=== PATIENT | female | born 1955 | race Caucasian/White ===

== ENCOUNTER 2016-10-29 09:29 | Inpatient (IN) | payer MEDICAID ==
[~2016-10-29] VITALS: Ht 170.2 cm; Wt 146.1 kg
[~2016-10-29 09:29] MED LIST: ALBU4TAB4 PO; ALBUPOW26 IN; ALPR0.5T PO; AMLO5TAB2 PO; FURO80TA PO; METO-169 PO; ONGLYZA PO; [UNRECOGNIZED DRUG - OTHER] IN
[2016-10-29] MEDS ORDERED: FUROSEMIDE 20 MG/2 ML VIAL IV ONE (09:45)
[2016-10-29 11:01] LABS: B-Type Natriuretic Peptide 30.08 pg/mL (0-100)
[2016-10-29 11:02] LABS: Albumin 3.4 g/dL (3.4-5.0); BUN/Creatinine Ratio 23.6; Bilirubin, Total 0.4 mg/dL (0.2-1.0); Calcium 10.1 mg/dL (8.5-10.1); Potassium 4.4 mmol/L (3.5-5.1); Total Protein 7.7 g/dL (6.4-8.2)
[2016-10-29 11:04] LABS: Temperature: 22.3 C (20.0-25.0)
[2016-10-29] MEDS ORDERED: IOHEXOL 350 MG/ML 100ML IJ ONE (11:06)
[2016-10-29 11:11] LABS: Basophils # (auto) 0.1 uL; Eosinophils # (auto) 0.2 uL; Eosinophils % (auto) 1.6 % (0.0-7.0); Hematocrit 37.9 % (36.0-46.0); Hemoglobin 11.8 g/dL (12.2-16.2); Lymphocytes # (auto) 1.7 uL; Lymphocytes % (auto) 17.6 % (10.0-50.0); Mean Corpuscular Hgb Conc. 31.1 g/dL (32.0-36.0); Mean Corpuscular Volume 90.1 fL (80.0-100.0); Mean Platelet Volume 9.5 fL (7.4-10.4); Monocytes # (auto) 0.7 uL; Monocytes % (auto) 7.6 % (0.0-12.0); Neutrophils # (auto) 6.8 uL; Neutrophils % (auto) 72.2 % (37.0-80.0); Platelet Count (auto) 168 10^3/uL (140-450); Red Cell Distribution Width 14.7 % (11.6-16.0); White Blood Cell 9.5 10^3/uL (4.4-10.8)
[2016-10-29] MEDS ORDERED: ALBUTEROL SULF 2.5 MG/0.5ML(0.5%) NEB SOLN NEB ONE ×2 (11:15→12:30)
[2016-10-29] MEDS ORDERED: IPRATROPIUM BROM 0.5 MG/2.5ML INH SOL NEB ONE ×2 (11:15→12:30)
[2016-10-29] MEDS ORDERED: DEXTROSE (50%) 50ML SYRG IV PRN (14:30)
[2016-10-29] MEDS ORDERED: DOCUSATE SOD 100 MG CAP PO PRN (15:00)
[2016-10-29] MEDS ORDERED: ONDANSETRON HCL 4 MG/2 ML VIAL IV PRN (15:00)
[2016-10-29] MEDS ORDERED: HYDROcodone-ACET 5/325MG TAB PO PRN (15:00)
[2016-10-29] MEDS ORDERED: POTASSIUM CHL 20 Meq TABLET PO ONE (15:00)
[2016-10-29] MEDS ORDERED: TEMAZEPAM 15 MG CAP PO PRN (15:00)
[2016-10-29] MEDS ORDERED: ALPRAZolam 0.25 MG TAB PO PRN (15:00)
[2016-10-29] MEDS ORDERED: NITROGLYCERIN 0.4 MG SL TAB SL PRN (15:00)
[2016-10-29] MEDS ORDERED: MORPHINE SULF INJ 2 MG/ML SYRINGE 1ML IV PRN ×2 (15:00)
[2016-10-29] MEDS ORDERED: ACETAMINOPHEN 325 MG TAB PO PRN (15:00)
[2016-10-29] MEDS: ENOXAPARIN SOD 40 MG/0.4 ML SYRINGE SC SCH (15:15)
[2016-10-29] MEDS: DOXYCYCLINE HYC 100MG/250ML 250 ML IV SCH ×2 (15:16→22:00)
[2016-10-29] MEDS: FUROSEMIDE 40 MG/4 ML VIAL IV SCH ×2 (17:02→18:00)
[2016-10-29] MEDS: ACCU-CHEK COMFORT CURVE STRIP VI SCH ×2 (17:08→22:00)
[2016-10-29] MEDS: InsuLIN REG 1unit/0.01ml Soln (100units/ml) SC SCH ×2 (17:08→22:00)
[2016-10-29] MEDS: ALBUTEROL SULF 2 MG/5ML ORAL SYRUP PO SCH ×2 (18:00→23:43)
[2016-10-29] MEDS: ALBUTEROL SULF 2.5 MG/0.5ML(0.5%) NEB SOLN NEB PRN (20:45)
[2016-10-29 22:00] VITALS: BP 139/65
[2016-10-29] MEDS: SODIUM CHLOR 0.9% PF (SALINE LOCK) 10ML VIAL IV SCH (22:38)
[2016-10-29 23:15] VITALS: BP 139/65
[2016-10-30] MEDS: ALBUTEROL SULF 2.5 MG/0.5ML(0.5%) NEB SOLN NEB PRN ×5 (02:35→21:20)
[2016-10-30 03:39] VITALS: BP 139/65
[2016-10-30 05:27] VITALS: BP 119/51
[2016-10-30] MEDS: FUROSEMIDE 40 MG/4 ML VIAL IV SCH ×2 (05:54→17:25)
[2016-10-30] MEDS: SODIUM CHLOR 0.9% PF (SALINE LOCK) 10ML VIAL IV SCH ×3 (05:54→22:37)
[2016-10-30] MEDS: ACCU-CHEK COMFORT CURVE STRIP VI SCH ×4 (05:55→22:00)
[2016-10-30] MEDS: ALBUTEROL SULF 2 MG/5ML ORAL SYRUP PO SCH ×4 (05:57→22:36)
[2016-10-30] MEDS: InsuLIN REG 1unit/0.01ml Soln (100units/ml) SC SCH ×4 (06:37→23:01)
[2016-10-30 07:02] LABS: Albumin 3.1 g/dL (3.4-5.0); Calcium 8.8 mg/dL (8.5-10.1)
[2016-10-30 07:05] LABS: Bilirubin, Total 0.4 mg/dL (0.2-1.0); Total Protein 7.2 g/dL (6.4-8.2)
[2016-10-30 07:07] LABS: Basophils # (auto) 0.1 uL; Basophils % (auto) 0.6 % (0.0-2.0); Eosinophils # (auto) 0.1 uL; Eosinophils % (auto) 1.2 % (0.0-7.0); Hemoglobin 12.1 g/dL (12.2-16.2); Lymphocytes # (auto) 1.7 uL; Lymphocytes % (auto) 18.6 % (10.0-50.0); Mean Corpuscular Hemoglobin 28.9 pg (28.0-32.0); Mean Corpuscular Hgb Conc. 32.6 g/dL (32.0-36.0); Mean Corpuscular Volume 88.5 fL (80.0-100.0); Mean Platelet Volume 9.7 fL (7.4-10.4); Monocytes # (auto) 0.8 uL; Monocytes % (auto) 8.4 % (0.0-12.0); Neutrophils # (auto) 6.7 uL; Neutrophils % (auto) 71.2 % (37.0-80.0); Platelet Count (auto) 149 10^3/uL (140-450); Red Cell Distribution Width 15.7 % (11.6-16.0); White Blood Cell 9.3 10^3/uL (4.4-10.8)
[2016-10-30 07:44] LABS: Urine Bilirubin Negative (Negative); Urine Blood 1+ /uL (Negative); Urine Color Colorless (Yellow); Urine Glucose Normal (Normal); Urine Ketone Negative (Negative); Urine Nitrite Negative (Negative); Urine RBC 20 /hpf (0 - 4); Urine Urobilinogen Normal (Negative); Urine pH 5.5 (5.0-8.0)
[2016-10-30 09:00] VITALS: BP 131/83
[2016-10-30] MEDS ORDERED: PARoxetine 20 MG TAB PO SCH (10:00)
[2016-10-30] MEDS: ENOXAPARIN SOD 40 MG/0.4 ML SYRINGE SC SCH (10:00)
[2016-10-30] MEDS: DOXYCYCLINE HYC 100MG/250ML 250 ML IV SCH ×2 (10:12→22:36)
[2016-10-30] MEDS: MULTIPLE VITAMIN TAB PO SCH (10:12)
[2016-10-30] MEDS: POTASSIUM CHL 20 Meq TABLET PO SCH (10:12)
[2016-10-30 13:00] VITALS: BP 149/90
[2016-10-30 17:00] VITALS: BP 131/73
[2016-10-30] MEDS: Boost Glucose Control 8 Ounces PO SCH (17:26)
[2016-10-30 21:23] VITALS: BP 139/54
[2016-10-31 05:12] VITALS: BP 146/59
[2016-10-31] MEDS: ALBUTEROL SULF 2 MG/5ML ORAL SYRUP PO SCH ×3 (06:00→12:00)
[2016-10-31] MEDS: ALBUTEROL SULF 2.5 MG/0.5ML(0.5%) NEB SOLN NEB PRN ×3 (06:33→20:02)
[2016-10-31] MEDS: FUROSEMIDE 40 MG/4 ML VIAL IV SCH ×2 (06:34→18:08)
[2016-10-31] MEDS: SODIUM CHLOR 0.9% PF (SALINE LOCK) 10ML VIAL IV SCH ×3 (06:35→21:48)
[2016-10-31 06:46] LABS: Basophils # (auto) 0.1 uL; Basophils % (auto) 0.7 % (0.0-2.0); Eosinophils # (auto) 0.2 uL; Eosinophils % (auto) 2.1 % (0.0-7.0); Hematocrit 38.5 % (36.0-46.0); Hemoglobin 12.3 g/dL (12.2-16.2); Lymphocytes # (auto) 1.8 uL; Lymphocytes % (auto) 21.3 % (10.0-50.0); Mean Corpuscular Hemoglobin 28.6 pg (28.0-32.0); Mean Corpuscular Hgb Conc. 31.9 g/dL (32.0-36.0); Mean Corpuscular Volume 89.7 fL (80.0-100.0); Mean Platelet Volume 9.5 fL (7.4-10.4); Monocytes # (auto) 0.6 uL; Monocytes % (auto) 7.3 % (0.0-12.0); Neutrophils # (auto) 5.7 uL; Neutrophils % (auto) 68.6 % (37.0-80.0); Platelet Count (auto) 182 10^3/uL (140-450); Red Cell Distribution Width 15.9 % (11.6-16.0); White Blood Cell 8.3 10^3/uL (4.4-10.8)
[2016-10-31] MEDS: InsuLIN REG 1unit/0.01ml Soln (100units/ml) SC SCH ×4 (06:48→21:47)
[2016-10-31] MEDS: ACCU-CHEK COMFORT CURVE STRIP VI SCH ×4 (06:49→21:47)
[2016-10-31 07:09] LABS: Albumin 3.2 g/dL (3.4-5.0); BUN/Creatinine Ratio 21.4; Potassium 3.9 mmol/L (3.5-5.1)
[2016-10-31 07:12] LABS: Bilirubin, Total 0.4 mg/dL (0.2-1.0); Total Protein 7.7 g/dL (6.4-8.2)
[2016-10-31 09:00] VITALS: BP 132/64
[2016-10-31] MEDS: POTASSIUM CHL 20 Meq TABLET PO SCH (09:28)
[2016-10-31] MEDS: ENOXAPARIN SOD 40 MG/0.4 ML SYRINGE SC SCH ×2 (09:28→09:31)
[2016-10-31] MEDS: MULTIPLE VITAMIN TAB PO SCH (09:28)
[2016-10-31] MEDS: Boost Glucose Control 8 Ounces PO SCH ×3 (09:28→18:09)
[2016-10-31] MEDS: DOXYCYCLINE HYC 100MG/250ML 250 ML IV SCH (09:28)
[2016-10-31 13:00] VITALS: BP 145/50
[2016-10-31] MEDS: AZTREONAM 1GM INJ 1 GM in D5W 5% 50 ML IV SCH ×2 (14:08→21:48)
[2016-10-31] MEDS: IPRATROPIUM BROM 0.5 MG/2.5ML INH SOL NEB SCH ×2 (15:52→20:02)
[2016-10-31 17:00] VITALS: BP 117/63
[2016-10-31] MEDS: methylPREDNISolone SOD SUCC 40 MG/ML VL IV SCH (21:48)
[2016-10-31 22:36] VITALS: BP 112/56
[2016-11-01] MEDS: ALBUTEROL SULF 2.5 MG/0.5ML(0.5%) NEB SOLN NEB PRN ×4 (02:07→14:14)
[2016-11-01] MEDS: IPRATROPIUM BROM 0.5 MG/2.5ML INH SOL NEB SCH ×4 (02:07→14:14)
[2016-11-01 05:09] VITALS: BP 115/42
[2016-11-01] MEDS: AZTREONAM 1GM INJ 1 GM in D5W 5% 50 ML IV SCH (06:00)
[2016-11-01] MEDS: FUROSEMIDE 40 MG/4 ML VIAL IV SCH (06:04)
[2016-11-01] MEDS: SODIUM CHLOR 0.9% PF (SALINE LOCK) 10ML VIAL IV SCH (06:05)
[2016-11-01] MEDS: ACCU-CHEK COMFORT CURVE STRIP VI SCH ×2 (06:21→11:28)
[2016-11-01] MEDS: InsuLIN REG 1unit/0.01ml Soln (100units/ml) SC SCH ×2 (06:21→11:29)
[2016-11-01] MEDS: Boost Glucose Control 8 Ounces PO SCH ×2 (08:00→11:47)
[2016-11-01 08:18] LABS: Basophils # (auto) 0.1 uL; Basophils % (auto) 1.1 % (0.0-2.0); Eosinophils # (auto) 0.2 uL; Eosinophils % (auto) 2.2 % (0.0-7.0); Hematocrit 39.3 % (36.0-46.0); Hemoglobin 12.5 g/dL (12.2-16.2); Lymphocytes # (auto) 2.3 uL; Lymphocytes % (auto) 21.2 % (10.0-50.0); Mean Corpuscular Hemoglobin 28.6 pg (28.0-32.0); Mean Corpuscular Hgb Conc. 31.9 g/dL (32.0-36.0); Mean Corpuscular Volume 89.7 fL (80.0-100.0); Mean Platelet Volume 8.9 fL (7.4-10.4); Monocytes # (auto) 0.7 uL; Monocytes % (auto) 6.2 % (0.0-12.0); Neutrophils # (auto) 7.5 uL; Neutrophils % (auto) 69.3 % (37.0-80.0); Platelet Count (auto) 209 10^3/uL (140-450); Red Cell Distribution Width 15.9 % (11.6-16.0); White Blood Cell 10.9 10^3/uL (4.4-10.8)
[2016-11-01 08:20] LABS: BUN/Creatinine Ratio 24.3; Calcium 9.1 mg/dL (8.5-10.1); Magnesium 1.7 mg/dL (1.6-2.6); Potassium 3.7 mmol/L (3.5-5.1)
[2016-11-01 08:21] LABS: INR 1.04 (0.9-1.15); Prothrombin Time 10.7 sec (9.37-12.3)
[2016-11-01 08:40] VITALS: BP 153/58
[2016-11-01] MEDS: ENOXAPARIN SOD 40 MG/0.4 ML SYRINGE SC SCH (10:00)
[2016-11-01] MEDS: methylPREDNISolone SOD SUCC 40 MG/ML VL IV SCH (10:00)
[2016-11-01] MEDS ORDERED: AZITHROMYCIN 500MG/D5W 250ML 250 ML IV SCH (10:00)
[2016-11-01] MEDS: POTASSIUM CHL 20 Meq TABLET PO SCH (10:12)
[2016-11-01] MEDS: MULTIPLE VITAMIN TAB PO SCH (10:12)
[2016-11-01 12:43] VITALS: BP 112/61
[2016-11-01 14:39] VITALS: BP 112/61
== END 2016-11-01 15:26 | disposition home or self-care (01) | DRG 140 ==
LOC: ER 09:29 → EDUNIT# 09:29 → EDBD 09:29 → TELE 09:30 → TELE-EAST 22:55
PROVIDERS: ADMIT Internal Medicine; ATTEND Internal Medicine
DX: J44.0 Chronic obstructive pulmonary disease with (acute) lower respiratory infection (principal); I50.43 Acute on chronic combined systolic (congestive) and diastolic (congestive) heart failure; E44.0 Moderate protein-calorie malnutrition; E11.21 Type 2 diabetes mellitus with diabetic nephropathy; Z99.81 Dependence on supplemental oxygen; J44.1 Chronic obstructive pulmonary disease with (acute) exacerbation; E66.01 Morbid (severe) obesity due to excess calories; I13.0 Hypertensive heart and chronic kidney disease with heart failure and stage 1 through stage 4 chronic kidney disease, or unspecified chronic kidney disease; E11.22 Type 2 diabetes mellitus with diabetic chronic kidney disease; E78.5 Hyperlipidemia, unspecified; J20.9 Acute bronchitis, unspecified; J45.909 Unspecified asthma, uncomplicated; Z83.3 Family history of diabetes mellitus; Z68.43 Body mass index [BMI] 50.0-59.9, adult; Z79.4 Long term (current) use of insulin; Z90.710 Acquired absence of both cervix and uterus; Z90.89 Acquired absence of other organs; Z98.51 Tubal ligation status; Z80.9 Family history of malignant neoplasm, unspecified; Z82.49 Family history of ischemic heart disease and other diseases of the circulatory system; N18.2 Chronic kidney disease, stage 2 (mild); Z88.1 Allergy status to other antibiotic agents; Z88.8 Allergy status to other drugs, medicaments and biological substances; I69.959 Hemiplegia and hemiparesis following unspecified cerebrovascular disease affecting unspecified side
CPT/HCPCS: 36415; 71010; 80048; 80053; 81001; 82962; 83036; 83735; 83880; 84484; 85025; 85379; 85610; 87040; 87086; 87088; 87186; 93005; 93306; 93970; 94640; 96374; 96375; J1815; J2405; J3490; J7060

== ENCOUNTER 2017-08-06 02:45 | Inpatient (IN) | payer MEDICAID ==
[~2017-08-06] VITALS: Ht 157.5 cm; Wt 142.5 kg
[~2017-08-06 02:45] MED LIST changes: -FURO80TA PO
[2017-08-06] MEDS ORDERED: SODIUM CHLORIDE 0.9% 1,000 ML IV ONE (02:58)
[2017-08-06] MEDS ORDERED: IPRATROPIUM BROM 0.5 MG/2.5ML INH SOL HHN ONE (03:00)
[2017-08-06] MEDS ORDERED: ALBUTEROL SULF 2.5 MG/0.5ML(0.5%) NEB SOLN HHN ONE (03:00)
[2017-08-06] MEDS ORDERED: FUROSEMIDE 40 MG/4 ML VIAL IV ONE (03:00)
[2017-08-06 03:07] LABS: Basophils # (auto) 0.1 uL; Basophils % (auto) 0.9 % (0.0-2.0); Eosinophils # (auto) 0.1 uL; Eosinophils % (auto) 1.5 % (0.0-7.0); Hematocrit 38.4 % (36.0-46.0); Hemoglobin 12.4 g/dL (12.2-16.2); Lymphocytes # (auto) 2.4 uL; Lymphocytes % (auto) 26.2 % (10.0-50.0); Mean Corpuscular Hgb Conc. 32.4 g/dL (32.0-36.0); Mean Corpuscular Volume 92.6 fL (80.0-100.0); Monocytes # (auto) 0.7 uL; Monocytes % (auto) 7.3 % (0.0-12.0); Neutrophils # (auto) 5.9 uL; Neutrophils % (auto) 64.1 % (37.0-80.0); Nucleated Red Blood Cells % 0.1 %; Platelet Count (auto) 160 10^3/uL (140-450); Red Cell Distribution Width 15.4 % (11.8-14.3); White Blood Cell 9.2 10^3/uL (4.4-10.8)
[2017-08-06 03:42] LABS: Albumin 3.4 g/dL (3.4-5.0); Anion Gap 6 (5-15); Blood Urea Nitrogen 20 mg/dL (7-18); Calcium 9.3 mg/dL (8.5-10.1); Carbon Dioxide 35 mmol/L (21-32); Chloride 103 mmol/L (98-107); Glucose 128 mg/dL (74-106); Magnesium 1.9 mg/dL (1.6-2.6); Potassium 4.5 mmol/L (3.5-5.1); Sodium 144 mmol/L (136-145)
[2017-08-06 03:44] LABS: Allen Test Yes; Base Excess 9.1 mmol/L (-2.0-2.0); Blood 02Sat 95.1 % (96-100); Blood COHb 2.1 % (0.5-1.5); Blood MetHb 0.2 % (0.0-1.5); HCO3 36.2 mmol/L (22-26.0); HHb 4.8 % (0.0-5.0); MODE NASAL CANNULA; O2Hb 92.9 % (94.0-97.0); PCO2 62.1 mmHg (35.0-45.0); PCO2(T) 62.1 mmHg (35.0-45.0); PO2 81.4 mmHg (80.0-100.0); PO2(T) 81.4 mmHg (80.0-100.0); Sample Type Arterial; pH 7.384 (7.350-7.450)
[2017-08-06 03:57] LABS: Alkaline Phosphatase 112 U/L (45-117); Aspartate Aminotransferase 25 U/L (15-37); BUN/Creatinine Ratio 21.3; Bilirubin, Total 0.4 mg/dL (0.2-1.0); GFR African American 77 mL/min; GFR Non-African American 64 mL/min; Total Protein 7.8 g/dL (6.4-8.2)
[2017-08-06 04:05] LABS: B-Type Natriuretic Peptide 59.63 pg/mL (0-100)
[2017-08-06 04:15] LABS: Temperature: 21.9 C (20.0-25.0)
[2017-08-06 05:28] LABS: Lactic Acid w/Reflex 2.1 mmol/L (0.4-2.0)
[2017-08-06 05:52] LABS: REFLEX LACTIC ACID YES OR NO YES
[2017-08-06] MEDS ORDERED: ACETAMINOPHEN 325 MG TAB PO PRN (06:15)
[2017-08-06] MEDS ORDERED: HYDROcodone-ACET 5/325MG TAB PO PRN (06:15)
[2017-08-06] MEDS ORDERED: IPRATROPIUM BROM 0.5 MG/2.5ML INH SOL NEB PRN (06:15)
[2017-08-06] MEDS ORDERED: DEXTROSE (50%) 50ML SYRG IV PRN (06:15)
[2017-08-06] MEDS ORDERED: NITROGLYCERIN 0.4 MG SL TAB SL PRN (06:15)
[2017-08-06] MEDS ORDERED: ALBUTEROL SULF 2.5 MG/0.5ML(0.5%) NEB SOLN NEB PRN (06:15)
[2017-08-06] MEDS ORDERED: MORPHINE SULF INJ 2 MG/ML SYRINGE 1ML IV PRN (06:15)
[2017-08-06] MEDS ORDERED: TEMAZEPAM 15 MG CAP PO PRN (06:15)
[2017-08-06] MEDS ORDERED: ONDANSETRON HCL 4 MG/2 ML VIAL IV PRN (06:15)
[2017-08-06] MEDS: cefTRIAXone 1GM/50ML D5W 50 ML IV SCH (09:10)
[2017-08-06] MEDS: METOPROLOL TARTRATE 50 MG TAB PO SCH ×2 (09:28→21:12)
[2017-08-06] MEDS: AZITHROMYCIN 500MG/D5W 250ML 250 ML IV SCH (09:29)
[2017-08-06] MEDS: FAMOTIDINE 20 MG TAB PO SCH ×2 (09:29→21:13)
[2017-08-06] MEDS: amLODIPine BESYLATE 5 MG TAB PO SCH ×2 (09:29→22:00)
[2017-08-06] MEDS: ENOXAPARIN SOD 40 MG/0.4 ML SYRINGE SC SCH (09:29)
[2017-08-06 10:11] LABS: Urine RBC None Seen /hpf (0 - 4)
[2017-08-06 10:22] LABS: Urine Bilirubin Negative (Negative); Urine Blood Negative /uL (Negative); Urine Glucose Normal (Normal); Urine Ketone Negative (Negative); Urine Nitrite Negative (Negative); Urine Urobilinogen Normal (Negative)
[2017-08-06 10:23] LABS: Urine Color Straw (Yellow)
[2017-08-06] MEDS: InsuLIN REG 1unit/0.01ml Soln (100units/ml) SC SCH ×3 (12:00→21:13)
[2017-08-06] MEDS: ACCU-CHEK COMFORT CURVE STRIP VI SCH ×3 (12:00→21:13)
[2017-08-06] MEDS: IPRATROPIUM BROM 0.5 MG/2.5ML INH SOL NEB SCH ×3 (14:00→22:14)
[2017-08-06] MEDS: ALBUTEROL SULF 2.5 MG/0.5ML(0.5%) NEB SOLN NEB PRN ×3 (14:41→22:13)
[2017-08-06 16:14] VITALS: BP 143/72
[2017-08-06] MEDS: FUROSEMIDE 40 MG/4 ML VIAL IV SCH (18:26)
[2017-08-06 22:00] VITALS: BP 140/101
[2017-08-06] MEDS ORDERED: ALPR0.254 PO (23:25)
[2017-08-07 05:27] VITALS: BP 126/56
[2017-08-07] MEDS: FUROSEMIDE 40 MG/4 ML VIAL IV SCH ×2 (05:35→18:00)
[2017-08-07] MEDS: InsuLIN REG 1unit/0.01ml Soln (100units/ml) SC SCH ×5 (05:35→23:48)
[2017-08-07] MEDS: ACCU-CHEK COMFORT CURVE STRIP VI SCH ×4 (05:36→23:48)
[2017-08-07] MEDS: IPRATROPIUM BROM 0.5 MG/2.5ML INH SOL NEB SCH ×5 (05:57→22:14)
[2017-08-07] MEDS: ALBUTEROL SULF 2.5 MG/0.5ML(0.5%) NEB SOLN NEB PRN ×4 (05:57→22:14)
[2017-08-07 06:54] LABS: Basophils # (auto) 0.1 uL; Eosinophils # (auto) 0.1 uL; Eosinophils % (auto) 1.4 % (0.0-7.0); Hematocrit 36.9 % (36.0-46.0); Hemoglobin 12.2 g/dL (12.2-16.2); Lymphocytes % (auto) 21.3 % (10.0-50.0); Mean Corpuscular Hemoglobin 30.6 pg (28.0-32.0); Mean Corpuscular Hgb Conc. 33.1 g/dL (32.0-36.0); Mean Corpuscular Volume 92.2 fL (80.0-100.0); Mean Platelet Volume 8.8 fL (6.9-10.8); Monocytes # (auto) 0.8 uL; Neutrophils # (auto) 6.3 uL; Neutrophils % (auto) 67.3 % (37.0-80.0); Nucleated Red Blood Cells % 0.1 %; Platelet Count (auto) 176 10^3/uL (140-450); Red Cell Distribution Width 14.7 % (11.8-14.3); White Blood Cell 9.3 10^3/uL (4.4-10.8)
[2017-08-07 07:05] LABS: Potassium 3.9 mmol/L (3.5-5.1)
[2017-08-07 07:15] LABS: Albumin 3.3 g/dL (3.4-5.0); BUN/Creatinine Ratio 27.5; Bilirubin, Total 0.5 mg/dL (0.2-1.0); Calcium 9.3 mg/dL (8.5-10.1); Total Protein 7.4 g/dL (6.4-8.2)
[2017-08-07 09:00] VITALS: BP 136/70
[2017-08-07] MEDS: cefTRIAXone 1GM/50ML D5W 50 ML IV SCH ×2 (09:00→09:36)
[2017-08-07] MEDS: ENOXAPARIN SOD 40 MG/0.4 ML SYRINGE SC SCH (09:53)
[2017-08-07] MEDS: FAMOTIDINE 20 MG TAB PO SCH ×3 (09:53→21:46)
[2017-08-07] MEDS: AZITHROMYCIN 500MG/D5W 250ML 250 ML IV SCH (09:54)
[2017-08-07] MEDS: METOPROLOL TARTRATE 50 MG TAB PO SCH ×3 (09:57→21:45)
[2017-08-07] MEDS: amLODIPine BESYLATE 5 MG TAB PO SCH ×3 (09:57→21:46)
[2017-08-07] MEDS ORDERED: ALPR0.25 PO (10:36)
[2017-08-07 13:00] VITALS: BP 129/44
[2017-08-07] MEDS: ALPRAZolam 0.25 MG TAB PO SCH ×2 (16:36→21:44)
[2017-08-07 16:55] VITALS: BP 90/77
[2017-08-07 22:30] VITALS: BP 162/95
[2017-08-08] MEDS: ALBUTEROL SULF 2.5 MG/0.5ML(0.5%) NEB SOLN NEB PRN (02:33)
[2017-08-08 05:42] VITALS: BP 128/89
[2017-08-08] MEDS: ACCU-CHEK COMFORT CURVE STRIP VI SCH ×3 (05:42→17:20)
[2017-08-08] MEDS: InsuLIN REG 1unit/0.01ml Soln (100units/ml) SC SCH ×3 (05:42→17:20)
[2017-08-08] MEDS: FUROSEMIDE 40 MG/4 ML VIAL IV SCH ×2 (05:51→18:09)
[2017-08-08] MEDS: IPRATROPIUM BROM 0.5 MG/2.5ML INH SOL NEB SCH ×5 (07:26→23:56)
[2017-08-08] MEDS: ALBUTEROL SULF 2.5 MG/0.5ML(0.5%) NEB SOLN NEB SCH ×5 (07:26→23:56)
[2017-08-08] MEDS: ARMODAFINIL 150 MG TAB PO SCH (08:00)
[2017-08-08] MEDS: cefTRIAXone 1GM/50ML D5W 50 ML IV SCH (08:08)
[2017-08-08 09:00] VITALS: BP 171/67
[2017-08-08] MEDS: AZITHROMYCIN 500MG/D5W 250ML 250 ML IV SCH (09:43)
[2017-08-08] MEDS: METOPROLOL TARTRATE 50 MG TAB PO SCH ×2 (09:43→21:58)
[2017-08-08] MEDS: ALPRAZolam 0.25 MG TAB PO SCH ×2 (09:44→21:58)
[2017-08-08] MEDS: FAMOTIDINE 20 MG TAB PO SCH ×2 (09:44→21:58)
[2017-08-08] MEDS: amLODIPine BESYLATE 5 MG TAB PO SCH ×2 (09:44→21:58)
[2017-08-08] MEDS: ENOXAPARIN SOD 40 MG/0.4 ML SYRINGE SC SCH (09:44)
[2017-08-08 13:00] VITALS: BP 131/58
[2017-08-08] MEDS: AZITHROMYCIN 250 MG TAB PO SCH (14:36)
[2017-08-08 17:00] VITALS: BP 146/72
[2017-08-08 20:49] VITALS: BP 142/73
[2017-08-09] MEDS: ACCU-CHEK COMFORT CURVE STRIP VI SCH ×5 (00:08→23:46)
[2017-08-09] MEDS: InsuLIN REG 1unit/0.01ml Soln (100units/ml) SC SCH ×6 (00:09→23:47)
[2017-08-09] MEDS: IPRATROPIUM BROM 0.5 MG/2.5ML INH SOL NEB SCH ×5 (02:45→21:48)
[2017-08-09] MEDS: ALBUTEROL SULF 2.5 MG/0.5ML(0.5%) NEB SOLN NEB SCH ×5 (02:45→21:48)
[2017-08-09 05:00] VITALS: BP 125/53
[2017-08-09] MEDS: FUROSEMIDE 40 MG/4 ML VIAL IV SCH ×2 (06:10→17:30)
[2017-08-09] MEDS: ARMODAFINIL 150 MG TAB PO SCH (07:43)
[2017-08-09] MEDS: cefTRIAXone 1GM/50ML D5W 50 ML IV SCH (08:34)
[2017-08-09 09:00] VITALS: BP 158/85
[2017-08-09] MEDS: AZITHROMYCIN 250 MG TAB PO SCH (09:45)
[2017-08-09] MEDS: ALPRAZolam 0.25 MG TAB PO SCH ×2 (09:45→19:16)
[2017-08-09] MEDS: FAMOTIDINE 20 MG TAB PO SCH ×2 (09:46→21:31)
[2017-08-09] MEDS: ENOXAPARIN SOD 40 MG/0.4 ML SYRINGE SC SCH (09:46)
[2017-08-09] MEDS: METOPROLOL TARTRATE 50 MG TAB PO SCH ×2 (09:59→21:28)
[2017-08-09] MEDS: amLODIPine BESYLATE 5 MG TAB PO SCH ×2 (10:00→21:29)
[2017-08-09 13:00] VITALS: BP 126/61
[2017-08-09 17:00] VITALS: BP 157/77
[2017-08-09 18:52] LABS: BUN/Creatinine Ratio 33.8; Calcium 9.2 mg/dL (8.5-10.1); Potassium 3.8 mmol/L (3.5-5.1)
[2017-08-09 21:41] VITALS: BP 159/72
[2017-08-09 23:49] VITALS: BP 159/72
[2017-08-10] MEDS: IPRATROPIUM BROM 0.5 MG/2.5ML INH SOL NEB SCH ×4 (02:22→14:44)
[2017-08-10] MEDS: ALBUTEROL SULF 2.5 MG/0.5ML(0.5%) NEB SOLN NEB SCH ×4 (02:22→14:44)
[2017-08-10 05:00] VITALS: BP 142/67
[2017-08-10] MEDS: ACCU-CHEK COMFORT CURVE STRIP VI SCH ×2 (06:26→11:35)
[2017-08-10] MEDS: FUROSEMIDE 40 MG/4 ML VIAL IV SCH (06:27)
[2017-08-10] MEDS: InsuLIN REG 1unit/0.01ml Soln (100units/ml) SC SCH ×2 (06:27→12:14)
[2017-08-10 09:00] VITALS: BP 144/82
[2017-08-10] MEDS: cefTRIAXone 1GM/50ML D5W 50 ML IV SCH (09:00)
[2017-08-10] MEDS: ARMODAFINIL 150 MG TAB PO SCH (09:13)
[2017-08-10] MEDS: METOPROLOL TARTRATE 50 MG TAB PO SCH (09:14)
[2017-08-10] MEDS: AZITHROMYCIN 250 MG TAB PO SCH (09:16)
[2017-08-10] MEDS: ALPRAZolam 0.25 MG TAB PO SCH (09:20)
[2017-08-10] MEDS: FAMOTIDINE 20 MG TAB PO SCH (09:21)
[2017-08-10] MEDS: amLODIPine BESYLATE 5 MG TAB PO SCH (09:21)
[2017-08-10] MEDS: ENOXAPARIN SOD 40 MG/0.4 ML SYRINGE SC SCH (09:21)
[2017-08-10 13:00] VITALS: BP 120/57
[2017-08-10 13:49] VITALS: BP 120/57
[2017-08-10] MEDS ORDERED: ALBUTEROL SULF 2 MG/5ML ORAL SYRUP PO SCH (14:00)
[2017-08-11] MEDS ORDERED: DILTIAZEM HCL 180MG ER CAP PO SCH (10:00)
== END 2017-08-10 14:40 | disposition home or self-care (01) | DRG 140 ==
LOC: ER 02:52 → TELE 02:53 → TELE-WESTW 21:23 → WEST WING 21:25 → TELE-WESTW 08-07 00:24
PROVIDERS: ADMIT Internal Medicine; ATTEND Internal Medicine Pulmonary Disease
DX: J44.1 Chronic obstructive pulmonary disease with (acute) exacerbation (principal); J96.20 Acute and chronic respiratory failure, unspecified whether with hypoxia or hypercapnia; I50.33 Acute on chronic diastolic (congestive) heart failure; E87.4 Mixed disorder of acid-base balance; E11.9 Type 2 diabetes mellitus without complications; E78.5 Hyperlipidemia, unspecified; F41.9 Anxiety disorder, unspecified; E44.1 Mild protein-calorie malnutrition; E66.2 Morbid (severe) obesity with alveolar hypoventilation; I11.0 Hypertensive heart disease with heart failure; Z68.42 Body mass index [BMI] 45.0-49.9, adult; Z83.3 Family history of diabetes mellitus; Z80.9 Family history of malignant neoplasm, unspecified; Z90.710 Acquired absence of both cervix and uterus; Z82.49 Family history of ischemic heart disease and other diseases of the circulatory system; Z86.73 Personal history of transient ischemic attack (TIA), and cerebral infarction without residual deficits; Z99.81 Dependence on supplemental oxygen; Z68.43 Body mass index [BMI] 50.0-59.9, adult; Z90.49 Acquired absence of other specified parts of digestive tract; Z98.51 Tubal ligation status; Z80.8 Family history of malignant neoplasm of other organs or systems; Z88.6 Allergy status to analgesic agent; Z88.1 Allergy status to other antibiotic agents; Z71.3 Dietary counseling and surveillance
CPT/HCPCS: 36415; 36600; 51702; 71010; 80048; 80053; 81001; 82805; 82962; 83605; 83735; 83880; 84484; 85025; 87040; 94640; 94644; 94761; 96361; 96365; 96372; 96375; J0696; J1815; J2405

== ENCOUNTER 2017-10-25 01:44 | Inpatient (IN) | payer MEDICAID ==
[~2017-10-25] VITALS: Ht 167.6 cm; Wt 148.4 kg
[~2017-10-25 01:44] MED LIST changes: +ALPR0.254 PO; -ALPR0.5T PO
[2017-10-25] MEDS ORDERED: FUROSEMIDE 40 MG/4 ML VIAL IV ONE (02:45)
[2017-10-25 03:20] LABS: Basophils # (auto) 0.1 uL; Eosinophils # (auto) 0.2 uL; Eosinophils % (auto) 1.9 % (0.0-7.0); Hematocrit 35.1 % (36.0-46.0); Hemoglobin 11.3 g/dL (12.2-16.2); Lymphocytes % (auto) 20.6 % (10.0-50.0); Mean Corpuscular Hemoglobin 29.8 pg (28.0-32.0); Mean Corpuscular Hgb Conc. 32.2 g/dL (32.0-36.0); Mean Corpuscular Volume 92.6 fL (80.0-100.0); Monocytes # (auto) 0.7 uL; Monocytes % (auto) 7.1 % (0.0-12.0); Neutrophils # (auto) 6.9 uL; Neutrophils % (auto) 69.4 % (37.0-80.0); Nucleated Red Blood Cells % 0.1 %; Platelet Count (auto) 167 10^3/uL (140-450); Red Blood Cells 3.79 10^6/uL (4.0-5.20); Red Cell Distribution Width 15.3 % (11.8-14.3); White Blood Cell 9.9 10^3/uL (4.4-10.8)
[2017-10-25 03:37] LABS: Blood Urea Nitrogen 22 mg/dL (7-18); Calcium 9.2 mg/dL (8.5-10.1); Chloride 102 mmol/L (98-107); Potassium 4.1 mmol/L (3.5-5.1); Sodium 140 mmol/L (136-145)
[2017-10-25 03:41] LABS: Alanine Aminotransferase 28 U/L (13-56); Albumin 3.3 g/dL (3.4-5.0); Anion Gap 5 (5-15); Aspartate Aminotransferase 24 U/L (15-37); BUN/Creatinine Ratio 33.8; Carbon Dioxide 33 mmol/L (21-32); GFR African American 118 mL/min; GFR Non-African American 98 mL/min; Glucose 137 mg/dL (74-106); Magnesium 2.1 mg/dL (1.6-2.6)
[2017-10-25 03:45] LABS: Alkaline Phosphatase 99 U/L (45-117); Bilirubin, Total 0.3 mg/dL (0.2-1.0); Total Protein 7.7 g/dL (6.4-8.2)
[2017-10-25 06:28] LABS: Urine Bacteria MANY /hpf (None Seen); Urine Blood Negative /uL (Negative); Urine Mucus FEW (None Seen); Urine WBC 8 /hpf (0 - 5)
[2017-10-25] MEDS ORDERED: IPRATROPIUM BROM 0.5 MG/2.5ML INH SOL NEB ONE (07:45)
[2017-10-25] MEDS ORDERED: ALBUTEROL SULF 2.5 MG/0.5ML(0.5%) NEB SOLN NEB ONE (07:45)
[2017-10-25] MEDS ORDERED: TEMAZEPAM 15 MG CAP PO PRN (09:15)
[2017-10-25] MEDS ORDERED: NITROGLYCERIN 0.4 MG SL TAB SL PRN (09:15)
[2017-10-25] MEDS ORDERED: MORPHINE SULFATE 4 MG/ML SYR/VIAL IV PRN (09:15)
[2017-10-25] MEDS ORDERED: DOXYCYCLINE HYC 100MG/250ML 250 ML IV SCH (09:15)
[2017-10-25] MEDS ORDERED: PROMETHAZINE HCL 25 MG/ML 1ML IV PRN (09:15)
[2017-10-25] MEDS ORDERED: MORPHINE SULF INJ 2 MG/ML SYRINGE 1ML IV PRN (09:15)
[2017-10-25] MEDS ORDERED: DEXTROSE (50%) 50ML SYRG IV PRN (09:15)
[2017-10-25] MEDS ORDERED: ACETAMINOPHEN 500 MG TAB PO PRN (09:15)
[2017-10-25] MEDS ORDERED: LACTULOSE 20Gm/30ML SOLN PO PRN (09:15)
[2017-10-25] MEDS ORDERED: HYDROcodone-ACET 5/325MG TAB PO PRN (09:15)
[2017-10-25] MEDS ORDERED: OSELTAMIVIR 75 MG CAP PO ONE (09:15)
[2017-10-25] MEDS: METOPROLOL SUCCINATE XL 50 MG TAB PO SCH ×2 (10:38→21:54)
[2017-10-25] MEDS: amLODIPine BESYLATE 5 MG TAB PO SCH ×2 (10:38→21:58)
[2017-10-25] MEDS: PANTOPRAZOLE 40 MG TAB PO SCH (10:38)
[2017-10-25] MEDS: ENOXAPARIN SOD 40 MG/0.4 ML SYRINGE SC SCH (10:39)
[2017-10-25] MEDS: ALPRAZolam 0.25 MG TAB PO SCH ×2 (10:39→21:52)
[2017-10-25] MEDS ORDERED: AZITHROMYCIN 500MG/ 250ML 250 ML IV ONE (10:47)
[2017-10-25] MEDS: AZITHROMYCIN 500MG/ 250ML 250 ML IV SCH (10:50)
[2017-10-25 11:47] LABS: Albumin 3.3 g/dL (3.4-5.0); BUN/Creatinine Ratio 28.8; Bilirubin, Total 0.3 mg/dL (0.2-1.0); Calcium 9.4 mg/dL (8.5-10.1); Potassium 4.3 mmol/L (3.5-5.1); Total Protein 7.5 g/dL (6.4-8.2)
[2017-10-25] MEDS: ACCU-CHEK COMFORT CURVE STRIP VI SCH ×3 (11:52→22:09)
[2017-10-25] MEDS: InsuLIN REG 1unit/0.01ml Soln (100units/ml) SC SCH ×3 (11:56→22:10)
[2017-10-25] MEDS: ALBUTEROL SULF 2.5 MG/0.5ML(0.5%) NEB SOLN NEB SCH ×2 (12:15→17:00)
[2017-10-25] MEDS: IPRATROPIUM BROM 0.5 MG/2.5ML INH SOL NEB SCH ×2 (12:15→19:01)
[2017-10-25 16:15] VITALS: BP_SYST 141; BP_SYST 163; BP_DIAS 72; BP_DIAS 86
[2017-10-25 17:29] VITALS: BP 163/86
[2017-10-25] MEDS: ALBUTEROL SULF 2.5 MG/0.5ML(0.5%) NEB SOLN NEB PRN ×2 (19:01→22:14)
[2017-10-25 19:04] VITALS: BP 113/86
[2017-10-25] MEDS: OSELTAMIVIR 75 MG CAP PO SCH (19:42)
[2017-10-25 22:00] VITALS: BP 152/64
[2017-10-25] MEDS ORDERED: FUROSEMIDE 20 MG TAB PO ONE (22:15)
[2017-10-26] MEDS: IPRATROPIUM BROM 0.5 MG/2.5ML INH SOL NEB SCH ×5 (00:38→23:24)
[2017-10-26] MEDS: ALBUTEROL SULF 2.5 MG/0.5ML(0.5%) NEB SOLN NEB SCH ×5 (00:39→23:24)
[2017-10-26] MEDS: ALBUTEROL SULF 2.5 MG/0.5ML(0.5%) NEB SOLN NEB PRN (04:12)
[2017-10-26 05:00] VITALS: BP 148/71
[2017-10-26 05:37] LABS: Basophils # (auto) 0.1 uL; Eosinophils # (auto) 0.2 uL; Eosinophils % (auto) 1.9 % (0.0-7.0); Hematocrit 36.4 % (36.0-46.0); Hemoglobin 11.7 g/dL (12.2-16.2); Lymphocytes # (auto) 1.8 uL; Lymphocytes % (auto) 22.9 % (10.0-50.0); Mean Corpuscular Hemoglobin 29.7 pg (28.0-32.0); Mean Corpuscular Hgb Conc. 32.1 g/dL (32.0-36.0); Mean Corpuscular Volume 92.5 fL (80.0-100.0); Monocytes # (auto) 0.6 uL; Monocytes % (auto) 7.8 % (0.0-12.0); Neutrophils # (auto) 5.3 uL; Neutrophils % (auto) 66.4 % (37.0-80.0); Platelet Count (auto) 153 10^3/uL (140-450); Red Blood Cells 3.93 10^6/uL (4.0-5.20); Red Cell Distribution Width 15.2 % (11.8-14.3)
[2017-10-26 06:04] LABS: Cholesterol 190 mg/dL (< 200); HDL Cholesterol 49 mg/dL (40-59); LDL Cholesterol 128 mg/dL (< 100); Triglycerides 187 mg/dL (< 150)
[2017-10-26] MEDS: ACCU-CHEK COMFORT CURVE STRIP VI SCH ×4 (06:31→21:38)
[2017-10-26] MEDS: InsuLIN REG 1unit/0.01ml Soln (100units/ml) SC SCH ×4 (06:31→21:39)
[2017-10-26 08:33] VITALS: BP 130/62
[2017-10-26] MEDS: amLODIPine BESYLATE 5 MG TAB PO SCH ×2 (10:00→21:40)
[2017-10-26] MEDS: OSELTAMIVIR 75 MG CAP PO SCH ×2 (10:00→21:41)
[2017-10-26] MEDS: ENOXAPARIN SOD 40 MG/0.4 ML SYRINGE SC SCH ×2 (10:13→10:17)
[2017-10-26] MEDS: ALPRAZolam 0.25 MG TAB PO SCH ×2 (10:13→21:23)
[2017-10-26] MEDS: PANTOPRAZOLE 40 MG TAB PO SCH (10:14)
[2017-10-26] MEDS: METOPROLOL SUCCINATE XL 50 MG TAB PO SCH ×2 (10:15→21:24)
[2017-10-26] MEDS: AZITHROMYCIN 500MG/ 250ML 250 ML IV SCH (10:16)
[2017-10-26 12:35] VITALS: BP 146/68
[2017-10-26 17:06] VITALS: BP 147/59
[2017-10-26] MEDS: FUROSEMIDE 40 MG/4 ML VIAL IV SCH (17:37)
[2017-10-26 22:00] VITALS: BP 161/70
[2017-10-27 05:00] VITALS: BP 121/51
[2017-10-27] MEDS: FUROSEMIDE 40 MG/4 ML VIAL IV SCH (06:11)
[2017-10-27] MEDS: ACCU-CHEK COMFORT CURVE STRIP VI SCH ×2 (06:12→11:30)
[2017-10-27] MEDS: InsuLIN REG 1unit/0.01ml Soln (100units/ml) SC SCH ×2 (06:12→11:30)
[2017-10-27 07:30] VITALS: BP 121/51
[2017-10-27] MEDS: IPRATROPIUM BROM 0.5 MG/2.5ML INH SOL NEB SCH ×2 (07:55→13:28)
[2017-10-27] MEDS: ALBUTEROL SULF 2.5 MG/0.5ML(0.5%) NEB SOLN NEB SCH ×2 (07:55→13:29)
[2017-10-27 08:28] VITALS: BP 135/72
[2017-10-27 09:21] LABS: Basophils # (auto) 0.1 uL; Basophils % (auto) 1.1 % (0.0-2.0); Eosinophils # (auto) 0.2 uL; Eosinophils % (auto) 1.9 % (0.0-7.0); Hematocrit 38.4 % (36.0-46.0); Hemoglobin 12.3 g/dL (12.2-16.2); Lymphocytes # (auto) 1.5 uL; Lymphocytes % (auto) 17.2 % (10.0-50.0); Mean Corpuscular Hemoglobin 29.5 pg (28.0-32.0); Mean Corpuscular Hgb Conc. 31.9 g/dL (32.0-36.0); Mean Corpuscular Volume 92.4 fL (80.0-100.0); Monocytes # (auto) 0.7 uL; Monocytes % (auto) 7.3 % (0.0-12.0); Neutrophils # (auto) 6.5 uL; Neutrophils % (auto) 72.5 % (37.0-80.0); Platelet Count (auto) 183 10^3/uL (140-450); Red Blood Cells 4.15 10^6/uL (4.0-5.20); Red Cell Distribution Width 14.8 % (11.8-14.3); White Blood Cell 8.9 10^3/uL (4.4-10.8)
[2017-10-27] MEDS: amLODIPine BESYLATE 5 MG TAB PO SCH (09:37)
[2017-10-27] MEDS: PANTOPRAZOLE 40 MG TAB PO SCH (09:37)
[2017-10-27] MEDS: ALPRAZolam 0.25 MG TAB PO SCH (09:40)
[2017-10-27] MEDS: METOPROLOL SUCCINATE XL 50 MG TAB PO SCH (09:40)
[2017-10-27 09:51] LABS: Albumin 3.3 g/dL (3.4-5.0); BUN/Creatinine Ratio 22.8; Bilirubin, Total 0.4 mg/dL (0.2-1.0); Magnesium 1.8 mg/dL (1.6-2.6); Phosphorus 2.8 mg/dL (2.5-4.90); Potassium 4.1 mmol/L (3.5-5.1); Total Protein 7.6 g/dL (6.4-8.2)
[2017-10-27] MEDS ORDERED: AZITHROMYCIN 250 MG TAB PO SCH (10:00)
[2017-10-27 12:53] VITALS: BP 149/81
[2017-10-27] MEDS: cefTRIAXone 1GM/10ml IVPUSH 10 ML IV ONE (14:30)
[2017-10-27] MEDS ORDERED: FURO40TA4 PO (16:14)
[2017-10-27] MEDS ORDERED: SACC1CAP3 PO (16:14)
[2017-10-27] MEDS ORDERED: NITR-52 PO (16:14)
[2017-10-27] MEDS ORDERED: PRED1PAK10 PO (16:14)
[2017-10-27 16:56] VITALS: BP 123/65
[2017-10-27 17:44] VITALS: BP 135/72
[2017-10-28] MEDS ORDERED: cefTRIAXone 1GM/10ml IVPUSH 10 ML IV SCH (09:00)
== END 2017-10-27 19:00 | disposition home or self-care (01) | DRG 133 ==
LOC: ER 01:44 → EDBD 01:44 → TELE 01:45 → TELE-CENTR 16:21
PROVIDERS: ADMIT Internal Medicine; ATTEND Internal Medicine
DX: J96.20 Acute and chronic respiratory failure, unspecified whether with hypoxia or hypercapnia (principal); I50.43 Acute on chronic combined systolic (congestive) and diastolic (congestive) heart failure; D68.59 Other primary thrombophilia; Z99.81 Dependence on supplemental oxygen; J44.0 Chronic obstructive pulmonary disease with (acute) lower respiratory infection; Z68.43 Body mass index [BMI] 50.0-59.9, adult; I11.0 Hypertensive heart disease with heart failure; J96.10 Chronic respiratory failure, unspecified whether with hypoxia or hypercapnia; J20.9 Acute bronchitis, unspecified; N39.0 Urinary tract infection, site not specified; J44.1 Chronic obstructive pulmonary disease with (acute) exacerbation; E11.9 Type 2 diabetes mellitus without complications; B96.20 Unspecified Escherichia coli [E. coli] as the cause of diseases classified elsewhere; E66.01 Morbid (severe) obesity due to excess calories; J98.11 Atelectasis; G47.30 Sleep apnea, unspecified; E78.5 Hyperlipidemia, unspecified; D63.8 Anemia in other chronic diseases classified elsewhere; Z88.1 Allergy status to other antibiotic agents; Z88.8 Allergy status to other drugs, medicaments and biological substances; Z82.49 Family history of ischemic heart disease and other diseases of the circulatory system; Z83.3 Family history of diabetes mellitus; Z86.73 Personal history of transient ischemic attack (TIA), and cerebral infarction without residual deficits; Z90.710 Acquired absence of both cervix and uterus; Z98.51 Tubal ligation status
CPT/HCPCS: 36415; 71010; 80053; 80061; 81001; 82962; 83036; 83735; 83880; 84100; 84443; 84484; 85025; 87040; 87086; 87088; 87186; 87400; 93005; 93306; 94640; 96365; 96368; 96375; J1815; J3490

== ENCOUNTER 2017-11-23 20:50 | Inpatient (IN) | payer MEDICAID ==
[~2017-11-23] VITALS: Ht 165.1 cm; Wt 141.3 kg
[2017-11-23] MEDS: IPRATROPIUM BROM 0.5 MG/2.5ML INH SOL NEB ONE (00:50)
[2017-11-23] MEDS: ALBUTEROL SULF 2.5 MG/0.5ML(0.5%) NEB SOLN NEB ONE (00:50)
[~2017-11-23 20:50] MED LIST changes: +FURO40TA4 PO; +NITR-52 PO; +PRED1PAK10 PO; +SACC1CAP3 PO
[2017-11-23 22:36] LABS: Basophils # (auto) 0.1 uL; Basophils % (auto) 1.3 % (0.0-2.0); Eosinophils # (auto) 0.2 uL; Eosinophils % (auto) 2.6 % (0.0-7.0); Hematocrit 37.4 % (36.0-46.0); Hemoglobin 12.1 g/dL (12.2-16.2); Lymphocytes # (auto) 1.3 uL; Lymphocytes % (auto) 17.2 % (10.0-50.0); Mean Corpuscular Hemoglobin 29.7 pg (28.0-32.0); Mean Corpuscular Hgb Conc. 32.4 g/dL (32.0-36.0); Mean Corpuscular Volume 91.9 fL (80.0-100.0); Monocytes # (auto) 0.7 uL; Monocytes % (auto) 9.7 % (0.0-12.0); Neutrophils # (auto) 5.2 uL; Neutrophils % (auto) 69.2 % (37.0-80.0); Platelet Count (auto) 173 10^3/uL (140-450); Red Blood Cells 4.07 10^6/uL (4.0-5.20); Red Cell Distribution Width 15.2 % (11.8-14.3); White Blood Cell 7.6 10^3/uL (4.4-10.8)
[2017-11-23 22:52] LABS: INR 0.89 (0.9-1.15); Partial Thromboplastin Time 27.3 sec (22.64-33.71); Prothrombin Time 9.7 sec (9.37-12.3)
[2017-11-23 22:55] LABS: Urine Bacteria MOD /hpf (None Seen); Urine Blood Negative /uL (Negative); Urine Mucus FEW (None Seen); Urine Specific Gravity 1.015 (1.001-1.035); Urine WBC <1 /hpf (0 - 5)
[2017-11-23 23:01] LABS: Albumin 3.4 g/dL (3.4-5.0); BUN/Creatinine Ratio 29.6; Bilirubin, Total 0.3 mg/dL (0.2-1.0); Calcium 9.3 mg/dL (8.5-10.1); Magnesium 2.4 mg/dL (1.6-2.6); Potassium 4.2 mmol/L (3.5-5.1); Total Protein 8.1 g/dL (6.4-8.2)
[2017-11-23] MEDS ORDERED: FUROSEMIDE 20 MG/2 ML VIAL IV ONE (23:30)
[2017-11-24] MEDS: IPRATROPIUM BROM 0.5 MG/2.5ML INH SOL NEB ONE (00:50)
[2017-11-24] MEDS: ALBUTEROL SULF 2.5 MG/0.5ML(0.5%) NEB SOLN NEB ONE (00:50)
[2017-11-24] MEDS ORDERED: FUROSEMIDE 20 MG/2 ML VIAL IV ONE (01:30)
[2017-11-24] MEDS ORDERED: HYDROcodone-ACET 5/325MG TAB PO PRN (06:15)
[2017-11-24] MEDS ORDERED: DEXTROSE (50%) 50ML SYRG IV PRN (06:15)
[2017-11-24] MEDS ORDERED: ONDANSETRON HCL 4 MG/2 ML VIAL IV PRN (06:15)
[2017-11-24] MEDS ORDERED: MORPHINE SULF INJ 2 MG/ML SYRINGE 1ML IV PRN (06:15)
[2017-11-24] MEDS ORDERED: ALBUTEROL SULF 2.5 MG/0.5ML(0.5%) NEB SOLN NEB ONE (06:15)
[2017-11-24] MEDS ORDERED: NITROGLYCERIN 0.4 MG SL TAB SL PRN (06:15)
[2017-11-24] MEDS ORDERED: IPRATROPIUM BROM 0.5 MG/2.5ML INH SOL NEB ONE (06:15)
[2017-11-24] MEDS ORDERED: TEMAZEPAM 15 MG CAP PO PRN (06:15)
[2017-11-24 08:21] VITALS: BP 139/89
[2017-11-24] MEDS: FAMOTIDINE 20 MG TAB PO SCH ×2 (10:00→22:00)
[2017-11-24] MEDS ORDERED: AZITHROMYCIN 500MG/ 250ML 250 ML IV SCH (10:00)
[2017-11-24] MEDS: ENOXAPARIN SOD 40 MG/0.4 ML SYRINGE SC SCH (10:00)
[2017-11-24] MEDS ORDERED: predniSONE 5 MG TAB PO SCH ×2 (10:00)
[2017-11-24] MEDS: amLODIPine BESYLATE 5 MG TAB PO SCH ×2 (10:00→22:00)
[2017-11-24] MEDS ORDERED: methylPREDNISolone SOD SUCC 125 MG/2 ML VL IV SCH (10:00)
[2017-11-24] MEDS: ALBUTEROL SULF 2.5 MG/0.5ML(0.5%) NEB SOLN NEB SCH ×4 (10:47→22:04)
[2017-11-24] MEDS: IPRATROPIUM BROM 0.5 MG/2.5ML INH SOL NEB PRN ×4 (10:47→22:04)
[2017-11-24] MEDS ORDERED: FUROSEMIDE 20 MG/2 ML VIAL ONE (11:23)
[2017-11-24] MEDS: METOPROLOL TARTRATE 50 MG TAB PO SCH ×3 (11:41→22:00)
[2017-11-24 13:46] VITALS: BP 149/84
[2017-11-24 17:04] VITALS: BP 138/92
[2017-11-24] MEDS ORDERED: FUROSEMIDE 40 MG TAB PO SCH (18:00)
[2017-11-24 18:44] VITALS: BP 149/84
[2017-11-24] MEDS: InsuLIN REG 1unit/0.01ml Soln (100units/ml) SC SCH ×2 (19:00→19:01)
[2017-11-24] MEDS: ACCU-CHEK COMFORT CURVE STRIP VI SCH ×2 (19:00→19:01)
[2017-11-24] MEDS: FUROSEMIDE 20 MG TAB PO SCH (19:01)
[2017-11-24] MEDS: POTASSIUM CHL 20 Meq TABLET PO SCH (22:16)
[2017-11-24 22:51] VITALS: BP 139/80
[2017-11-25] MEDS: ACCU-CHEK COMFORT CURVE STRIP VI SCH ×4 (00:10→18:47)
[2017-11-25] MEDS: InsuLIN REG 1unit/0.01ml Soln (100units/ml) SC SCH ×4 (00:10→18:46)
[2017-11-25] MEDS: ALBUTEROL SULF 2.5 MG/0.5ML(0.5%) NEB SOLN NEB SCH ×5 (02:10→19:11)
[2017-11-25] MEDS: IPRATROPIUM BROM 0.5 MG/2.5ML INH SOL NEB PRN ×5 (02:10→19:11)
[2017-11-25] MEDS: FUROSEMIDE 20 MG TAB PO SCH ×2 (05:37→18:47)
[2017-11-25 06:00] VITALS: BP 132/68
[2017-11-25 06:40] LABS: Basophils # (auto) 0 uL; Basophils % (auto) 0.9 % (0.0-2.0); Eosinophils # (auto) 0.1 uL; Eosinophils % (auto) 2.4 % (0.0-7.0); Hematocrit 35.9 % (36.0-46.0); Hemoglobin 11.7 g/dL (12.2-16.2); Lymphocytes % (auto) 18.1 % (10.0-50.0); Mean Corpuscular Hemoglobin 29.7 pg (28.0-32.0); Mean Corpuscular Hgb Conc. 32.7 g/dL (32.0-36.0); Mean Corpuscular Volume 90.9 fL (80.0-100.0); Monocytes # (auto) 0.6 uL; Monocytes % (auto) 11.2 % (0.0-12.0); Neutrophils # (auto) 3.8 uL; Neutrophils % (auto) 67.4 % (37.0-80.0); Nucleated Red Blood Cells % 0.2 %; Platelet Count (auto) 161 10^3/uL (140-450); Red Blood Cells 3.95 10^6/uL (4.0-5.20); Red Cell Distribution Width 15.3 % (11.8-14.3); White Blood Cell 5.6 10^3/uL (4.4-10.8)
[2017-11-25 07:05] LABS: Albumin 3.3 g/dL (3.4-5.0); BUN/Creatinine Ratio 26.1; Bilirubin, Total 0.5 mg/dL (0.2-1.0); Calcium 8.8 mg/dL (8.5-10.1); Potassium 3.8 mmol/L (3.5-5.1); Total Protein 7.9 g/dL (6.4-8.2)
[2017-11-25 09:00] VITALS: BP 119/76
[2017-11-25] MEDS: ENOXAPARIN SOD 40 MG/0.4 ML SYRINGE SC SCH (10:00)
[2017-11-25] MEDS: amLODIPine BESYLATE 5 MG TAB PO SCH ×2 (10:00→21:56)
[2017-11-25] MEDS: METOPROLOL TARTRATE 50 MG TAB PO SCH ×2 (10:00→21:28)
[2017-11-25] MEDS: FAMOTIDINE 20 MG TAB PO SCH ×2 (10:00→21:56)
[2017-11-25] MEDS: BUDESONIDE (INHALATION) 0.5 MG/2 ML NEB NEB SCH ×2 (10:45→19:11)
[2017-11-25] MEDS ORDERED: methylPREDNISolone SOD SUCC 125 MG/2 ML VL IV SCH (12:00)
[2017-11-25] MEDS: POTASSIUM CHL 20 Meq TABLET PO SCH ×2 (12:22→21:29)
[2017-11-25] MEDS: AZITHROMYCIN 250 MG TAB PO SCH (12:24)
[2017-11-25 13:00] VITALS: BP 149/82
[2017-11-25 17:00] VITALS: BP 151/73
[2017-11-25 22:00] VITALS: BP 154/74
[2017-11-25] MEDS ORDERED: DILTIAZEM HCL 25 MG/5 ML VIAL IV ONE (22:15)
[2017-11-26] MEDS: InsuLIN REG 1unit/0.01ml Soln (100units/ml) SC SCH ×4 (00:26→18:00)
[2017-11-26] MEDS: ACCU-CHEK COMFORT CURVE STRIP VI SCH ×4 (00:26→18:09)
[2017-11-26 05:00] VITALS: BP 112/72
[2017-11-26] MEDS ORDERED: FUROSEMIDE 40 MG/4 ML VIAL IV ONE (06:00)
[2017-11-26] MEDS: FUROSEMIDE 20 MG TAB PO SCH ×2 (06:19→18:19)
[2017-11-26] MEDS: IPRATROPIUM BROM 0.5 MG/2.5ML INH SOL NEB PRN ×5 (06:43→22:33)
[2017-11-26] MEDS: ALBUTEROL SULF 2.5 MG/0.5ML(0.5%) NEB SOLN NEB SCH ×3 (06:43→19:08)
[2017-11-26 06:54] LABS: INR 0.93 (0.9-1.15); Partial Thromboplastin Time 28.2 sec (22.64-33.71); Prothrombin Time 10.1 sec (9.37-12.3)
[2017-11-26 07:04] LABS: Albumin 3.1 g/dL (3.4-5.0); Bilirubin, Total 0.8 mg/dL (0.2-1.0); Potassium 4.1 mmol/L (3.5-5.1); Total Protein 7.7 g/dL (6.4-8.2)
[2017-11-26 08:00] VITALS: BP 127/82
[2017-11-26 09:00] VITALS: BP 127/82
[2017-11-26] MEDS ORDERED: DILTIAZEM HCL 25 MG/5 ML VIAL IV ONE ×4 (09:15→10:00)
[2017-11-26] MEDS: amLODIPine BESYLATE 5 MG TAB PO SCH ×2 (10:00→21:31)
[2017-11-26] MEDS: FAMOTIDINE 20 MG TAB PO SCH ×2 (10:00→21:31)
[2017-11-26] MEDS: ENOXAPARIN SOD 40 MG/0.4 ML SYRINGE SC SCH (10:00)
[2017-11-26] MEDS: METOPROLOL TARTRATE 50 MG TAB PO SCH (10:00)
[2017-11-26] MEDS: BUDESONIDE (INHALATION) 0.5 MG/2 ML NEB NEB SCH ×2 (10:00→19:08)
[2017-11-26] MEDS ORDERED: DILTIAZEM 125mg/125ml BAG KIT 125 ML IV SCH ×2 (11:00→13:00)
[2017-11-26] MEDS: AZITHROMYCIN 250 MG TAB PO SCH (11:48)
[2017-11-26] MEDS: POTASSIUM CHL 20 Meq TABLET PO SCH ×2 (11:48→21:19)
[2017-11-26 15:50] VITALS: BP 114/82
[2017-11-26] MEDS: ACETAMINOPHEN 325 MG TAB PO PRN (15:54)
[2017-11-26] MEDS ORDERED: WARFARIN SODIUM 2.5 MG TAB PO ONE (17:00)
[2017-11-26] MEDS ORDERED: SOTALOL HCL 80 MG TAB PO ONE (17:15)
[2017-11-26] MEDS ORDERED: FUROSEMIDE 20 MG TAB PO ONE (18:30)
[2017-11-26] MEDS: ALPRAZolam 0.25 MG TAB PO PRN (19:33)
[2017-11-26 19:50] VITALS: BP 118/89
[2017-11-26] MEDS: AMIODARONE HCL 200 MG TAB PO SCH (21:20)
[2017-11-26] MEDS ORDERED: SOTALOL HCL 80 MG TAB PO SCH (22:00)
[2017-11-27] VITALS: BP 101/61
[2017-11-27] MEDS: ACCU-CHEK COMFORT CURVE STRIP VI SCH ×5 (00:01→23:43)
[2017-11-27] MEDS: InsuLIN REG 1unit/0.01ml Soln (100units/ml) SC SCH ×5 (00:10→23:43)
[2017-11-27] MEDS: ACETAMINOPHEN 325 MG TAB PO PRN (01:20)
[2017-11-27 05:49] LABS: INR 0.93 (0.9-1.15); Partial Thromboplastin Time 25.7 sec (22.64-33.71); Prothrombin Time 10.1 sec (9.37-12.3)
[2017-11-27 05:53] LABS: BUN/Creatinine Ratio 32.4; Bilirubin, Total 0.4 mg/dL (0.2-1.0); Potassium 4.2 mmol/L (3.5-5.1); Total Protein 7.2 g/dL (6.4-8.2)
[2017-11-27] MEDS: ALBUTEROL SULF 2.5 MG/0.5ML(0.5%) NEB SOLN NEB SCH ×3 (06:00→19:16)
[2017-11-27] MEDS: BUDESONIDE (INHALATION) 0.5 MG/2 ML NEB NEB SCH ×2 (06:03→19:16)
[2017-11-27] MEDS: IPRATROPIUM BROM 0.5 MG/2.5ML INH SOL NEB PRN ×3 (06:03→22:26)
[2017-11-27] MEDS: AMIODARONE HCL 200 MG TAB PO SCH ×3 (06:20→22:09)
[2017-11-27] MEDS: FUROSEMIDE 20 MG TAB PO SCH ×2 (06:21→18:30)
[2017-11-27 08:00] VITALS: BP 148/114
[2017-11-27 09:06] VITALS: BP 118/89
[2017-11-27] MEDS: FAMOTIDINE 20 MG TAB PO SCH ×2 (10:00→22:00)
[2017-11-27] MEDS: amLODIPine BESYLATE 5 MG TAB PO SCH ×2 (10:00→22:00)
[2017-11-27] MEDS: ENOXAPARIN SOD 40 MG/0.4 ML SYRINGE SC SCH (10:00)
[2017-11-27] MEDS: AZITHROMYCIN 250 MG TAB PO SCH (10:19)
[2017-11-27] MEDS: POTASSIUM CHL 20 Meq TABLET PO SCH ×2 (10:19→22:09)
[2017-11-27] MEDS: ALPRAZolam 0.25 MG TAB PO PRN ×2 (10:24→22:09)
[2017-11-27 12:00] VITALS: BP 133/77
[2017-11-27] MEDS ORDERED: SODIUM CHLORIDE 0.9% 500 ML IV ONE (15:30)
[2017-11-27 16:00] VITALS: BP 132/85
[2017-11-27] MEDS ORDERED: WARFARIN SODIUM 2.5 MG TAB PO ONE (17:00)
[2017-11-27 20:00] VITALS: BP 128/91
[2017-11-28] VITALS: BP 115/75
[2017-11-28] MEDS: ACETAMINOPHEN 325 MG TAB PO PRN (01:05)
[2017-11-28 03:49] VITALS: BP 140/96
[2017-11-28 05:49] LABS: INR 0.98 (0.9-1.15); Partial Thromboplastin Time 26.6 sec (22.64-33.71); Prothrombin Time 10.7 sec (9.37-12.3)
[2017-11-28] MEDS: AMIODARONE HCL 200 MG TAB PO SCH ×2 (06:11→14:59)
[2017-11-28] MEDS: InsuLIN REG 1unit/0.01ml Soln (100units/ml) SC SCH ×4 (06:12→23:58)
[2017-11-28] MEDS: ACCU-CHEK COMFORT CURVE STRIP VI SCH ×4 (06:12→23:57)
[2017-11-28] MEDS: FUROSEMIDE 20 MG TAB PO SCH (06:17)
[2017-11-28] MEDS: BUDESONIDE (INHALATION) 0.5 MG/2 ML NEB NEB SCH ×2 (06:47→19:01)
[2017-11-28] MEDS: ALBUTEROL SULF 2.5 MG/0.5ML(0.5%) NEB SOLN NEB SCH (06:47)
[2017-11-28 08:00] VITALS: BP 127/9
[2017-11-28] MEDS: amLODIPine BESYLATE 5 MG TAB PO SCH ×2 (10:00→20:45)
[2017-11-28] MEDS: ENOXAPARIN SOD 40 MG/0.4 ML SYRINGE SC SCH (10:00)
[2017-11-28] MEDS: FAMOTIDINE 20 MG TAB PO SCH ×2 (10:00→20:44)
[2017-11-28] MEDS: AZITHROMYCIN 250 MG TAB PO SCH (10:43)
[2017-11-28] MEDS: POTASSIUM CHL 20 Meq TABLET PO SCH ×2 (10:43→21:53)
[2017-11-28] MEDS: ALPRAZolam 0.25 MG TAB PO PRN ×2 (10:44→22:08)
[2017-11-28] MEDS: IPRATROPIUM BROM 0.5 MG/2.5ML INH SOL NEB PRN ×4 (10:52→22:27)
[2017-11-28 12:00] VITALS: BP 136/94
[2017-11-28] MEDS ORDERED: METOPROLOL TARTRATE 50 MG TAB PO SCH (12:45)
[2017-11-28 16:00] VITALS: BP 126/78
[2017-11-28] MEDS: RIVAROXABAN 20 MG TAB PO SCH (18:11)
[2017-11-28] MEDS: FUROSEMIDE 40 MG/4 ML VIAL IV SCH (18:13)
[2017-11-28 20:00] VITALS: BP 110/67
[2017-11-28] MEDS: SOTALOL HCL 80 MG TAB PO SCH (21:53)
[2017-11-28] MEDS: LEVALBUTEROL HCL 1.25 MG/3 ML NEB IN SCH ×2 (22:28→22:30)
[2017-11-29] VITALS: BP 122/77
[2017-11-29] MEDS: IPRATROPIUM BROM 0.5 MG/2.5ML INH SOL NEB PRN ×4 (03:45→22:30)
[2017-11-29 04:01] VITALS: BP 114/81
[2017-11-29] MEDS: InsuLIN REG 1unit/0.01ml Soln (100units/ml) SC SCH ×3 (05:32→18:26)
[2017-11-29] MEDS: ACCU-CHEK COMFORT CURVE STRIP VI SCH ×3 (05:32→18:26)
[2017-11-29] MEDS: FUROSEMIDE 40 MG/4 ML VIAL IV SCH ×2 (05:32→18:26)
[2017-11-29] MEDS: LEVALBUTEROL HCL 1.25 MG/3 ML NEB IN SCH ×3 (07:22→22:31)
[2017-11-29] MEDS: BUDESONIDE (INHALATION) 0.5 MG/2 ML NEB NEB SCH ×2 (07:22→18:38)
[2017-11-29 07:26] LABS: BUN/Creatinine Ratio 27.5; Calcium 9.7 mg/dL (8.5-10.1)
[2017-11-29 08:00] VITALS: BP 105/79
[2017-11-29] MEDS: amLODIPine BESYLATE 5 MG TAB PO SCH ×2 (09:36→22:00)
[2017-11-29] MEDS: FAMOTIDINE 20 MG TAB PO SCH ×2 (09:37→22:00)
[2017-11-29] MEDS: SOTALOL HCL 80 MG TAB PO SCH ×2 (09:43→20:15)
[2017-11-29] MEDS: POTASSIUM CHL 20 Meq TABLET PO SCH ×2 (09:43→22:26)
[2017-11-29 12:18] VITALS: BP 116/66
[2017-11-29] MEDS: ALPRAZolam 0.5 MG TAB PO PRN (14:33)
[2017-11-29 16:00] VITALS: BP 108/70
[2017-11-29] MEDS: RIVAROXABAN 20 MG TAB PO SCH (18:24)
[2017-11-29 20:07] VITALS: BP 108/78
[2017-11-29] MEDS ORDERED: VERAPAMIL HCL 40 MG TAB PO SCH (22:00)
[2017-11-29] MEDS: VERAPAMIL HCL 40 MG TAB PO SCH (23:22)
[2017-11-30] VITALS (9 sets, daily range): BP systolic 108–154; BP diastolic 69–84
[2017-11-30] MEDS: ALPRAZolam 0.5 MG TAB PO PRN (00:09)
[2017-11-30] MEDS: IPRATROPIUM BROM 0.5 MG/2.5ML INH SOL NEB PRN ×3 (02:03→19:13)
[2017-11-30 05:29] LABS: Basophils # (auto) 0.1 uL; Basophils % (auto) 0.9 % (0.0-2.0); Eosinophils # (auto) 0.2 uL; Eosinophils % (auto) 2.5 % (0.0-7.0); Hematocrit 39.5 % (36.0-46.0); Hemoglobin 12.7 g/dL (12.2-16.2); Lymphocytes # (auto) 1.9 uL; Lymphocytes % (auto) 23.3 % (10.0-50.0); Mean Corpuscular Hemoglobin 29.3 pg (28.0-32.0); Mean Corpuscular Hgb Conc. 32.3 g/dL (32.0-36.0); Mean Corpuscular Volume 90.8 fL (80.0-100.0); Monocytes # (auto) 0.7 uL; Neutrophils # (auto) 5.2 uL; Neutrophils % (auto) 64.3 % (37.0-80.0); Nucleated Red Blood Cells % 0.1 %; Platelet Count (auto) 178 10^3/uL (140-450); Red Blood Cells 4.35 10^6/uL (4.0-5.20); Red Cell Distribution Width 15.1 % (11.8-14.3); White Blood Cell 8.2 10^3/uL (4.4-10.8)
[2017-11-30 05:47] LABS: BUN/Creatinine Ratio 32.9; Calcium 9.2 mg/dL (8.5-10.1); Potassium 4.1 mmol/L (3.5-5.1)
[2017-11-30] MEDS: ACCU-CHEK COMFORT CURVE STRIP VI SCH ×4 (06:00→17:59)
[2017-11-30] MEDS: FUROSEMIDE 40 MG/4 ML VIAL IV SCH ×2 (06:00→17:59)
[2017-11-30] MEDS: InsuLIN REG 1unit/0.01ml Soln (100units/ml) SC SCH ×4 (06:00→18:00)
[2017-11-30] MEDS: BUDESONIDE (INHALATION) 0.5 MG/2 ML NEB NEB SCH ×2 (06:13→19:13)
[2017-11-30] MEDS: LEVALBUTEROL HCL 1.25 MG/3 ML NEB IN SCH ×3 (06:13→22:53)
[2017-11-30] MEDS ORDERED: VERAPAMIL HCL 40 MG TAB ONE (09:33)
[2017-11-30] MEDS: POTASSIUM CHL 20 Meq TABLET PO SCH ×2 (10:00→22:29)
[2017-11-30] MEDS: amLODIPine BESYLATE 5 MG TAB PO SCH ×2 (10:00→22:29)
[2017-11-30] MEDS: FAMOTIDINE 20 MG TAB PO SCH ×3 (10:00→22:29)
[2017-11-30] MEDS: VERAPAMIL HCL 40 MG TAB PO SCH ×3 (10:00→22:29)
[2017-11-30] MEDS ORDERED: DIGOXIN 0.25 MG TAB ONE (10:11)
[2017-11-30] MEDS ORDERED: MIDAZOLAM HCL 1MG/1ML-2 ML VIAL ONE (10:14)
[2017-11-30] MEDS ORDERED: DIGOXIN 0.25 MG TAB PO PRN (10:15)
[2017-11-30] MEDS ORDERED: MIDAZOLAM HCL 5 MG/ML-1ML VIAL IV ONE (10:15)
[2017-11-30] MEDS: RIVAROXABAN 20 MG TAB PO SCH (17:59)
[2017-12-01 05:00] VITALS: BP 143/74
[2017-12-01] MEDS: InsuLIN REG 1unit/0.01ml Soln (100units/ml) SC SCH ×3 (06:00→14:50)
[2017-12-01] MEDS: ACCU-CHEK COMFORT CURVE STRIP VI SCH ×3 (06:00→14:52)
[2017-12-01] MEDS: IPRATROPIUM BROM 0.5 MG/2.5ML INH SOL NEB PRN ×2 (06:20→10:05)
[2017-12-01] MEDS: LEVALBUTEROL HCL 1.25 MG/3 ML NEB IN SCH (06:20)
[2017-12-01] MEDS: FUROSEMIDE 40 MG/4 ML VIAL IV SCH (06:28)
[2017-12-01 06:59] LABS: Basophils # (auto) 0.1 uL; Basophils % (auto) 0.8 % (0.0-2.0); Eosinophils # (auto) 0.2 uL; Eosinophils % (auto) 2.6 % (0.0-7.0); Hematocrit 37.3 % (36.0-46.0); Hemoglobin 12.1 g/dL (12.2-16.2); Lymphocytes # (auto) 1.9 uL; Lymphocytes % (auto) 22.9 % (10.0-50.0); Mean Corpuscular Hemoglobin 29.6 pg (28.0-32.0); Mean Corpuscular Hgb Conc. 32.5 g/dL (32.0-36.0); Mean Corpuscular Volume 91.1 fL (80.0-100.0); Monocytes # (auto) 0.6 uL; Monocytes % (auto) 7.6 % (0.0-12.0); Neutrophils # (auto) 5.5 uL; Neutrophils % (auto) 66.1 % (37.0-80.0); Nucleated Red Blood Cells % 0.1 %; Platelet Count (auto) 195 10^3/uL (140-450); Red Cell Distribution Width 15.2 % (11.8-14.3); White Blood Cell 8.3 10^3/uL (4.4-10.8)
[2017-12-01 07:19] LABS: Albumin 3.3 g/dL (3.4-5.0); BUN/Creatinine Ratio 37.1; Bilirubin, Total 0.3 mg/dL (0.2-1.0); Calcium 9.2 mg/dL (8.5-10.1); Potassium 4.3 mmol/L (3.5-5.1); Total Protein 7.7 g/dL (6.4-8.2)
[2017-12-01 09:00] VITALS: BP 106/61
[2017-12-01] MEDS ORDERED: MORPHINE SULF INJ 2 MG/ML SYRINGE 1ML IV PRN (09:00)
[2017-12-01] MEDS ORDERED: TEMAZEPAM 15 MG CAP PO PRN (09:00)
[2017-12-01] MEDS ORDERED: HYDROcodone-ACET 5/325MG TAB PO PRN (09:00)
[2017-12-01] MEDS: FAMOTIDINE 20 MG TAB PO SCH (10:00)
[2017-12-01] MEDS: BUDESONIDE (INHALATION) 0.5 MG/2 ML NEB NEB SCH (10:05)
[2017-12-01] MEDS ORDERED: RIV20T PO (10:13)
[2017-12-01] MEDS ORDERED: METOPROLOL TARTRATE 50 MG TAB PO ONE (10:15)
[2017-12-01] MEDS: POTASSIUM CHL 20 Meq TABLET PO SCH (14:47)
[2017-12-01] MEDS ORDERED: METOPROLOL TARTRATE 50 MG TAB PO SCH (22:00)
== END 2017-12-01 15:56 | disposition home or self-care (01) | DRG 133 ==
LOC: ER 20:50 → EDBD 20:50 → TELE 20:51 → TELE-CENTR 11-24 08:30 → DOU IN ICU 11-26 12:20 → TELE-WESTW 11-30 17:17
PROVIDERS: ADMIT Nurse Practitioner; ATTEND Internal Medicine
PROC: 5A2204Z Restoration of Cardiac Rhythm, Single (ICD-10-PCS; principal; 2017-11-30)
DX: J96.20 Acute and chronic respiratory failure, unspecified whether with hypoxia or hypercapnia (principal); E87.3 Alkalosis; D68.9 Coagulation defect, unspecified; J44.0 Chronic obstructive pulmonary disease with (acute) lower respiratory infection; I11.0 Hypertensive heart disease with heart failure; I50.32 Chronic diastolic (congestive) heart failure; E44.1 Mild protein-calorie malnutrition; J20.9 Acute bronchitis, unspecified; E66.01 Morbid (severe) obesity due to excess calories; N39.0 Urinary tract infection, site not specified; F41.9 Anxiety disorder, unspecified; E78.5 Hyperlipidemia, unspecified; J44.1 Chronic obstructive pulmonary disease with (acute) exacerbation; I48.91 Unspecified atrial fibrillation; E11.9 Type 2 diabetes mellitus without complications; J45.901 Unspecified asthma with (acute) exacerbation; I48.92 Unspecified atrial flutter; R56.9 Unspecified convulsions; Z82.49 Family history of ischemic heart disease and other diseases of the circulatory system; Z83.3 Family history of diabetes mellitus; Z86.73 Personal history of transient ischemic attack (TIA), and cerebral infarction without residual deficits; Z90.710 Acquired absence of both cervix and uterus; Z99.81 Dependence on supplemental oxygen; Z88.1 Allergy status to other antibiotic agents; Z88.8 Allergy status to other drugs, medicaments and biological substances; Z98.51 Tubal ligation status; Z68.43 Body mass index [BMI] 50.0-59.9, adult
CPT/HCPCS: 36415; 36600; 71045; 80048; 80053; 81001; 82805; 82962; 83735; 83880; 84484; 85025; 85379; 85610; 85730; 87081; 93005; 93970; 94640; 96374; 96376; J1815; J2250; J7060

== ENCOUNTER 2019-02-12 17:14 | Inpatient (IN) | payer MEDICARE, MEDICAID | END 2019-02-19 16:10 | disposition home or self-care (01) | LOC: TELE-WESTW 22:30 → ER 17:14 → TELE 20:27 | DX: I11.0 Hypertensive heart disease with heart failure (principal); J96.90 Respiratory failure, unspecified, unspecified whether with hypoxia or hypercapnia; I44.2 Atrioventricular block, complete; I50.21 Acute systolic (congestive) heart failure; E11.40 Type 2 diabetes mellitus with diabetic neuropathy, unspecified; N18.3 Chronic kidney disease, stage 3 (moderate); J44.9 Chronic obstructive pulmonary disease, unspecified; I77.810 Thoracic aortic ectasia; E66.01 Morbid (severe) obesity due to excess calories ==

== ENCOUNTER 2019-10-03 02:48 | Inpatient (IN) | payer MEDICARE, MEDICAID ==
[~2019-10-03] VITALS: Ht 167.6 cm; Wt 143.5 kg
[~2019-10-03 02:48] MED LIST changes: -ALBU4TAB4 PO; -ALBUPOW26 IN; -ALPR0.254 PO; -AMLO5TAB2 PO; -METO-169 PO; -NITR-52 PO; +POTA-220 PO; -PRED1PAK10 PO; +RIV20T PO; -SACC1CAP3 PO
[2019-10-03] MEDS ORDERED: SODIUM CHLORIDE 0.9% 1,000 ML IV ONE (07:47)
[2019-10-03] MEDS ORDERED: FUROSEMIDE 40 MG/4 ML VIAL IV ONE (08:00)
[2019-10-03] MEDS ORDERED: IPRATROPIUM BROM 0.5 MG/2.5ML INH SOL NEB ONE (08:00)
[2019-10-03 09:53] VITALS: BP 172/72
[2019-10-03 10:10] LABS: Basophils # (auto) 0.1 uL; Basophils % (auto) 0.7 % (0.0-2.0); Eosinophils # (auto) 0.1 uL; Eosinophils % (auto) 1.2 % (0.0-7.0); Hematocrit 33.6 % (36.0-46.0); Hemoglobin 10.6 g/dL (12.2-16.2); Lymphocytes # (auto) 1.2 uL; Lymphocytes % (auto) 15.4 % (10.0-50.0); Mean Corpuscular Hemoglobin 28.2 pg (28.0-32.0); Mean Corpuscular Hgb Conc. 31.6 g/dL (32.0-36.0); Mean Corpuscular Volume 89.1 fL (80.0-100.0); Monocytes # (auto) 0.6 uL; Monocytes % (auto) 7.2 % (0.0-12.0); Neutrophils % (auto) 75.5 % (37.0-80.0); Nucleated Red Blood Cells % 0.1 %; Platelet Count (auto) 179 10^3/uL (140-450); Red Blood Cells 3.77 10^6/uL (4.0-5.20); Red Cell Distribution Width 16.9 % (11.8-14.3); White Blood Cell 7.9 10^3/uL (4.4-10.8)
[2019-10-03 10:13] LABS: Urine Bacteria FEW /hpf (None Seen); Urine Blood Negative /uL (Negative); Urine Specific Gravity 1.013 (1.001-1.035); Urine WBC 1 /hpf (0 - 5)
[2019-10-03 10:26] LABS: INR 1.13 (0.9-1.15); Partial Thromboplastin Time 34.1 sec (23.64-32.05)
[2019-10-03 10:27] LABS: Alanine Aminotransferase 14 U/L (13-56); Albumin 3.1 g/dL (3.4-5.0); Anion Gap 3 (5-15); Aspartate Aminotransferase 13 U/L (15-37); BUN/Creatinine Ratio 27.3; Blood Urea Nitrogen 21 mg/dL (7-18); Calcium 8.9 mg/dL (8.5-10.1); Carbon Dioxide 40 mmol/L (21-32); Chloride 99 mmol/L (98-107); GFR African American 97 mL/min; GFR Non-African American 80 mL/min; Glucose 128 mg/dL (74-106); Potassium 4.1 mmol/L (3.5-5.1); Sodium 142 mmol/L (136-145)
[2019-10-03 10:38] LABS: Alkaline Phosphatase 100 U/L (45-117); Bilirubin, Total 0.4 mg/dL (0.2-1.0); Total Protein 8.1 g/dL (6.4-8.2)
[2019-10-03] MEDS ORDERED: LEVALBUTEROL HCL 1.25 MG/3 ML NEB NEB SCH (12:00)
[2019-10-03] MEDS ORDERED: ACETAMINOPHEN 500 MG TAB PO PRN (16:00)
[2019-10-03] MEDS ORDERED: MORPHINE SULF INJ 2 MG/ML SYRINGE 1ML IV PRN (16:00)
[2019-10-03] MEDS ORDERED: traMADol HCL 50 MG TAB PO PRN (16:00)
[2019-10-03] MEDS ORDERED: OSELTAMIVIR 75 MG CAP PO ONE (16:00)
[2019-10-03] MEDS ORDERED: TEMAZEPAM 15 MG CAP PO PRN (16:00)
[2019-10-03] MEDS ORDERED: PROMETHAZINE HCL 25 MG/ML 1ML IV PRN (16:00)
[2019-10-03] MEDS ORDERED: DEXTROSE (50%) 50ML SYRG IV PRN (16:00)
[2019-10-03] MEDS ORDERED: NITROGLYCERIN 0.4 MG SL TAB SL PRN (16:00)
[2019-10-03] MEDS: DOXYCYCLINE 100MG/250ML 250 ML IV SCH (16:29)
[2019-10-03 16:34] VITALS: BP 179/67
[2019-10-03 17:00] VITALS: BP 168/82
[2019-10-03] MEDS: ACCU-CHEK COMFORT CURVE STRIP VI SCH ×2 (17:00→21:36)
[2019-10-03 17:02] LABS: Alcohol, Urine < 3.0 mg/dL (0-5); Amphetamine Screen, Urine NEGATIVE (NEGATIVE); Barbiturate Scree,Urine NEGATIVE (NEGATIVE); Benzodiazephine Screen, Urine POSITIVE (NEGATIVE); Cannabinoid Screen, Urine NEGATIVE (NEGATIVE); Cocaine Screen, Urine NEGATIVE (NEGATIVE); Opiate Scree,Urine NEGATIVE (NEGATIVE); Phencyclidine Screen, Urine NEGATIVE (NEGATIVE)
--- NOTE | 2019-10-03 17:02 | NUR ---
MS admit from ER REE BRYAN admitted to tele/MS after SBAR received. Patient oriented to HERMILA ESTRADA, RN primary RN, Tele unit, room 287, bed a, and unit policies regarding patient care and visiting hours. Patient weighed by bedscale and encouraged to call if they need something. All questions and concerns addressed, patient verbalized understanding.
[2019-10-03] MEDS ORDERED: DRON400T PO (17:50)
[2019-10-03] MEDS ORDERED: CRAN1CAP9 PO (17:50)
[2019-10-03] MEDS ORDERED: ALPR0.5T PO (17:50)
[2019-10-03] MEDS ORDERED: CHOL20007 PO (17:50)
[2019-10-03] MEDS ORDERED: MULT-927 PO (17:50)
[2019-10-03] MEDS ORDERED: MAGN400C2 PO (17:50)
[2019-10-03] MEDS ORDERED: FERR-20 PO (17:50)
[2019-10-03] MEDS ORDERED: METO25TA5 PO (17:50)
--- NOTE | 2019-10-03 17:50 | NUR ---
PATIENT BP: 168/82 HR 83. ORDERS RECEIVED FROM DR. PIPER FOR RESUMING HOME MEDS INCLUDING METOPROLOL, AND TO GIVE SAME DOSE, ONE TIME NOW.
[2019-10-03] MEDS: InsuLIN REG 1unit/0.01ml Soln (100units/ml) SC SCH ×2 (17:52→21:36)
[2019-10-03] MEDS: RIVAROXABAN 20 MG TAB PO SCH (17:53)
[2019-10-03] MEDS: FUROSEMIDE 40 MG TAB PO SCH (17:53)
--- NOTE | 2019-10-03 17:53 | NUR ---
MED REC COMPLETE: PATIENT CURRENT MEDICATION LIST FROM [facility], OBTAINED AND PLACED IN THE HARD CHART.
[2019-10-03] MEDS ORDERED: METOPROLOL TARTRATE 25 MG TAB PO ONE (18:00)
[2019-10-03] MEDS: ALBUTEROL SULF 2.5 MG/0.5ML(0.5%) NEB SOLN NEB SCH (18:03)
[2019-10-03] MEDS: IPRATROPIUM BROM 0.5 MG/2.5ML INH SOL NEB SCH (18:03)
--- NOTE | 2019-10-03 18:21 | NUR ---
RT PAGED X3 FOR PATIENT C/O SOB.
--- NOTE | 2019-10-03 19:21 | NUR ---
CARE ENDORSED TO PABLO JOHNSON.
[2019-10-03] MEDS: SODIUM CHLOR 0.9% PF (SALINE LOCK) 10ML VIAL/SYR IV SCH (21:36)
[2019-10-03] MEDS: POTASSIUM CHL 20 Meq TABLET PO SCH (21:36)
[2019-10-03] MEDS ORDERED: OSELTAMIVIR 75 MG CAP PO SCH (22:00)
[2019-10-03 22:31] VITALS: BP 128/69
[2019-10-03] MEDS: ALBUTEROL SULF 2.5 MG/0.5ML(0.5%) NEB SOLN NEB PRN (22:31)
[2019-10-04] MEDS: ALBUTEROL SULF 2.5 MG/0.5ML(0.5%) NEB SOLN NEB SCH ×5 (00:05→18:22)
[2019-10-04] MEDS: IPRATROPIUM BROM 0.5 MG/2.5ML INH SOL NEB SCH ×4 (00:05→18:21)
--- NOTE | 2019-10-04 03:11 | NUR ---
RT paged for a breathing treatment due to SOB
[2019-10-04] MEDS: ALBUTEROL SULF 2.5 MG/0.5ML(0.5%) NEB SOLN NEB PRN ×2 (03:15→15:51)
--- NOTE | 2019-10-04 03:15 | NUR ---
RT at bedside. Patient receiving breathing tx.
[2019-10-04] MEDS: DOXYCYCLINE 100MG/250ML 250 ML IV SCH ×2 (04:32→18:44)
[2019-10-04 05:26] LABS: Basophils # (auto) 0 uL; Basophils % (auto) 0.7 % (0.0-2.0); Eosinophils # (auto) 0.1 uL; Eosinophils % (auto) 1.3 % (0.0-7.0); Hematocrit 30.6 % (36.0-46.0); Hemoglobin 9.8 g/dL (12.2-16.2); Lymphocytes # (auto) 1.3 uL; Lymphocytes % (auto) 21.1 % (10.0-50.0); Mean Corpuscular Hemoglobin 28.8 pg (28.0-32.0); Mean Corpuscular Hgb Conc. 32.1 g/dL (32.0-36.0); Mean Corpuscular Volume 89.7 fL (80.0-100.0); Monocytes # (auto) 0.5 uL; Monocytes % (auto) 7.5 % (0.0-12.0); Neutrophils # (auto) 4.3 uL; Neutrophils % (auto) 69.4 % (37.0-80.0); Nucleated Red Blood Cells % 0.1 %; Platelet Count (auto) 163 10^3/uL (140-450); Red Blood Cells 3.41 10^6/uL (4.0-5.20); Red Cell Distribution Width 16.3 % (11.8-14.3); White Blood Cell 6.2 10^3/uL (4.4-10.8)
[2019-10-04 05:30] VITALS: BP 137/79
[2019-10-04 05:52] LABS: Chloride 99 mmol/L (98-107); Potassium 4.1 mmol/L (3.5-5.1); Sodium 145 mmol/L (136-145)
[2019-10-04 06:01] LABS: Alanine Aminotransferase 15 U/L (13-56); Albumin 2.8 g/dL (3.4-5.0); Alkaline Phosphatase 82 U/L (45-117); Anion Gap 5 (5-15); Aspartate Aminotransferase 13 U/L (15-37); BUN/Creatinine Ratio 26.7; Bilirubin, Total 0.4 mg/dL (0.2-1.0); Blood Urea Nitrogen 20 mg/dL (7-18); Calcium 8.5 mg/dL (8.5-10.1); GFR African American 100 mL/min; GFR Non-African American 82 mL/min; Glucose 125 mg/dL (74-106); Total Protein 6.6 g/dL (6.4-8.2)
[2019-10-04 06:12] LABS: Carbon Dioxide 41 mmol/L (21-32)
--- NOTE | 2019-10-04 06:15 | NUR ---
Lab called for Critical CO2 of 41 Will page hospitalist
--- NOTE | 2019-10-04 06:16 | NUR ---
returned call Dr. Quevedo returned call, updated on patient status and reason for call, no orders received. Continue care.
[2019-10-04] MEDS: FUROSEMIDE 40 MG TAB PO SCH (06:50)
[2019-10-04] MEDS: SODIUM CHLOR 0.9% PF (SALINE LOCK) 10ML VIAL/SYR IV SCH ×3 (06:50→21:42)
[2019-10-04] MEDS: InsuLIN REG 1unit/0.01ml Soln (100units/ml) SC SCH ×4 (06:50→21:55)
[2019-10-04] MEDS: ACCU-CHEK COMFORT CURVE STRIP VI SCH ×4 (06:51→21:43)
--- NOTE | 2019-10-04 07:36 | NUR ---
Endorsed care to day shift RN.
--- NOTE | 2019-10-04 07:40 | NUR ---
RECEIVED PT LYING IN BED AAOX4, PLEASANT AND COOPERATIVE AND VOICED NO C/O PAIN OR SOB. SHIFT ASSESSMENT DONE AND CHARTED. PLAN OF CARE, MEDS, TREATMENTS AND SAFETY DISCUSSED WITH PT AND PT VERBALIZED UNDERSTANDING. HER BED WAS IN LOWEST POSITION WITH BRAKES ON, SIDERAILS UP X2 AND CALL LIGHT WITHIN PT'S REACH. WILL CONTINUE TO MONITOR PT.
[2019-10-04 09:00] VITALS: BP 139/76
[2019-10-04] MEDS: POTASSIUM CHL 20 Meq TABLET PO SCH ×2 (09:58→21:42)
[2019-10-04] MEDS: SAXAGLIPTIN 5 MG PO SCH (09:58)
[2019-10-04] MEDS: ENALAPRIL MALEATE 2.5 MG TAB PO SCH (09:59)
[2019-10-04 13:00] VITALS: BP 116/66
--- NOTE | 2019-10-04 16:01 | NUR ---
DR. BENDER WAS IN TO SEE PT AND MD LEFT NEW ORDERS.
[2019-10-04 17:00] VITALS: BP 123/63
[2019-10-04] MEDS ORDERED: FUROSEMIDE 20 MG/2 ML VIAL IV SCH (18:15)
[2019-10-04] MEDS: RIVAROXABAN 20 MG TAB PO SCH (18:43)
--- NOTE | 2019-10-04 19:16 | NUR ---
Opening Shift Note Assumed care of patient, awake and alert. No S/S of distress. Instructed on POC and to call for assist PRN, will continue to monitor for changes Q1hr and PRN. Side rails up x2. Bed locked in lowest position. Call light within reach.
[2019-10-04] MEDS: AZITHROMYCIN 250 MG TAB PO SCH (19:27)
[2019-10-04] MEDS: DRONEDARONE HCL 400 MG TAB PO SCH (21:42)
[2019-10-04] MEDS: METOPROLOL TARTRATE 25 MG TAB PO SCH (21:42)
[2019-10-04] MEDS: ALPRAZolam 0.25 MG TAB PO SCH (21:42)
[2019-10-04 22:00] VITALS: BP 145/69
[2019-10-05] MEDS: IPRATROPIUM BROM 0.5 MG/2.5ML INH SOL NEB SCH ×4 (00:25→18:50)
[2019-10-05] MEDS: ALBUTEROL SULF 2.5 MG/0.5ML(0.5%) NEB SOLN NEB SCH ×3 (00:25→11:38)
--- NOTE | 2019-10-05 00:37 | NUR ---
ATTEMPTED TO PLACE PT ON BIPAP FOR NOC USE, PT REFUSED. PT STATES SHE IS VERY CLAUSTROPHOBIC AN IS UNABLE TO HAVE THE MASK ON HER FACE. SPOKE W/ PT ABOUT CHANGING THE MASK TO ONE OF THE OTHER MASKS, PT DECLINED. NO DISTRESS NOTED. SHE IS ON CONT BEDSIDE POX MONITORING. SHE IS AWARE TO CALL IF SHE CHANGES HER MIND.
[2019-10-05 05:00] VITALS: BP 128/61
[2019-10-05] MEDS: DOXYCYCLINE 100MG/250ML 250 ML IV SCH ×2 (05:00→15:34)
[2019-10-05] MEDS: SODIUM CHLOR 0.9% PF (SALINE LOCK) 10ML VIAL/SYR IV SCH ×3 (06:00→21:31)
[2019-10-05] MEDS: InsuLIN REG 1unit/0.01ml Soln (100units/ml) SC SCH ×4 (06:28→21:42)
[2019-10-05] MEDS: ACCU-CHEK COMFORT CURVE STRIP VI SCH ×4 (06:29→21:32)
[2019-10-05 07:05] LABS: Anion Gap 4 (5-15); BUN/Creatinine Ratio 22.4; Blood Urea Nitrogen 17 mg/dL (7-18); Calcium 8.8 mg/dL (8.5-10.1); Carbon Dioxide 37 mmol/L (21-32); Chloride 99 mmol/L (98-107); GFR African American 98 mL/min; GFR Non-African American 81 mL/min; Glucose 139 mg/dL (74-106); Potassium 4.3 mmol/L (3.5-5.1); Sodium 140 mmol/L (136-145)
[2019-10-05 07:39] LABS: Basophils # (auto) 0.1 uL; Basophils % (auto) 1.3 % (0.0-2.0); Eosinophils # (auto) 0.1 uL; Eosinophils % (auto) 1.9 % (0.0-7.0); Hematocrit 33.3 % (36.0-46.0); Hemoglobin 10.6 g/dL (12.2-16.2); Lymphocytes # (auto) 1.5 uL; Lymphocytes % (auto) 20.6 % (10.0-50.0); Mean Corpuscular Hemoglobin 28.3 pg (28.0-32.0); Mean Corpuscular Hgb Conc. 31.9 g/dL (32.0-36.0); Mean Corpuscular Volume 88.8 fL (80.0-100.0); Monocytes # (auto) 0.6 uL; Monocytes % (auto) 8.4 % (0.0-12.0); Neutrophils # (auto) 4.9 uL; Neutrophils % (auto) 67.8 % (37.0-80.0); Nucleated Red Blood Cells % 0.2 %; Platelet Count (auto) 151 10^3/uL (140-450); Red Blood Cells 3.75 10^6/uL (4.0-5.20); Red Cell Distribution Width 16.8 % (11.8-14.3); White Blood Cell 7.2 10^3/uL (4.4-10.8)
--- NOTE | 2019-10-05 07:39 | NUR ---
OPENING SHIFT NOTE Assumed care of patient alert and oriented, currently resting in bed. Patient denies pain at this time. Respirations noticeably shallow, patient currently on 4L O2 via NC as per doctors orders, and O2 sat 94%. Patient instructed on POC for the day and to call for assistance PRN, patient verbalized understanding. Bed in low position, locked, 2 side rails up, and call light within reach. Will continue to monitor Q1hr and PRN. Signed: 10/05/19 at 1534 by CAITLIN VELASQUEZ <Co-Signature Required> Co-Signed: 10/05/19 at 1534 by Aicha Paige RN
--- NOTE | 2019-10-05 07:42 | NUR ---
Endorsed care to day shift RN.
[2019-10-05 08:17] VITALS: BP 120/70
[2019-10-05] MEDS: SAXAGLIPTIN 5 MG PO SCH (10:00)
[2019-10-05] MEDS: METOPROLOL TARTRATE 25 MG TAB PO SCH ×2 (10:00→21:32)
[2019-10-05] MEDS ORDERED: FUROSEMIDE 40 MG/4 ML VIAL IV SCH (10:00)
[2019-10-05] MEDS: ENALAPRIL MALEATE 2.5 MG TAB PO SCH (10:00)
[2019-10-05] MEDS: DRONEDARONE HCL 400 MG TAB PO SCH ×2 (10:03→21:32)
[2019-10-05] MEDS: AZITHROMYCIN 250 MG TAB PO SCH (10:03)
[2019-10-05] MEDS: POTASSIUM CHL 20 Meq TABLET PO SCH ×2 (10:03→21:31)
[2019-10-05] MEDS: ALPRAZolam 0.25 MG TAB PO SCH ×2 (10:04→21:32)
[2019-10-05 12:51] VITALS: BP 153/79
--- NOTE | 2019-10-05 15:50 | NUR ---
Patient had a large bowel movement. Cleansed buttocks with a washcloth , warm water and patted patted dry. Patient tolerated well.
[2019-10-05 16:27] VITALS: BP 174/87
[2019-10-05] MEDS ORDERED: FUROSEMIDE 40 MG/4 ML VIAL IV ONE (16:30)
--- NOTE | 2019-10-05 16:53 | NUR ---
PLACED PT AT APPROXIMATELY 1435 ON BIPAP DUE TO DISTRESS FOR 20 MINS. PT WAS CHANGED AND BECAME SOB. PT SAID SHE WANTS TO GO BACK ON NC BECAUSE SHE IS FEELING BETTER. SPO2 93%, HR 88, RR 25 BS ARE DIMINISHED. WILL CONTINUE TO MONITOR PT.
[2019-10-05] MEDS: RIVAROXABAN 20 MG TAB PO SCH (17:41)
--- NOTE | 2019-10-05 18:44 | NUR ---
CLOSING SHIFT NOTE Patient currently in bed alert and oriented. Patient on 4L of O2 via NC, respirations are even and unlabored. No s/s of distress, SOB, or pain noted/reported. Patient instructed to call for assistance as needed, patient verbalized understanding. Bed in low position, locked, and call light within reach. Will endorse care to NOC nurse. Signed: 10/05/19 at 1856 by CAITLIN VELASQUEZ <Co-Signature Required> Co-Signed: 10/05/19 at 1856 by Aicha Paige RN
[2019-10-05] MEDS: LEVALBUTEROL HCL 1.25 MG/3 ML NEB NEB SCH (18:50)
--- NOTE | 2019-10-05 19:14 | NUR ---
Opening Shift Note Assumed care of patient, awake and alert. No S/S of distress/SOB or pain. Instructed on POC and to call for assist PRN, will continue to monitor for changes Q1hr and PRN. Side rails up x2. Bed locked in lowest position. Call light within reach. Family at bedside.
[2019-10-05 22:03] VITALS: BP 150/77
[2019-10-06] VITALS (7 sets, daily range): BP systolic 113–147; BP diastolic 64–73
[2019-10-06] MEDS: LEVALBUTEROL HCL 1.25 MG/3 ML NEB NEB SCH ×4 (00:51→18:58)
[2019-10-06] MEDS: IPRATROPIUM BROM 0.5 MG/2.5ML INH SOL NEB SCH ×4 (00:51→18:58)
--- NOTE | 2019-10-06 02:45 | NUR ---
Respiratory note: PT ASKED TO BE TAKEN OFF BIPAP. PLACED PT BACK ON 5 L/M NC: HR 67, RR 18, SPO2 95%. PT SHOWS NO S/S OF DISTRESS OR SOB AND TOLERATING CHANGE WELL. WILL CONTINUE TO MONITOR.
--- NOTE | 2019-10-06 04:00 | NUR ---
IV insertion IV access obtained, via clean sterile technique by inserting 24 gauge catheter on right hand after 1 attempt. IV secured properly. No trauma to site. Patient tolerated procedure well.
[2019-10-06] MEDS: DOXYCYCLINE 100MG/250ML 250 ML IV SCH ×2 (04:03→16:14)
--- NOTE | 2019-10-06 04:09 | NUR ---
IV removal IV DC'd from right forearm with sterile technique, catheter fully intact. Pressure dressing applied to site. Patient tolerated procedure well.
[2019-10-06] MEDS: InsuLIN REG 1unit/0.01ml Soln (100units/ml) SC SCH ×4 (06:30→22:13)
[2019-10-06] MEDS: SODIUM CHLOR 0.9% PF (SALINE LOCK) 10ML VIAL/SYR IV SCH ×3 (06:31→22:13)
[2019-10-06] MEDS: ACCU-CHEK COMFORT CURVE STRIP VI SCH ×4 (06:31→22:13)
--- NOTE | 2019-10-06 07:17 | NUR ---
Endorsed care to day shift RN.
--- NOTE | 2019-10-06 08:00 | NUR ---
Opening Shift Note Assumed care of patient, awake and alert X 4. Patient on 5L NC. No S/S of distress/SOB or pain. Bed is in lowest locked position, bed rails up x 2 and call light within reach. Instructed on POC and to call for assist PRN, will continue to monitor for changes Q1hr and PRN.
[2019-10-06] MEDS: ENALAPRIL MALEATE 2.5 MG TAB PO SCH (10:00)
[2019-10-06] MEDS: METOPROLOL TARTRATE 25 MG TAB PO SCH ×2 (10:00→21:59)
[2019-10-06] MEDS: SAXAGLIPTIN 5 MG PO SCH (10:00)
[2019-10-06] MEDS: POTASSIUM CHL 20 Meq TABLET PO SCH ×2 (10:11→21:58)
[2019-10-06] MEDS: AZITHROMYCIN 250 MG TAB PO SCH (10:11)
[2019-10-06] MEDS: ALPRAZolam 0.25 MG TAB PO SCH ×2 (10:11→21:59)
[2019-10-06] MEDS: DRONEDARONE HCL 400 MG TAB PO SCH ×2 (10:11→21:59)
[2019-10-06] MEDS ORDERED: NITROFURANTOIN (MONO) 100 mg CAP PO ONE (12:00)
--- NOTE | 2019-10-06 12:00 | NUR ---
Nutrition Assessment Notes please see attached link for complete assessment Est. Needs ABW 99 [id number] kcal (17-20 kcal/kgBW), 99-108 gms pro (1.0-1.1 gms/kgBW). Will continue to monitor pertinent labs and reassess nutrient need prn Addendum: 10/06/19 at [address] Amended: Links added.
--- NOTE | 2019-10-06 12:08 | NUR ---
DR BENDER AT BEDSIDE DISCUSSED POC WITH THE PATIENT.
[2019-10-06] MEDS ORDERED: diphenhdrAMINE HCL 50 MG/1 ML VL ONE (12:52)
--- NOTE | 2019-10-06 12:52 | NUR ---
PATIENT REPORTED TROUBLE BREATHING AND FELT IF HER THROAT WAS CLOSING. VITAL SIGNS 143/73 HR 70 T 97.6 92% ON 5L NC. PAGED RT TO ASSESS PATIENT. DR BENDER AT BEDSIDE TO ASSESS PATIENT. ORDERS RECEIVED FOR STAT BENADRYL. PATIENT REPORTED IMPROVED BREATHING AFTER BENADRYL AND RELIEF FROM CLOSING OF HER THROAT. PER DR BENDER, DC WILL BE HELD TO CONTINUE TO MONITOR PATIENT.
[2019-10-06] MEDS ORDERED: EPINEPHrine HCL 1 MG/1 ML AMP IM ONE (13:00)
[2019-10-06] MEDS ORDERED: diphenhdrAMINE HCL 50 MG/1 ML VL IV ONE (13:00)
[2019-10-06] MEDS: RIVAROXABAN 20 MG TAB PO SCH (17:23)
--- NOTE | 2019-10-06 19:30 | NUR ---
Opening Shift Note Received report and assumed care of patient. Patient is awake and alert. No signs or symptoms of distress noted, patient currently denies pain.Instructed patient on plan of care and to call for assistance as needed, call light within reach. Will continue to monitor.
[2019-10-07] MEDS: IPRATROPIUM BROM 0.5 MG/2.5ML INH SOL NEB SCH ×2 (00:30→06:04)
[2019-10-07] MEDS: LEVALBUTEROL HCL 1.25 MG/3 ML NEB NEB SCH ×2 (00:30→06:04)
[2019-10-07] MEDS: DOXYCYCLINE 100MG/250ML 250 ML IV SCH (04:02)
[2019-10-07 05:00] VITALS: BP 113/67
[2019-10-07] MEDS: ACCU-CHEK COMFORT CURVE STRIP VI SCH ×2 (06:32→12:33)
[2019-10-07] MEDS: SODIUM CHLOR 0.9% PF (SALINE LOCK) 10ML VIAL/SYR IV SCH (06:32)
[2019-10-07] MEDS: InsuLIN REG 1unit/0.01ml Soln (100units/ml) SC SCH ×2 (06:33→12:33)
--- NOTE | 2019-10-07 07:41 | NUR ---
OPENING NOTE Assumed care of patient from NOC RN. Patient awake and alert with no S/S of distress/SOB or pain. Nasal cannula in place, connected to 4L O2. Conway catheter intact/patent and hung below bed to gravity. Instructed on POC and to call for assist PRN, verbalized understanding. Bed in lowest, locked position with side rails up x2. Fall precautions in place and call light within reach. Will continue to monitor for changes Q1hr and PRN.
[2019-10-07 09:12] VITALS: BP 145/75
[2019-10-07] MEDS: SAXAGLIPTIN 5 MG PO SCH (10:00)
--- NOTE | 2019-10-07 10:05 | NUR ---
RESPIRATORY Patient requesting breathing treatment, RT paged.
--- NOTE | 2019-10-07 10:18 | NUR ---
RT RT at bedside.
[2019-10-07] MEDS: METOPROLOL TARTRATE 25 MG TAB PO SCH (10:24)
[2019-10-07] MEDS: POTASSIUM CHL 20 Meq TABLET PO SCH (10:24)
[2019-10-07] MEDS: AZITHROMYCIN 250 MG TAB PO SCH (10:25)
[2019-10-07] MEDS: DRONEDARONE HCL 400 MG TAB PO SCH (10:25)
[2019-10-07] MEDS: ALPRAZolam 0.25 MG TAB PO SCH (10:25)
[2019-10-07] MEDS: ENALAPRIL MALEATE 2.5 MG TAB PO SCH ×2 (10:25→10:50)
[2019-10-07] MEDS: ALBUTEROL SULF 2.5 MG/0.5ML(0.5%) NEB SOLN NEB PRN (10:26)
--- NOTE | 2019-10-07 13:25 | NUR ---
DISCHARGE Discharge instructions given as ordered. Encouraged to follow up with PMD and Pulmonology as instructed. All questions and concerns addressed., patient verbalized understanding. Medication reconciliation form completed and copy given to patient. IV removed with catheter intact, pressure dressing applied and mullen catheter removed. Telemetry unit returned to ICU. Patient taken to vehicle via wheelchair with all personal belongings, accompanied by staff and family member. No distress noted at time of departure.
== END 2019-10-07 13:25 | disposition home or self-care (01) | DRG 133 ==
LOC: EDBD 02:48 → ER 02:51 → TELE 02:52 → TELE-WESTW 16:58
PROVIDERS: ADMIT Internal Medicine; ATTEND Internal Medicine Nephrology
PROC: 5A09357 Assistance with Respiratory Ventilation, Less than 24 Consecutive Hours, Continuous Positive Airway Pressure (ICD-10-PCS; principal; 2019-10-05)
PROC: 5A09357 Assistance with Respiratory Ventilation, Less than 24 Consecutive Hours, Continuous Positive Airway Pressure (ICD-10-PCS; 2019-10-06)
PROC: 5A09357 Assistance with Respiratory Ventilation, Less than 24 Consecutive Hours, Continuous Positive Airway Pressure (ICD-10-PCS; 2019-10-07)
DX: J96.21 Acute and chronic respiratory failure with hypoxia (principal); E87.4 Mixed disorder of acid-base balance; E44.1 Mild protein-calorie malnutrition; N39.0 Urinary tract infection, site not specified; E66.01 Morbid (severe) obesity due to excess calories; I11.0 Hypertensive heart disease with heart failure; J44.0 Chronic obstructive pulmonary disease with (acute) lower respiratory infection; I50.22 Chronic systolic (congestive) heart failure; E11.9 Type 2 diabetes mellitus without complications; B96.20 Unspecified Escherichia coli [E. coli] as the cause of diseases classified elsewhere; D63.8 Anemia in other chronic diseases classified elsewhere; E78.5 Hyperlipidemia, unspecified; G47.33 Obstructive sleep apnea (adult) (pediatric); F32.9 Major depressive disorder, single episode, unspecified; F41.9 Anxiety disorder, unspecified; J96.22 Acute and chronic respiratory failure with hypercapnia; J20.9 Acute bronchitis, unspecified; Z68.43 Body mass index [BMI] 50.0-59.9, adult; Z82.49 Family history of ischemic heart disease and other diseases of the circulatory system; Z82.5 Family history of asthma and other chronic lower respiratory diseases; Z83.3 Family history of diabetes mellitus; Z86.73 Personal history of transient ischemic attack (TIA), and cerebral infarction without residual deficits; Z90.710 Acquired absence of both cervix and uterus; Z95.0 Presence of cardiac pacemaker; Z90.49 Acquired absence of other specified parts of digestive tract; Z90.89 Acquired absence of other organs; Z88.1 Allergy status to other antibiotic agents; Z88.8 Allergy status to other drugs, medicaments and biological substances; Z79.84 Long term (current) use of oral hypoglycemic drugs
CPT/HCPCS: 36415; 36600; 51702; 71045; 80048; 80053; 80307; 81001; 82550; 82805; 82962; 83036; 83735; 83880; 84443; 84484; 85025; 85379; 85610; 85730; 87086; 87088; 87186; 87804; 93005; 94640; 94660; 96365; 96375; G0378; J0171; J1815; J3490

== ENCOUNTER 2020-12-09 11:36 | Inpatient (IN) | payer MEDICARE, MEDICAID ==
[~2020-12-09] VITALS: Ht 160 cm; Wt 126.7 kg
[~2020-12-09 11:36] MED LIST changes: +ALPR0.5T PO; +CHOL20007 PO; +CRAN1CAP9 PO; +DRON400T PO; +FERR-20 PO; +MAGN400C2 PO; +METO25TA5 PO; +MULT-927 PO
[2020-12-09] MEDS ORDERED: ALBUTEROL SULF 2.5 MG/0.5ML(0.5%) NEB SOLN HHN ONE (12:30)
[2020-12-09] MEDS ORDERED: IPRATROPIUM BROM 0.5 MG/2.5ML INH SOL HHN ONE (12:30)
[2020-12-09] MEDS ORDERED: AZITHROMYCIN 500MG/ 250ML 250 ML IV ONE (13:00)
[2020-12-09 14:42] LABS: Basophils # (auto) 0.1 10 ^3/uL (0-0.2); Basophils % (auto) 1.1 % (0.0-2.0); Eosinophils # (auto) 0 10 ^3/uL (0-0.8); Eosinophils % (auto) 0.5 % (0.0-7.0); Hematocrit 30.5 % (36.0-46.0); Hemoglobin 9.8 g/dL (12.2-16.2); Lymphocytes # (auto) 0.9 10 ^3/uL (0.4-5.4); Lymphocytes % (auto) 11.6 % (10.0-50.0); Mean Corpuscular Hemoglobin 28.2 pg (28.0-32.0); Mean Corpuscular Volume 88.2 fL (80.0-100.0); Monocytes # (auto) 0.5 10 ^3/uL (0-1.3); Monocytes % (auto) 6.4 % (0.0-12.0); Neutrophils # (auto) 6.6 10 ^3/uL (1.6-8.6); Neutrophils % (auto) 80.4 % (37.0-80.0); Red Blood Cells 3.46 10^6/uL (4.0-5.20); Red Cell Distribution Width 17.1 % (11.8-14.3); White Blood Cell 8.2 10^3/uL (4.4-10.8)
[2020-12-09 15:38] LABS: Anion Gap 5 (5-15); Calcium 9.3 mg/dL (8.5-10.1); Chloride 95 mmol/L (98-107); Glucose 134 mg/dL (74-106); Magnesium 2.1 mg/dL (1.6-2.6); Potassium 3.8 mmol/L (3.5-5.1); Sodium 142 mmol/L (136-145)
[2020-12-09 15:43] LABS: Alanine Aminotransferase 20 U/L (13-56); Alkaline Phosphatase 88 U/L (45-117); Aspartate Aminotransferase 23 U/L (15-37); BUN/Creatinine Ratio 21.6; Bilirubin, Total 0.5 mg/dL (0.2-1.0); Blood Urea Nitrogen 21 mg/dL (7-18); GFR African American 74 mL/min; GFR Non-African American 61 mL/min; Total Protein 7.8 g/dL (6.4-8.2)
[2020-12-09] MEDS ORDERED: NITROGLYCERIN 0.4 MG SL TAB SL PRN (15:45)
[2020-12-09] MEDS ORDERED: DEXTROSE (50%) 50ML SYRG IV PRN (15:45)
[2020-12-09] MEDS ORDERED: AMIODARONE HCL 150 MG in D5W 5% 100 ML IV ONE (15:45)
[2020-12-09] MEDS ORDERED: FUROSEMIDE 40 MG/4 ML VIAL IV ONE (15:45)
[2020-12-09] MEDS ORDERED: MORPHINE SULFATE INJECTION 2 MG/ML SYRG IV PRN (15:45)
[2020-12-09 15:52] LABS: Carbon Dioxide 42 mmol/L (21-32)
[2020-12-09] MEDS ORDERED: AMIODARONE 450mg/250ml AE 250 ML IV SCH (16:00)
[2020-12-09] MEDS ORDERED: AMIODARONE HCL (50 MG/ ML) 3 ML VIAL IV ONE (16:21)
[2020-12-09] MEDS: ACCU-CHEK COMFORT CURVE STRIP VI SCH ×2 (17:00→21:46)
[2020-12-09] MEDS: InsuLIN REG 1unit/0.01ml Soln (100units/ml) SC SCH ×2 (18:03→21:48)
[2020-12-09] MEDS ORDERED: THROAT LOZENGES(CEPASTAT) MT PRN (18:30)
[2020-12-09] MEDS ORDERED: guaiFENesin-CODEINE Liq 5 ML UD PO PRN (18:30)
[2020-12-09] MEDS: METOPROLOL TARTRATE 25 MG TAB PO SCH ×2 (21:45→22:41)
[2020-12-09] MEDS: POTASSIUM CHL 20 Meq TABLET PO SCH (21:45)
[2020-12-09] MEDS: ALPRAZolam 0.5 MG TAB PO SCH (21:46)
[2020-12-09] MEDS ORDERED: FUROSEMIDE 40 MG TAB PO SCH (22:00)
[2020-12-09] MEDS: AMIODARONE 450mg/250ml AE 250 ML IV SCH (22:40)
[2020-12-10] MEDS: ALBUTEROL SULF 2.5 MG/0.5ML(0.5%) NEB SOLN NEB PRN ×2 (04:05→18:43)
[2020-12-10] MEDS: IPRATROPIUM BROM 0.5 MG/2.5ML INH SOL NEB PRN ×2 (04:05→18:43)
[2020-12-10 06:19] LABS: Basophils # (auto) 0.1 10 ^3/uL (0-0.2); Basophils % (auto) 0.8 % (0.0-2.0); Eosinophils # (auto) 0.1 10 ^3/uL (0-0.8); Hematocrit 30.7 % (36.0-46.0); Hemoglobin 9.7 g/dL (12.2-16.2); Lymphocytes # (auto) 1.3 10 ^3/uL (0.4-5.4); Lymphocytes % (auto) 18.6 % (10.0-50.0); Mean Corpuscular Hemoglobin 28.1 pg (28.0-32.0); Mean Corpuscular Hgb Conc. 31.5 g/dL (32.0-36.0); Mean Corpuscular Volume 88.9 fL (80.0-100.0); Monocytes # (auto) 0.6 10 ^3/uL (0-1.3); Monocytes % (auto) 7.9 % (0.0-12.0); Neutrophils # (auto) 5.1 10 ^3/uL (1.6-8.6); Neutrophils % (auto) 71.7 % (37.0-80.0); Nucleated Red Blood Cells % 0.1 %; Red Blood Cells 3.45 10^6/uL (4.0-5.20); Red Cell Distribution Width 17.7 % (11.8-14.3); White Blood Cell 7.2 10^3/uL (4.4-10.8)
[2020-12-10 06:36] LABS: Potassium 3.8 mmol/L (3.5-5.1)
[2020-12-10 07:01] LABS: Albumin 2.7 g/dL (3.4-5.0); BUN/Creatinine Ratio 22.2; Bilirubin, Total 0.7 mg/dL (0.2-1.0); CRP High Sensitivity 3.95 mg/dL (< 0.3); Calcium 8.5 mg/dL (8.5-10.1); Magnesium 1.8 mg/dL (1.6-2.6); Total Protein 7.3 g/dL (6.4-8.2)
[2020-12-10] MEDS: ACCU-CHEK COMFORT CURVE STRIP VI SCH ×4 (07:41→21:42)
[2020-12-10] MEDS: InsuLIN REG 1unit/0.01ml Soln (100units/ml) SC SCH ×4 (07:43→21:43)
[2020-12-10] MEDS: AZITHROMYCIN 500MG/ 250ML 250 ML IV SCH (09:55)
[2020-12-10] MEDS: FERROUS SULFATE 325mg EC TAB PO SCH (09:55)
[2020-12-10] MEDS: ALPRAZolam 0.5 MG TAB PO SCH ×2 (09:56→21:41)
[2020-12-10] MEDS: MULTIPLE VITAMINS W/ MINERALS TAB PO SCH (09:56)
[2020-12-10] MEDS: ENOXAPARIN SOD 150 MG/1 ML SYRINGE SC SCH ×2 (09:56→21:42)
[2020-12-10] MEDS: POTASSIUM CHL 20 Meq TABLET PO SCH ×2 (09:56→21:41)
[2020-12-10] MEDS ORDERED: FUROSEMIDE 40 MG/4 ML VIAL IV ONE (10:00)
[2020-12-10 10:51] LABS: Urine Bacteria MANY /hpf (None Seen); Urine Blood Negative /uL (Negative); Urine Hyaline Cast FEW /lpf (0 - 2); Urine Specific Gravity 1.015 (1.001-1.035); Urine WBC 15 /hpf (0 - 5)
[2020-12-10] MEDS: AMIODARONE 450mg/250ml AE 250 ML IV SCH (13:03)
[2020-12-10] MEDS: CLINDAMYCIN 600MG IV 50 ML IV SCH ×2 (15:35→21:41)
[2020-12-10 16:00] VITALS: BP 123/57
[2020-12-10] MEDS: FUROSEMIDE 40 MG/4 ML VIAL IV SCH (18:00)
[2020-12-10] MEDS: ACETAMINOPHEN 325 MG TAB PO PRN (18:59)
[2020-12-10] MEDS ORDERED: DICL1GEL72 EX (19:04)
[2020-12-10] MEDS ORDERED: ATOR20TA50 PO (19:04)
[2020-12-10] MEDS ORDERED: RIV15T PO (19:04)
[2020-12-10] MEDS ORDERED: ALBUAER3 IN (19:04)
[2020-12-10] MEDS ORDERED: FURO40TA4 PO (19:04)
[2020-12-10 21:12] VITALS: BP 107/56
[2020-12-10] MEDS: METOPROLOL TARTRATE 25 MG TAB PO SCH (21:41)
[2020-12-11] MEDS: ALBUTEROL SULF 2.5 MG/0.5ML(0.5%) NEB SOLN NEB PRN ×2 (02:55→21:44)
[2020-12-11] MEDS: IPRATROPIUM BROM 0.5 MG/2.5ML INH SOL NEB PRN ×2 (02:55→21:44)
[2020-12-11] MEDS: AMIODARONE 450mg/250ml AE 250 ML IV SCH ×2 (02:58→19:30)
[2020-12-11] MEDS: CLINDAMYCIN 600MG IV 50 ML IV SCH ×3 (06:09→22:15)
[2020-12-11 06:24] VITALS: BP 121/58
[2020-12-11] MEDS: FUROSEMIDE 40 MG/4 ML VIAL IV SCH ×2 (06:27→17:49)
[2020-12-11] MEDS: ACCU-CHEK COMFORT CURVE STRIP VI SCH ×4 (06:44→22:17)
[2020-12-11] MEDS: InsuLIN REG 1unit/0.01ml Soln (100units/ml) SC SCH ×4 (06:44→22:06)
[2020-12-11 06:59] LABS: Basophils # (auto) 0 10 ^3/uL (0-0.2); Basophils % (auto) 0.7 % (0.0-2.0); Eosinophils # (auto) 0.1 10 ^3/uL (0-0.8); Eosinophils % (auto) 1.6 % (0.0-7.0); Hematocrit 28.6 % (36.0-46.0); Hemoglobin 9.2 g/dL (12.2-16.2); Lymphocytes # (auto) 1.2 10 ^3/uL (0.4-5.4); Mean Corpuscular Hemoglobin 28.5 pg (28.0-32.0); Mean Corpuscular Hgb Conc. 32.1 g/dL (32.0-36.0); Mean Corpuscular Volume 88.6 fL (80.0-100.0); Monocytes # (auto) 0.6 10 ^3/uL (0-1.3); Neutrophils # (auto) 5.3 10 ^3/uL (1.6-8.6); Neutrophils % (auto) 72.7 % (37.0-80.0); Red Blood Cells 3.23 10^6/uL (4.0-5.20); Red Cell Distribution Width 17.3 % (11.8-14.3); White Blood Cell 7.2 10^3/uL (4.4-10.8)
[2020-12-11 07:19] LABS: Albumin 2.6 g/dL (3.4-5.0); Calcium 8.7 mg/dL (8.5-10.1); Magnesium 2.3 mg/dL (1.6-2.6)
[2020-12-11 07:23] LABS: BUN/Creatinine Ratio 23.3; Bilirubin, Total 0.5 mg/dL (0.2-1.0)
[2020-12-11 08:46] VITALS: BP 108/41
[2020-12-11] MEDS: FERROUS SULFATE 325mg EC TAB PO SCH (10:00)
[2020-12-11] MEDS: acetaZOLAMIDE 250 MG TAB PO SCH ×2 (10:00→10:02)
[2020-12-11] MEDS: METOPROLOL TARTRATE 25 MG TAB PO SCH ×3 (10:00→22:00)
[2020-12-11] MEDS: AZITHROMYCIN 500MG/ 250ML 250 ML IV SCH (10:00)
[2020-12-11] MEDS: MULTIPLE VITAMINS W/ MINERALS TAB PO SCH (10:01)
[2020-12-11] MEDS: POTASSIUM CHL 20 Meq TABLET PO SCH ×2 (10:01→22:15)
[2020-12-11] MEDS: ALPRAZolam 0.5 MG TAB PO SCH ×2 (10:01→22:16)
[2020-12-11] MEDS: ENOXAPARIN SOD 150 MG/1 ML SYRINGE SC SCH ×2 (10:02→22:17)
[2020-12-11 12:50] VITALS: BP 93/49
[2020-12-11] MEDS: ACETAMINOPHEN 325 MG TAB PO PRN ×2 (13:03→23:22)
[2020-12-11 16:47] VITALS: BP 104/53
[2020-12-11 22:32] VITALS: BP 134/63
[2020-12-12 05:30] VITALS: BP 120/67
[2020-12-12] MEDS: FUROSEMIDE 40 MG/4 ML VIAL IV SCH ×2 (05:53→17:53)
[2020-12-12] MEDS: CLINDAMYCIN 600MG IV 50 ML IV SCH ×3 (05:53→21:59)
[2020-12-12] MEDS: IPRATROPIUM BROM 0.5 MG/2.5ML INH SOL NEB SCH ×5 (06:25→22:39)
[2020-12-12] MEDS: ALBUTEROL SULF 2.5 MG/0.5ML(0.5%) NEB SOLN NEB SCH ×5 (06:25→22:40)
[2020-12-12] MEDS: ACCU-CHEK COMFORT CURVE STRIP VI SCH ×4 (06:46→22:02)
[2020-12-12] MEDS: InsuLIN REG 1unit/0.01ml Soln (100units/ml) SC SCH ×4 (06:47→22:04)
[2020-12-12 07:10] LABS: Albumin 2.5 g/dL (3.4-5.0); Anion Gap 4 (5-15); Blood Urea Nitrogen 18 mg/dL (7-18); Calcium 8.8 mg/dL (8.5-10.1); Carbon Dioxide 37 mmol/L (21-32); Chloride 97 mmol/L (98-107); GFR African American 99 mL/min; GFR Non-African American 82 mL/min; Glucose 143 mg/dL (74-106); Magnesium 2.2 mg/dL (1.6-2.6); Potassium 4.8 mmol/L (3.5-5.1); Sodium 138 mmol/L (136-145)
[2020-12-12 07:16] LABS: Alanine Aminotransferase 21 U/L (13-56); Alkaline Phosphatase 70 U/L (45-117); Aspartate Aminotransferase 48 U/L (15-37); Bilirubin, Total 0.5 mg/dL (0.2-1.0); Total Protein 7.1 g/dL (6.4-8.2)
[2020-12-12 07:35] LABS: Basophils # (auto) 0 10 ^3/uL (0-0.2); Basophils % (auto) 0.6 % (0.0-2.0); Eosinophils # (auto) 0.1 10 ^3/uL (0-0.8); Eosinophils % (auto) 2.2 % (0.0-7.0); Hematocrit 29.6 % (36.0-46.0); Hemoglobin 9.4 g/dL (12.2-16.2); Lymphocytes # (auto) 1.1 10 ^3/uL (0.4-5.4); Lymphocytes % (auto) 17.3 % (10.0-50.0); Mean Corpuscular Hemoglobin 28.9 pg (28.0-32.0); Mean Corpuscular Hgb Conc. 31.7 g/dL (32.0-36.0); Mean Corpuscular Volume 91.4 fL (80.0-100.0); Monocytes # (auto) 0.6 10 ^3/uL (0-1.3); Monocytes % (auto) 9.4 % (0.0-12.0); Neutrophils # (auto) 4.6 10 ^3/uL (1.6-8.6); Neutrophils % (auto) 70.5 % (37.0-80.0); Nucleated Red Blood Cells % 0.1 %; Red Blood Cells 3.23 10^6/uL (4.0-5.20); Red Cell Distribution Width 17.7 % (11.8-14.3); White Blood Cell 6.5 10^3/uL (4.4-10.8)
[2020-12-12 08:25] VITALS: BP 126/71
[2020-12-12] MEDS: METOPROLOL TARTRATE 25 MG TAB PO SCH ×2 (10:00→22:00)
[2020-12-12] MEDS: MULTIPLE VITAMINS W/ MINERALS TAB PO SCH (10:19)
[2020-12-12] MEDS: AMIODARONE 450mg/250ml AE 250 ML IV SCH (10:19)
[2020-12-12] MEDS: ALPRAZolam 0.5 MG TAB PO SCH ×2 (10:19→22:00)
[2020-12-12] MEDS: AZITHROMYCIN 500MG/ 250ML 250 ML IV SCH (10:19)
[2020-12-12] MEDS: POTASSIUM CHL 20 Meq TABLET PO SCH ×2 (10:20→22:01)
[2020-12-12] MEDS: FERROUS SULFATE 325mg EC TAB PO SCH (10:20)
[2020-12-12] MEDS: acetaZOLAMIDE 250 MG TAB PO SCH (10:20)
[2020-12-12] MEDS: ENOXAPARIN SOD 150 MG/1 ML SYRINGE SC SCH ×2 (10:21→22:02)
[2020-12-12 13:40] VITALS: BP 125/63
[2020-12-12 16:36] VITALS: BP 121/59
[2020-12-12 22:00] VITALS: BP 105/47
[2020-12-12] MEDS: ACETAMINOPHEN 325 MG TAB PO PRN (22:00)
[2020-12-13] MEDS: AMIODARONE 450mg/250ml AE 250 ML IV SCH ×2 (01:13→16:19)
[2020-12-13 05:30] VITALS: BP 131/66
[2020-12-13] MEDS: FUROSEMIDE 40 MG/4 ML VIAL IV SCH ×2 (05:51→17:44)
[2020-12-13] MEDS: CLINDAMYCIN 600MG IV 50 ML IV SCH ×2 (05:51→13:38)
[2020-12-13] MEDS: IPRATROPIUM BROM 0.5 MG/2.5ML INH SOL NEB SCH ×4 (06:02→22:07)
[2020-12-13] MEDS: ALBUTEROL SULF 2.5 MG/0.5ML(0.5%) NEB SOLN NEB SCH ×4 (06:03→22:07)
[2020-12-13] MEDS: InsuLIN REG 1unit/0.01ml Soln (100units/ml) SC SCH ×4 (06:07→21:47)
[2020-12-13] MEDS: ACCU-CHEK COMFORT CURVE STRIP VI SCH ×4 (06:07→21:47)
[2020-12-13 06:17] LABS: Basophils # (auto) 0.1 10 ^3/uL (0-0.2); Basophils % (auto) 0.7 % (0.0-2.0); Eosinophils # (auto) 0.1 10 ^3/uL (0-0.8); Eosinophils % (auto) 1.5 % (0.0-7.0); Hematocrit 29.4 % (36.0-46.0); Hemoglobin 9.4 g/dL (12.2-16.2); Lymphocytes % (auto) 13.4 % (10.0-50.0); Mean Corpuscular Hemoglobin 28.7 pg (28.0-32.0); Mean Corpuscular Hgb Conc. 31.9 g/dL (32.0-36.0); Monocytes # (auto) 0.7 10 ^3/uL (0-1.3); Neutrophils # (auto) 5.6 10 ^3/uL (1.6-8.6); Neutrophils % (auto) 75.4 % (37.0-80.0); Nucleated Red Blood Cells % 0.1 %; Red Blood Cells 3.26 10^6/uL (4.0-5.20); Red Cell Distribution Width 17.5 % (11.8-14.3); White Blood Cell 7.5 10^3/uL (4.4-10.8)
[2020-12-13 06:30] LABS: Albumin 2.7 g/dL (3.4-5.0); Calcium 8.9 mg/dL (8.5-10.1); Magnesium 2.4 mg/dL (1.6-2.6)
[2020-12-13 06:34] LABS: BUN/Creatinine Ratio 22.7; Bilirubin, Total 0.4 mg/dL (0.2-1.0); Total Protein 7.8 g/dL (6.4-8.2)
[2020-12-13 06:48] LABS: Potassium 4.3 mmol/L (3.5-5.1)
[2020-12-13 08:30] VITALS: BP 125/62
[2020-12-13 09:00] VITALS: BP 130/51
[2020-12-13] MEDS: acetaZOLAMIDE 250 MG TAB PO SCH (10:00)
[2020-12-13] MEDS: METOPROLOL TARTRATE 25 MG TAB PO SCH ×2 (10:00→21:48)
[2020-12-13] MEDS: ALPRAZolam 0.5 MG TAB PO SCH ×2 (10:07→21:47)
[2020-12-13] MEDS: MULTIPLE VITAMINS W/ MINERALS TAB PO SCH (10:07)
[2020-12-13] MEDS: FERROUS SULFATE 325mg EC TAB PO SCH (10:07)
[2020-12-13] MEDS: POTASSIUM CHL 20 Meq TABLET PO SCH ×2 (10:08→21:48)
[2020-12-13] MEDS: AZITHROMYCIN 500MG/ 250ML 250 ML IV SCH (10:09)
[2020-12-13] MEDS: ENOXAPARIN SOD 150 MG/1 ML SYRINGE SC SCH ×2 (10:10→21:49)
[2020-12-13 13:00] VITALS: BP 144/67
[2020-12-13] MEDS ORDERED: ALBUTEROL SULF 2.5 MG/0.5ML(0.5%) NEB SOLN NEB ONE (13:00)
[2020-12-13] MEDS ORDERED: IPRATROPIUM BROM 0.5 MG/2.5ML INH SOL NEB ONE (13:00)
[2020-12-13] MEDS: DOXYCYCLINE 100MG/250ML 250 ML IV SCH (16:17)
[2020-12-13 17:23] VITALS: BP 110/52
[2020-12-13 22:00] VITALS: BP 115/57
[2020-12-14] MEDS: ALBUTEROL SULF 2.5 MG/0.5ML(0.5%) NEB SOLN NEB SCH ×6 (02:08→22:45)
[2020-12-14] MEDS: IPRATROPIUM BROM 0.5 MG/2.5ML INH SOL NEB SCH ×6 (02:08→22:45)
[2020-12-14] MEDS: DOXYCYCLINE 100MG/250ML 250 ML IV SCH ×2 (03:20→14:40)
[2020-12-14 05:00] VITALS: BP 96/58
[2020-12-14] MEDS: FUROSEMIDE 40 MG/4 ML VIAL IV SCH ×2 (05:37→17:49)
[2020-12-14 06:07] LABS: Basophils # (auto) 0.1 10 ^3/uL (0-0.2); Eosinophils # (auto) 0.1 10 ^3/uL (0-0.8); Hemoglobin 9.1 g/dL (12.2-16.2); Monocytes # (auto) 0.6 10 ^3/uL (0-1.3)
[2020-12-14 06:12] LABS: Basophils % (auto) 0.7 % (0.0-2.0); Hematocrit 29.3 % (36.0-46.0); Lymphocytes # (auto) 1.2 10 ^3/uL (0.4-5.4); Lymphocytes % (auto) 16.5 % (10.0-50.0); Mean Corpuscular Hemoglobin 28.8 pg (28.0-32.0); Mean Corpuscular Hgb Conc. 30.9 g/dL (32.0-36.0); Monocytes % (auto) 8.4 % (0.0-12.0); Neutrophils # (auto) 5.2 10 ^3/uL (1.6-8.6); Neutrophils % (auto) 72.4 % (37.0-80.0); Nucleated Red Blood Cells % 0.3 %; Red Blood Cells 3.15 10^6/uL (4.0-5.20); Red Cell Distribution Width 17.8 % (11.8-14.3); White Blood Cell 7.2 10^3/uL (4.4-10.8)
[2020-12-14 06:29] LABS: Albumin 2.5 g/dL (3.4-5.0); Calcium 8.8 mg/dL (8.5-10.1); Magnesium 2.2 mg/dL (1.6-2.6); Potassium 4.5 mmol/L (3.5-5.1)
[2020-12-14 06:35] LABS: BUN/Creatinine Ratio 25.9; Bilirubin, Total 0.5 mg/dL (0.2-1.0); Total Protein 7.3 g/dL (6.4-8.2)
[2020-12-14] MEDS: ACCU-CHEK COMFORT CURVE STRIP VI SCH ×4 (06:45→21:37)
[2020-12-14] MEDS: InsuLIN REG 1unit/0.01ml Soln (100units/ml) SC SCH ×4 (06:46→21:37)
[2020-12-14] MEDS: AMIODARONE 450mg/250ml AE 250 ML IV SCH ×2 (06:56→21:36)
[2020-12-14 09:00] VITALS: BP 197/90
[2020-12-14] MEDS: POTASSIUM CHL 20 Meq TABLET PO SCH ×2 (09:08→21:37)
[2020-12-14] MEDS: FERROUS SULFATE 325mg EC TAB PO SCH (09:08)
[2020-12-14] MEDS: ALPRAZolam 0.5 MG TAB PO SCH (09:08)
[2020-12-14] MEDS: MULTIPLE VITAMINS W/ MINERALS TAB PO SCH (09:08)
[2020-12-14] MEDS: PANTOPRAZOLE 40 MG TAB PO SCH (09:10)
[2020-12-14] MEDS: METOPROLOL TARTRATE 25 MG TAB PO SCH ×2 (09:13→21:03)
[2020-12-14] MEDS: ENOXAPARIN SOD 150 MG/1 ML SYRINGE SC SCH ×2 (09:13→21:37)
[2020-12-14] MEDS: acetaZOLAMIDE 250 MG TAB PO SCH (10:00)
[2020-12-14 12:35] VITALS: BP 140/73
[2020-12-14 13:25] VITALS: BP 131/78
[2020-12-14 16:48] VITALS: BP 112/78
[2020-12-14] MEDS: LORazepam 2MG/ML-1ML VIAL IV PRN (21:36)
[2020-12-14 22:00] VITALS: BP 100/48
[2020-12-15] VITALS (7 sets, daily range): BP systolic 97–136; BP diastolic 62–97
[2020-12-15] MEDS: ALBUTEROL SULF 2.5 MG/0.5ML(0.5%) NEB SOLN NEB SCH ×6 (02:10→22:03)
[2020-12-15] MEDS: IPRATROPIUM BROM 0.5 MG/2.5ML INH SOL NEB SCH ×6 (02:10→22:03)
[2020-12-15] MEDS: DOXYCYCLINE 100MG/250ML 250 ML IV SCH ×2 (02:52→15:55)
[2020-12-15] MEDS: FUROSEMIDE 40 MG/4 ML VIAL IV SCH ×2 (05:45→17:43)
[2020-12-15] MEDS: InsuLIN REG 1unit/0.01ml Soln (100units/ml) SC SCH ×4 (05:45→21:49)
[2020-12-15] MEDS: ACCU-CHEK COMFORT CURVE STRIP VI SCH ×4 (05:45→21:49)
[2020-12-15 06:39] LABS: Basophils # (auto) 0 10 ^3/uL (0-0.2); Basophils % (auto) 0.6 % (0.0-2.0); Eosinophils # (auto) 0.1 10 ^3/uL (0-0.8); Eosinophils % (auto) 1.6 % (0.0-7.0); Hematocrit 26.9 % (36.0-46.0); Hemoglobin 8.6 g/dL (12.2-16.2); Lymphocytes # (auto) 1.1 10 ^3/uL (0.4-5.4); Lymphocytes % (auto) 18.1 % (10.0-50.0); Mean Corpuscular Hemoglobin 28.2 pg (28.0-32.0); Mean Corpuscular Volume 88.3 fL (80.0-100.0); Monocytes # (auto) 0.5 10 ^3/uL (0-1.3); Neutrophils # (auto) 4.2 10 ^3/uL (1.6-8.6); Neutrophils % (auto) 70.7 % (37.0-80.0); Nucleated Red Blood Cells % 0.2 %; Red Blood Cells 3.05 10^6/uL (4.0-5.20)
[2020-12-15 06:55] LABS: Potassium 4.4 mmol/L (3.5-5.1)
[2020-12-15 07:11] LABS: Albumin 2.4 g/dL (3.4-5.0); BUN/Creatinine Ratio 31.6; Bilirubin, Total 0.5 mg/dL (0.2-1.0); Calcium 8.8 mg/dL (8.5-10.1); Total Protein 7.2 g/dL (6.4-8.2)
[2020-12-15] MEDS: PANTOPRAZOLE 40 MG TAB PO SCH (10:00)
[2020-12-15] MEDS: FERROUS SULFATE 325mg EC TAB PO SCH ×2 (10:00→10:33)
[2020-12-15] MEDS: acetaZOLAMIDE 250 MG TAB PO SCH (10:00)
[2020-12-15] MEDS: METOPROLOL TARTRATE 25 MG TAB PO SCH ×2 (10:00→21:48)
[2020-12-15] MEDS: ENOXAPARIN SOD 150 MG/1 ML SYRINGE SC SCH ×2 (10:34→21:50)
[2020-12-15] MEDS: MULTIPLE VITAMINS W/ MINERALS TAB PO SCH (10:34)
[2020-12-15] MEDS: POTASSIUM CHL 20 Meq TABLET PO SCH ×2 (10:34→21:48)
[2020-12-15] MEDS: LORazepam 2MG/ML-1ML VIAL IV PRN (22:07)
[2020-12-16] MEDS: ALBUTEROL SULF 2.5 MG/0.5ML(0.5%) NEB SOLN NEB SCH ×6 (01:53→21:47)
[2020-12-16] MEDS: IPRATROPIUM BROM 0.5 MG/2.5ML INH SOL NEB SCH ×6 (01:53→21:47)
[2020-12-16] MEDS: DOXYCYCLINE 100MG/250ML 250 ML IV SCH ×2 (02:37→15:47)
[2020-12-16 05:00] VITALS: BP 137/73
[2020-12-16 05:53] LABS: Basophils # (auto) 0.1 10 ^3/uL (0-0.2); Basophils % (auto) 1.2 % (0.0-2.0); Eosinophils # (auto) 0.1 10 ^3/uL (0-0.8); Hematocrit 28.2 % (36.0-46.0); Hemoglobin 9.2 g/dL (12.2-16.2); Lymphocytes # (auto) 1.1 10 ^3/uL (0.4-5.4); Lymphocytes % (auto) 19.7 % (10.0-50.0); Mean Corpuscular Hemoglobin 28.6 pg (28.0-32.0); Mean Corpuscular Hgb Conc. 32.6 g/dL (32.0-36.0); Mean Corpuscular Volume 87.8 fL (80.0-100.0); Monocytes # (auto) 0.5 10 ^3/uL (0-1.3); Monocytes % (auto) 9.2 % (0.0-12.0); Neutrophils # (auto) 3.9 10 ^3/uL (1.6-8.6); Neutrophils % (auto) 67.9 % (37.0-80.0); Red Blood Cells 3.22 10^6/uL (4.0-5.20); Red Cell Distribution Width 17.1 % (11.8-14.3); White Blood Cell 5.8 10^3/uL (4.4-10.8)
[2020-12-16] MEDS: InsuLIN REG 1unit/0.01ml Soln (100units/ml) SC SCH ×4 (06:19→21:51)
[2020-12-16] MEDS: FUROSEMIDE 40 MG/4 ML VIAL IV SCH ×2 (06:19→17:20)
[2020-12-16] MEDS: ACCU-CHEK COMFORT CURVE STRIP VI SCH ×4 (06:19→21:50)
[2020-12-16 06:23] LABS: Calcium 9.3 mg/dL (8.5-10.1); Potassium 4.1 mmol/L (3.5-5.1)
[2020-12-16 06:26] LABS: Albumin 2.6 g/dL (3.4-5.0); BUN/Creatinine Ratio 30.4; Magnesium 2.1 mg/dL (1.6-2.6)
[2020-12-16 06:29] LABS: Bilirubin, Total 0.5 mg/dL (0.2-1.0); Total Protein 7.5 g/dL (6.4-8.2)
[2020-12-16] MEDS: ONDANSETRON HCL 4 MG/2 ML VIAL IV PRN (07:07)
[2020-12-16] MEDS: LORazepam 2MG/ML-1ML VIAL IV PRN ×2 (07:07→23:43)
[2020-12-16 08:21] VITALS: BP 128/71
[2020-12-16] MEDS: PANTOPRAZOLE 40 MG TAB PO SCH (09:39)
[2020-12-16] MEDS: MULTIPLE VITAMINS W/ MINERALS TAB PO SCH (09:39)
[2020-12-16] MEDS: FERROUS SULFATE 325mg EC TAB PO SCH (09:41)
[2020-12-16] MEDS: METOPROLOL TARTRATE 25 MG TAB PO SCH ×2 (10:00→22:00)
[2020-12-16] MEDS: POTASSIUM CHL 20 Meq TABLET PO SCH ×2 (11:15→21:49)
[2020-12-16] MEDS: acetaZOLAMIDE 250 MG TAB PO SCH (11:15)
[2020-12-16] MEDS: ENOXAPARIN SOD 150 MG/1 ML SYRINGE SC SCH ×2 (11:17→21:50)
[2020-12-16 13:20] VITALS: BP 123/54
[2020-12-16 17:06] VITALS: BP 110/50
[2020-12-16 20:00] VITALS: BP 110/50
[2020-12-16 22:00] VITALS: BP 123/58
[2020-12-17] MEDS: ALBUTEROL SULF 2.5 MG/0.5ML(0.5%) NEB SOLN NEB SCH ×6 (02:22→21:52)
[2020-12-17] MEDS: IPRATROPIUM BROM 0.5 MG/2.5ML INH SOL NEB SCH ×6 (02:22→21:52)
[2020-12-17] MEDS: DOXYCYCLINE 100MG/250ML 250 ML IV SCH ×2 (03:23→15:04)
[2020-12-17 05:00] VITALS: BP 115/55
[2020-12-17 05:13] LABS: Basophils # (auto) 0.1 10 ^3/uL (0-0.2); Eosinophils # (auto) 0.1 10 ^3/uL (0-0.8); Eosinophils % (auto) 1.3 % (0.0-7.0); Hematocrit 29.9 % (36.0-46.0); Hemoglobin 9.4 g/dL (12.2-16.2); Lymphocytes # (auto) 1.1 10 ^3/uL (0.4-5.4); Mean Corpuscular Hgb Conc. 31.5 g/dL (32.0-36.0); Mean Corpuscular Volume 88.8 fL (80.0-100.0); Monocytes # (auto) 0.7 10 ^3/uL (0-1.3); Monocytes % (auto) 10.5 % (0.0-12.0); Neutrophils # (auto) 4.7 10 ^3/uL (1.6-8.6); Neutrophils % (auto) 70.2 % (37.0-80.0); Nucleated Red Blood Cells % 0.1 %; Red Blood Cells 3.36 10^6/uL (4.0-5.20); Red Cell Distribution Width 17.4 % (11.8-14.3); White Blood Cell 6.7 10^3/uL (4.4-10.8)
[2020-12-17 05:35] LABS: Potassium 4.1 mmol/L (3.5-5.1)
[2020-12-17 05:41] LABS: Albumin 2.6 g/dL (3.4-5.0); BUN/Creatinine Ratio 28.2; Calcium 9.1 mg/dL (8.5-10.1); Magnesium 2.1 mg/dL (1.6-2.6)
[2020-12-17 05:44] LABS: Bilirubin, Total 0.4 mg/dL (0.2-1.0); Total Protein 7.4 g/dL (6.4-8.2)
[2020-12-17] MEDS: FUROSEMIDE 40 MG/4 ML VIAL IV SCH (05:45)
[2020-12-17] MEDS: InsuLIN REG 1unit/0.01ml Soln (100units/ml) SC SCH ×4 (06:43→21:44)
[2020-12-17] MEDS: ACCU-CHEK COMFORT CURVE STRIP VI SCH ×4 (06:51→21:42)
[2020-12-17 08:23] VITALS: BP 106/72
[2020-12-17] MEDS: METOPROLOL TARTRATE 25 MG TAB PO SCH ×2 (10:00→21:41)
[2020-12-17] MEDS: ENOXAPARIN SOD 150 MG/1 ML SYRINGE SC SCH ×2 (10:43→21:41)
[2020-12-17] MEDS: MULTIPLE VITAMINS W/ MINERALS TAB PO SCH (10:43)
[2020-12-17] MEDS: PANTOPRAZOLE 40 MG TAB PO SCH (10:44)
[2020-12-17] MEDS: FERROUS SULFATE 325mg EC TAB PO SCH (10:44)
[2020-12-17] MEDS: POTASSIUM CHL 20 Meq TABLET PO SCH ×2 (10:45→21:40)
[2020-12-17] MEDS: acetaZOLAMIDE 250 MG TAB PO SCH (10:45)
[2020-12-17] MEDS: LORazepam 2MG/ML-1ML VIAL IV PRN ×2 (11:03→21:42)
[2020-12-17 13:00] VITALS: BP 141/69
[2020-12-17 16:48] VITALS: BP 138/70
[2020-12-17] MEDS: ACETAMINOPHEN 325 MG TAB PO PRN ×2 (17:40→21:42)
[2020-12-17 22:00] VITALS: BP 130/82
[2020-12-18] MEDS: ALBUTEROL SULF 2.5 MG/0.5ML(0.5%) NEB SOLN NEB SCH ×6 (01:46→22:30)
[2020-12-18] MEDS: IPRATROPIUM BROM 0.5 MG/2.5ML INH SOL NEB SCH ×6 (01:46→22:30)
[2020-12-18] MEDS: DOXYCYCLINE 100MG/250ML 250 ML IV SCH ×2 (02:23→15:49)
[2020-12-18] MEDS: LORazepam 2MG/ML-1ML VIAL IV PRN ×2 (04:15→22:17)
[2020-12-18 05:00] VITALS: BP 142/62
[2020-12-18] MEDS: ACCU-CHEK COMFORT CURVE STRIP VI SCH ×4 (06:00→22:20)
[2020-12-18] MEDS: InsuLIN REG 1unit/0.01ml Soln (100units/ml) SC SCH ×4 (06:03→22:00)
[2020-12-18 08:42] VITALS: BP 130/61
[2020-12-18] MEDS: FUROSEMIDE 40 MG/4 ML VIAL IV SCH (10:09)
[2020-12-18] MEDS: acetaZOLAMIDE 250 MG TAB PO SCH (10:10)
[2020-12-18] MEDS: FERROUS SULFATE 325mg EC TAB PO SCH (10:10)
[2020-12-18] MEDS: METOPROLOL TARTRATE 25 MG TAB PO SCH ×2 (10:11→22:00)
[2020-12-18] MEDS: MULTIPLE VITAMINS W/ MINERALS TAB PO SCH (10:11)
[2020-12-18] MEDS: POTASSIUM CHL 20 Meq TABLET PO SCH ×2 (10:11→22:17)
[2020-12-18] MEDS: ENOXAPARIN SOD 150 MG/1 ML SYRINGE SC SCH ×2 (10:12→22:20)
[2020-12-18] MEDS: PANTOPRAZOLE 40 MG TAB PO SCH (10:12)
[2020-12-18 10:23] LABS: Basophils # (auto) 0.1 10 ^3/uL (0-0.2); Basophils % (auto) 1.1 % (0.0-2.0); Eosinophils # (auto) 0.1 10 ^3/uL (0-0.8); Eosinophils % (auto) 1.6 % (0.0-7.0); Hematocrit 31.3 % (36.0-46.0); Hemoglobin 9.8 g/dL (12.2-16.2); Lymphocytes # (auto) 0.8 10 ^3/uL (0.4-5.4); Lymphocytes % (auto) 12.2 % (10.0-50.0); Mean Corpuscular Hemoglobin 27.9 pg (28.0-32.0); Mean Corpuscular Hgb Conc. 31.4 g/dL (32.0-36.0); Mean Corpuscular Volume 88.7 fL (80.0-100.0); Monocytes # (auto) 0.5 10 ^3/uL (0-1.3); Monocytes % (auto) 8.1 % (0.0-12.0); Neutrophils # (auto) 4.8 10 ^3/uL (1.6-8.6); Nucleated Red Blood Cells % 0.1 %; Red Blood Cells 3.53 10^6/uL (4.0-5.20); Red Cell Distribution Width 17.3 % (11.8-14.3); White Blood Cell 6.3 10^3/uL (4.4-10.8)
[2020-12-18] MEDS: ONDANSETRON HCL 4 MG/2 ML VIAL IV PRN (10:24)
[2020-12-18 10:33] VITALS: BP 130/61
[2020-12-18 10:42] LABS: Potassium 4.3 mmol/L (3.5-5.1)
[2020-12-18 10:50] LABS: Albumin 2.7 g/dL (3.4-5.0); BUN/Creatinine Ratio 32.9; Bilirubin, Total 0.4 mg/dL (0.2-1.0); Calcium 9.2 mg/dL (8.5-10.1); Magnesium 2.1 mg/dL (1.6-2.6); Total Protein 7.8 g/dL (6.4-8.2)
[2020-12-18 12:47] VITALS: BP 129/68
[2020-12-18 16:34] VITALS: BP 103/53
[2020-12-18 22:19] VITALS: BP 130/60
[2020-12-19] MEDS: ALBUTEROL SULF 2.5 MG/0.5ML(0.5%) NEB SOLN NEB SCH ×6 (01:51→22:00)
[2020-12-19] MEDS: IPRATROPIUM BROM 0.5 MG/2.5ML INH SOL NEB SCH ×6 (01:51→22:00)
[2020-12-19] MEDS: DOXYCYCLINE 100MG/250ML 250 ML IV SCH ×2 (02:27→15:15)
[2020-12-19] MEDS: ACETAMINOPHEN 325 MG TAB PO PRN ×3 (02:28→23:50)
[2020-12-19 05:10] VITALS: BP 126/56
[2020-12-19] MEDS: LORazepam 2MG/ML-1ML VIAL IV PRN ×2 (06:31→23:40)
[2020-12-19] MEDS: InsuLIN REG 1unit/0.01ml Soln (100units/ml) SC SCH ×4 (06:47→21:55)
[2020-12-19] MEDS: ACCU-CHEK COMFORT CURVE STRIP VI SCH ×4 (07:01→22:38)
[2020-12-19 09:00] VITALS: BP 133/54
[2020-12-19] MEDS: FUROSEMIDE 40 MG/4 ML VIAL IV SCH (09:13)
[2020-12-19] MEDS: POTASSIUM CHL 20 Meq TABLET PO SCH ×2 (09:14→22:34)
[2020-12-19] MEDS: FERROUS SULFATE 325mg EC TAB PO SCH (09:14)
[2020-12-19] MEDS: METOPROLOL TARTRATE 25 MG TAB PO SCH ×3 (09:15→22:35)
[2020-12-19] MEDS: ENOXAPARIN SOD 150 MG/1 ML SYRINGE SC SCH ×2 (09:15→22:48)
[2020-12-19] MEDS: MULTIPLE VITAMINS W/ MINERALS TAB PO SCH (09:15)
[2020-12-19] MEDS: PANTOPRAZOLE 40 MG TAB PO SCH (09:16)
[2020-12-19] MEDS: acetaZOLAMIDE 250 MG TAB PO SCH (09:36)
[2020-12-19 09:55] LABS: Albumin 2.7 g/dL (3.4-5.0); Calcium 9.3 mg/dL (8.5-10.1); Magnesium 2.3 mg/dL (1.6-2.6); Potassium 4.6 mmol/L (3.5-5.1)
[2020-12-19 09:59] LABS: BUN/Creatinine Ratio 30.2; Bilirubin, Total 0.3 mg/dL (0.2-1.0); Phosphorus 3.2 mg/dL (2.5-4.90); Total Protein 7.6 g/dL (6.4-8.2)
[2020-12-19 12:39] VITALS: BP 128/52
[2020-12-19 16:45] VITALS: BP 118/49
[2020-12-19 22:17] VITALS: BP 122/51
[2020-12-20] MEDS: DOXYCYCLINE 100MG/250ML 250 ML IV SCH ×2 (03:15→15:08)
[2020-12-20 04:50] VITALS: BP 100/53
[2020-12-20] MEDS: ALBUTEROL SULF 2.5 MG/0.5ML(0.5%) NEB SOLN NEB SCH ×5 (05:50→22:00)
[2020-12-20] MEDS: IPRATROPIUM BROM 0.5 MG/2.5ML INH SOL NEB SCH ×5 (05:50→22:00)
[2020-12-20] MEDS: LORazepam 2MG/ML-1ML VIAL IV PRN ×2 (05:56→12:27)
[2020-12-20] MEDS: InsuLIN REG 1unit/0.01ml Soln (100units/ml) SC SCH ×4 (06:19→22:40)
[2020-12-20] MEDS: ACCU-CHEK COMFORT CURVE STRIP VI SCH ×4 (07:00→22:00)
[2020-12-20 09:00] VITALS: BP 122/64
[2020-12-20] MEDS: ENOXAPARIN SOD 150 MG/1 ML SYRINGE SC SCH ×2 (09:50→22:38)
[2020-12-20] MEDS: FUROSEMIDE 40 MG/4 ML VIAL IV SCH (09:51)
[2020-12-20] MEDS: POTASSIUM CHL 20 Meq TABLET PO SCH ×2 (09:51→22:38)
[2020-12-20] MEDS: PANTOPRAZOLE 40 MG TAB PO SCH (09:51)
[2020-12-20] MEDS: MULTIPLE VITAMINS W/ MINERALS TAB PO SCH (09:51)
[2020-12-20] MEDS: METOPROLOL TARTRATE 25 MG TAB PO SCH ×2 (09:53→22:38)
[2020-12-20] MEDS: acetaZOLAMIDE 250 MG TAB PO SCH (09:54)
[2020-12-20] MEDS: FERROUS SULFATE 325mg EC TAB PO SCH (10:00)
[2020-12-20 12:50] VITALS: BP 115/63
[2020-12-20 16:50] VITALS: BP 123/65
[2020-12-20 22:00] VITALS: BP 142/68
[2020-12-20] MEDS: LINEZOLID 600MG/300ML 300 ML IV SCH (22:39)
[2020-12-20] MEDS: ACETAMINOPHEN 325 MG TAB PO PRN (23:13)
[2020-12-20] MEDS ORDERED: diphenhdrAMINE HCL 25 MG CAP PO ONE (23:15)
[2020-12-21 01:01] VITALS: BP 143/69
[2020-12-21] MEDS: LORazepam 2MG/ML-1ML VIAL IV PRN ×3 (01:08→22:41)
[2020-12-21] MEDS: IPRATROPIUM BROM 0.5 MG/2.5ML INH SOL NEB SCH ×6 (02:10→22:18)
[2020-12-21] MEDS: ALBUTEROL SULF 2.5 MG/0.5ML(0.5%) NEB SOLN NEB SCH ×6 (02:10→22:18)
[2020-12-21 05:00] VITALS: BP 105/63
[2020-12-21] MEDS: ACCU-CHEK COMFORT CURVE STRIP VI SCH ×4 (06:23→22:52)
[2020-12-21] MEDS: InsuLIN REG 1unit/0.01ml Soln (100units/ml) SC SCH ×4 (06:36→23:17)
[2020-12-21] MEDS: LINEZOLID 600MG/300ML 300 ML IV SCH (08:20)
[2020-12-21] MEDS: FERROUS SULFATE 325mg EC TAB PO SCH (08:28)
[2020-12-21] MEDS: MULTIPLE VITAMINS W/ MINERALS TAB PO SCH (08:28)
[2020-12-21] MEDS: PANTOPRAZOLE 40 MG TAB PO SCH (08:28)
[2020-12-21] MEDS: ENOXAPARIN SOD 150 MG/1 ML SYRINGE SC SCH (08:29)
[2020-12-21] MEDS: FUROSEMIDE 40 MG/4 ML VIAL IV SCH (08:29)
[2020-12-21] MEDS: POTASSIUM CHL 20 Meq TABLET PO SCH ×2 (08:29→22:52)
[2020-12-21] MEDS: METOPROLOL TARTRATE 25 MG TAB PO SCH ×2 (08:34→22:52)
[2020-12-21 09:00] VITALS: BP 124/63
[2020-12-21 13:00] VITALS: BP 120/66
[2020-12-21] MEDS ORDERED: FLEET ENEMA(ADULT) 135 ML PR ONE (14:15)
[2020-12-21] MEDS ORDERED: MILK OF MAGNESIA 30ML SUSP PO ONE (14:15)
[2020-12-21 14:26] LABS: Basophils # (auto) 0.1 10 ^3/uL (0-0.2); Basophils % (auto) 1.2 % (0.0-2.0); Eosinophils # (auto) 0.2 10 ^3/uL (0-0.8); Eosinophils % (auto) 2.4 % (0.0-7.0); Hematocrit 31.8 % (36.0-46.0); Hemoglobin 10.1 g/dL (12.2-16.2); Lymphocytes # (auto) 1.2 10 ^3/uL (0.4-5.4); Lymphocytes % (auto) 17.4 % (10.0-50.0); Mean Corpuscular Hemoglobin 28.1 pg (28.0-32.0); Mean Corpuscular Hgb Conc. 31.9 g/dL (32.0-36.0); Mean Corpuscular Volume 88.1 fL (80.0-100.0); Monocytes # (auto) 0.6 10 ^3/uL (0-1.3); Monocytes % (auto) 8.3 % (0.0-12.0); Neutrophils # (auto) 4.7 10 ^3/uL (1.6-8.6); Neutrophils % (auto) 70.7 % (37.0-80.0); Nucleated Red Blood Cells % 0.1 %; Red Cell Distribution Width 17.1 % (11.8-14.3); White Blood Cell 6.7 10^3/uL (4.4-10.8)
[2020-12-21 14:47] LABS: Albumin 2.8 g/dL (3.4-5.0); Calcium 9.2 mg/dL (8.5-10.1); Magnesium 2.1 mg/dL (1.6-2.6); Potassium 4.2 mmol/L (3.5-5.1)
[2020-12-21 14:55] LABS: BUN/Creatinine Ratio 31.6; Bilirubin, Total 0.4 mg/dL (0.2-1.0); Total Protein 8.1 g/dL (6.4-8.2)
[2020-12-21] MEDS: DOXYCYCLINE 100MG/250ML 250 ML IV SCH (15:30)
[2020-12-21 16:35] VITALS: BP 121/65
[2020-12-21] MEDS: acetaZOLAMIDE 250 MG TAB PO SCH (20:28)
[2020-12-21 22:00] VITALS: BP 127/63
[2020-12-22] MEDS: IPRATROPIUM BROM 0.5 MG/2.5ML INH SOL NEB SCH ×6 (02:24→22:58)
[2020-12-22] MEDS: ALBUTEROL SULF 2.5 MG/0.5ML(0.5%) NEB SOLN NEB SCH ×6 (02:24→22:58)
[2020-12-22] MEDS: DOXYCYCLINE 100MG/250ML 250 ML IV SCH ×2 (03:43→16:08)
[2020-12-22] MEDS: ACETAMINOPHEN 325 MG TAB PO PRN (04:03)
[2020-12-22 05:00] VITALS: BP 109/53
[2020-12-22] MEDS: ACCU-CHEK COMFORT CURVE STRIP VI SCH ×4 (06:30→22:35)
[2020-12-22] MEDS: InsuLIN REG 1unit/0.01ml Soln (100units/ml) SC SCH ×4 (06:33→22:35)
[2020-12-22] MEDS: FERROUS SULFATE 325mg EC TAB PO SCH (08:00)
[2020-12-22] MEDS: LORazepam 2MG/ML-1ML VIAL IV PRN (08:15)
[2020-12-22 09:00] VITALS: BP 117/57
[2020-12-22] MEDS ORDERED: LACTULOSE 20Gm/30ML SOLN PO SCH (10:00)
[2020-12-22] MEDS: METOPROLOL TARTRATE 25 MG TAB PO SCH ×2 (10:00→22:35)
[2020-12-22] MEDS: FUROSEMIDE 40 MG/4 ML VIAL IV SCH (10:08)
[2020-12-22] MEDS: MULTIPLE VITAMINS W/ MINERALS TAB PO SCH (10:09)
[2020-12-22] MEDS: PANTOPRAZOLE 40 MG TAB PO SCH (10:09)
[2020-12-22] MEDS: POTASSIUM CHL 20 Meq TABLET PO SCH ×2 (10:09→22:35)
[2020-12-22] MEDS: acetaZOLAMIDE 250 MG TAB PO SCH (11:23)
[2020-12-22 13:00] VITALS: BP 140/71
[2020-12-22 17:00] VITALS: BP 152/54
[2020-12-22] MEDS: ALPRAZolam 0.5 MG TAB PO PRN (20:55)
[2020-12-22 22:00] VITALS: BP 138/68
[2020-12-22] MEDS: LACTULOSE 20Gm/30ML SOLN PO SCH (22:35)
[2020-12-23] MEDS: IPRATROPIUM BROM 0.5 MG/2.5ML INH SOL NEB SCH ×6 (02:15→22:19)
[2020-12-23] MEDS: ALBUTEROL SULF 2.5 MG/0.5ML(0.5%) NEB SOLN NEB SCH ×6 (02:15→22:19)
[2020-12-23] MEDS: DOXYCYCLINE 100MG/250ML 250 ML IV SCH ×2 (03:52→16:05)
[2020-12-23 04:58] VITALS: BP 102/56
[2020-12-23 05:43] LABS: Basophils # (auto) 0.1 10 ^3/uL (0-0.2); Basophils % (auto) 1.3 % (0.0-2.0); Eosinophils # (auto) 0.2 10 ^3/uL (0-0.8); Eosinophils % (auto) 2.7 % (0.0-7.0); Hematocrit 30.7 % (36.0-46.0); Hemoglobin 9.6 g/dL (12.2-16.2); Lymphocytes # (auto) 1.2 10 ^3/uL (0.4-5.4); Lymphocytes % (auto) 16.6 % (10.0-50.0); Mean Corpuscular Hemoglobin 27.6 pg (28.0-32.0); Mean Corpuscular Hgb Conc. 31.2 g/dL (32.0-36.0); Mean Corpuscular Volume 88.5 fL (80.0-100.0); Monocytes # (auto) 0.6 10 ^3/uL (0-1.3); Monocytes % (auto) 8.9 % (0.0-12.0); Neutrophils # (auto) 4.9 10 ^3/uL (1.6-8.6); Neutrophils % (auto) 70.5 % (37.0-80.0); Red Blood Cells 3.47 10^6/uL (4.0-5.20); Red Cell Distribution Width 17.3 % (11.8-14.3)
[2020-12-23 06:04] LABS: Albumin 2.8 g/dL (3.4-5.0); BUN/Creatinine Ratio 25.6; Calcium 9.5 mg/dL (8.5-10.1); Potassium 4.4 mmol/L (3.5-5.1)
[2020-12-23 06:07] LABS: Bilirubin, Total 0.4 mg/dL (0.2-1.0); Total Protein 7.9 g/dL (6.4-8.2)
[2020-12-23] MEDS: ACCU-CHEK COMFORT CURVE STRIP VI SCH ×4 (06:30→22:25)
[2020-12-23] MEDS: InsuLIN REG 1unit/0.01ml Soln (100units/ml) SC SCH ×5 (06:31→22:25)
[2020-12-23 09:00] VITALS: BP 113/55
[2020-12-23] MEDS: LACTULOSE 20Gm/30ML SOLN PO SCH ×2 (09:58→22:25)
[2020-12-23] MEDS: FERROUS SULFATE 325mg EC TAB PO SCH (09:58)
[2020-12-23] MEDS: MULTIPLE VITAMINS W/ MINERALS TAB PO SCH (09:59)
[2020-12-23] MEDS: PANTOPRAZOLE 40 MG TAB PO SCH (09:59)
[2020-12-23] MEDS: METOPROLOL TARTRATE 25 MG TAB PO SCH ×2 (10:00→22:25)
[2020-12-23] MEDS: POTASSIUM CHL 20 Meq TABLET PO SCH ×2 (10:00→22:25)
[2020-12-23] MEDS: acetaZOLAMIDE 250 MG TAB PO SCH (10:00)
[2020-12-23] MEDS: ALPRAZolam 0.5 MG TAB PO PRN ×2 (10:01→23:05)
[2020-12-23] MEDS: FUROSEMIDE 40 MG/4 ML VIAL IV SCH (10:02)
[2020-12-23 13:00] VITALS: BP 131/68
[2020-12-23 17:00] VITALS: BP 134/68
[2020-12-23] MEDS: ONDANSETRON HCL 4 MG/2 ML VIAL IV PRN (18:43)
[2020-12-23 22:12] VITALS: BP 110/58
[2020-12-23] MEDS: ENOXAPARIN SOD 150 MG/1 ML SYRINGE SC SCH (22:25)
[2020-12-23 23:23] VITALS: BP 110/58
[2020-12-24] MEDS: ALBUTEROL SULF 2.5 MG/0.5ML(0.5%) NEB SOLN NEB SCH ×6 (01:58→21:54)
[2020-12-24] MEDS: IPRATROPIUM BROM 0.5 MG/2.5ML INH SOL NEB SCH ×6 (01:59→21:54)
[2020-12-24] MEDS: DOXYCYCLINE 100MG/250ML 250 ML IV SCH ×2 (04:31→15:57)
[2020-12-24 05:02] VITALS: BP 124/64
[2020-12-24] MEDS: ACCU-CHEK COMFORT CURVE STRIP VI SCH ×4 (06:50→22:00)
[2020-12-24] MEDS: InsuLIN REG 1unit/0.01ml Soln (100units/ml) SC SCH ×4 (06:50→21:59)
[2020-12-24 09:00] VITALS: BP 106/50
[2020-12-24] MEDS: METOPROLOL TARTRATE 25 MG TAB PO SCH ×2 (10:00→22:00)
[2020-12-24] MEDS: MULTIPLE VITAMINS W/ MINERALS TAB PO SCH (10:16)
[2020-12-24] MEDS: FERROUS SULFATE 325mg EC TAB PO SCH (10:16)
[2020-12-24] MEDS: PANTOPRAZOLE 40 MG TAB PO SCH (10:16)
[2020-12-24] MEDS: POTASSIUM CHL 20 Meq TABLET PO SCH ×2 (10:16→22:00)
[2020-12-24] MEDS: FUROSEMIDE 40 MG/4 ML VIAL IV SCH (10:17)
[2020-12-24] MEDS: LACTULOSE 20Gm/30ML SOLN PO SCH ×2 (10:20→22:00)
[2020-12-24] MEDS: ENOXAPARIN SOD 150 MG/1 ML SYRINGE SC SCH ×2 (10:20→22:00)
[2020-12-24] MEDS: acetaZOLAMIDE 250 MG TAB PO SCH (10:21)
[2020-12-24] MEDS: ALPRAZolam 0.5 MG TAB PO PRN ×2 (10:38→22:00)
[2020-12-24] MEDS ORDERED: FLEET ENEMA(ADULT) 135 ML PR ONE (12:30)
[2020-12-24 13:00] VITALS: BP 110/62
[2020-12-24 17:00] VITALS: BP 120/65
[2020-12-24 22:08] VITALS: BP 121/55
[2020-12-25] MEDS: ALBUTEROL SULF 2.5 MG/0.5ML(0.5%) NEB SOLN NEB SCH ×5 (02:04→22:56)
[2020-12-25] MEDS: IPRATROPIUM BROM 0.5 MG/2.5ML INH SOL NEB SCH ×5 (02:04→22:56)
[2020-12-25] MEDS: DOXYCYCLINE 100MG/250ML 250 ML IV SCH ×2 (05:20→14:24)
[2020-12-25 05:29] VITALS: BP 115/39
[2020-12-25 06:37] LABS: Basophils # (auto) 0.1 10 ^3/uL (0-0.2); Basophils % (auto) 0.7 % (0.0-2.0); Eosinophils # (auto) 0.2 10 ^3/uL (0-0.8); Eosinophils % (auto) 2.2 % (0.0-7.0); Hematocrit 32.3 % (36.0-46.0); Hemoglobin 10.1 g/dL (12.2-16.2); Lymphocytes # (auto) 1.2 10 ^3/uL (0.4-5.4); Lymphocytes % (auto) 14.7 % (10.0-50.0); Mean Corpuscular Hemoglobin 27.7 pg (28.0-32.0); Mean Corpuscular Hgb Conc. 31.3 g/dL (32.0-36.0); Mean Corpuscular Volume 88.6 fL (80.0-100.0); Monocytes # (auto) 0.7 10 ^3/uL (0-1.3); Monocytes % (auto) 8.5 % (0.0-12.0); Neutrophils # (auto) 6.1 10 ^3/uL (1.6-8.6); Neutrophils % (auto) 73.9 % (37.0-80.0); Red Blood Cells 3.64 10^6/uL (4.0-5.20); Red Cell Distribution Width 17.5 % (11.8-14.3); White Blood Cell 8.2 10^3/uL (4.4-10.8)
[2020-12-25] MEDS: ACCU-CHEK COMFORT CURVE STRIP VI SCH ×4 (06:51→22:00)
[2020-12-25] MEDS: InsuLIN REG 1unit/0.01ml Soln (100units/ml) SC SCH ×4 (06:53→22:41)
[2020-12-25] MEDS: FERROUS SULFATE 325mg EC TAB PO SCH (07:44)
[2020-12-25 08:46] VITALS: BP 112/60
[2020-12-25] MEDS: LACTULOSE 20Gm/30ML SOLN PO SCH ×2 (09:41→22:00)
[2020-12-25] MEDS: PANTOPRAZOLE 40 MG TAB PO SCH (09:41)
[2020-12-25] MEDS: POTASSIUM CHL 20 Meq TABLET PO SCH ×2 (09:42→22:38)
[2020-12-25] MEDS: MULTIPLE VITAMINS W/ MINERALS TAB PO SCH (09:42)
[2020-12-25] MEDS: acetaZOLAMIDE 250 MG TAB PO SCH (09:42)
[2020-12-25] MEDS: ENOXAPARIN SOD 150 MG/1 ML SYRINGE SC SCH ×2 (09:43→22:39)
[2020-12-25] MEDS: FUROSEMIDE 40 MG/4 ML VIAL IV SCH (09:43)
[2020-12-25] MEDS: METOPROLOL TARTRATE 25 MG TAB PO SCH ×3 (10:00→22:38)
[2020-12-25] MEDS: ALPRAZolam 0.5 MG TAB PO PRN ×2 (12:14→22:41)
[2020-12-25 13:00] VITALS: BP 107/66
[2020-12-25 16:52] VITALS: BP 132/74
[2020-12-25 22:00] VITALS: BP 110/61
[2020-12-26] MEDS: ALBUTEROL SULF 2.5 MG/0.5ML(0.5%) NEB SOLN NEB SCH ×6 (02:18→21:56)
[2020-12-26] MEDS: IPRATROPIUM BROM 0.5 MG/2.5ML INH SOL NEB SCH ×6 (02:18→21:56)
[2020-12-26] MEDS: DOXYCYCLINE 100MG/250ML 250 ML IV SCH ×2 (02:54→14:35)
[2020-12-26 05:00] VITALS: BP 123/73
[2020-12-26] MEDS: InsuLIN REG 1unit/0.01ml Soln (100units/ml) SC SCH ×4 (06:06→22:20)
[2020-12-26] MEDS: ACCU-CHEK COMFORT CURVE STRIP VI SCH ×4 (06:06→22:07)
[2020-12-26] MEDS: FERROUS SULFATE 325mg EC TAB PO SCH (08:00)
[2020-12-26 08:21] VITALS: BP 136/66
[2020-12-26] MEDS: ENOXAPARIN SOD 150 MG/1 ML SYRINGE SC SCH ×2 (09:55→22:20)
[2020-12-26] MEDS: acetaZOLAMIDE 250 MG TAB PO SCH (09:55)
[2020-12-26] MEDS: POTASSIUM CHL 20 Meq TABLET PO SCH ×2 (09:59→22:19)
[2020-12-26] MEDS: MULTIPLE VITAMINS W/ MINERALS TAB PO SCH (09:59)
[2020-12-26] MEDS: PANTOPRAZOLE 40 MG TAB PO SCH (09:59)
[2020-12-26] MEDS: METOPROLOL TARTRATE 25 MG TAB PO SCH ×2 (09:59→22:19)
[2020-12-26] MEDS: LACTULOSE 20Gm/30ML SOLN PO SCH ×2 (10:00→22:00)
[2020-12-26 14:06] VITALS: BP 114/60
[2020-12-26] MEDS: FUROSEMIDE 40 MG/4 ML VIAL IV SCH (14:35)
[2020-12-26 16:26] VITALS: BP 131/62
[2020-12-26 18:50] VITALS: BP 131/62
[2020-12-26 22:00] VITALS: BP 117/54
[2020-12-26] MEDS: ALPRAZolam 0.5 MG TAB PO PRN (22:21)
[2020-12-27] VITALS (7 sets, daily range): BP systolic 102–140; BP diastolic 55–97
[2020-12-27] MEDS: ALBUTEROL SULF 2.5 MG/0.5ML(0.5%) NEB SOLN NEB SCH ×6 (02:43→22:00)
[2020-12-27] MEDS: IPRATROPIUM BROM 0.5 MG/2.5ML INH SOL NEB SCH ×6 (02:43→22:00)
[2020-12-27] MEDS: DOXYCYCLINE 100MG/250ML 250 ML IV SCH ×2 (03:30→15:30)
[2020-12-27] MEDS: ACCU-CHEK COMFORT CURVE STRIP VI SCH ×4 (06:28→22:00)
[2020-12-27] MEDS: InsuLIN REG 1unit/0.01ml Soln (100units/ml) SC SCH ×4 (06:31→22:00)
[2020-12-27] MEDS: FERROUS SULFATE 325mg EC TAB PO SCH (08:00)
[2020-12-27] MEDS: POTASSIUM CHL 20 Meq TABLET PO SCH ×2 (09:28→22:00)
[2020-12-27] MEDS: MULTIPLE VITAMINS W/ MINERALS TAB PO SCH (09:28)
[2020-12-27] MEDS: ENOXAPARIN SOD 150 MG/1 ML SYRINGE SC SCH ×2 (09:29→22:00)
[2020-12-27] MEDS: PANTOPRAZOLE 40 MG TAB PO SCH (09:29)
[2020-12-27] MEDS: acetaZOLAMIDE 250 MG TAB PO SCH (09:29)
[2020-12-27] MEDS: METOPROLOL TARTRATE 25 MG TAB PO SCH ×2 (09:29→22:00)
[2020-12-27] MEDS: LACTULOSE 20Gm/30ML SOLN PO SCH ×2 (09:30→22:00)
[2020-12-27] MEDS: FUROSEMIDE 40 MG/4 ML VIAL IV SCH (09:32)
[2020-12-28] MEDS: DOXYCYCLINE 100MG/250ML 250 ML IV SCH (01:54)
[2020-12-28] MEDS: ALBUTEROL SULF 2.5 MG/0.5ML(0.5%) NEB SOLN NEB SCH ×2 (02:00→06:10)
[2020-12-28] MEDS: IPRATROPIUM BROM 0.5 MG/2.5ML INH SOL NEB SCH ×2 (02:00→06:10)
[2020-12-28 05:00] VITALS: BP 126/64
[2020-12-28] MEDS: InsuLIN REG 1unit/0.01ml Soln (100units/ml) SC SCH (06:37)
[2020-12-28] MEDS: ACCU-CHEK COMFORT CURVE STRIP VI SCH (06:37)
[2020-12-28 08:00] VITALS: BP 137/61
[2020-12-28] MEDS: FERROUS SULFATE 325mg EC TAB PO SCH (08:25)
[2020-12-28] MEDS: METOPROLOL TARTRATE 25 MG TAB PO SCH (09:54)
[2020-12-28] MEDS: PANTOPRAZOLE 40 MG TAB PO SCH (09:54)
[2020-12-28] MEDS: POTASSIUM CHL 20 Meq TABLET PO SCH (09:55)
[2020-12-28] MEDS: ENOXAPARIN SOD 150 MG/1 ML SYRINGE SC SCH (09:56)
[2020-12-28] MEDS: acetaZOLAMIDE 250 MG TAB PO SCH (09:57)
[2020-12-28] MEDS: MULTIPLE VITAMINS W/ MINERALS TAB PO SCH (09:57)
[2020-12-28] MEDS: LACTULOSE 20Gm/30ML SOLN PO SCH (09:57)
[2020-12-28] MEDS: FUROSEMIDE 40 MG/4 ML VIAL IV SCH (10:00)
[2020-12-28] MEDS: ALPRAZolam 0.5 MG TAB PO PRN (10:04)
== END 2020-12-28 11:15 | disposition home health service (06) | DRG 133 ==
LOC: EDBD 11:36 → ER 11:36 → TELE 15:44 → TELE-CENTR 12-10 13:02
PROVIDERS: ADMIT Nurse Practitioner; ATTEND Nurse Practitioner
PROC: 4B02XSZ Measurement of Cardiac Pacemaker, External Approach (ICD-10-PCS; principal; 2020-12-13)
PROC: 5A09457 Assistance with Respiratory Ventilation, 24-96 Consecutive Hours, Continuous Positive Airway Pressure (ICD-10-PCS; 2020-12-13)
DX: J96.21 Acute and chronic respiratory failure with hypoxia (principal); J44.1 Chronic obstructive pulmonary disease with (acute) exacerbation; J18.9 Pneumonia, unspecified organism; Z20.822 Contact with and (suspected) exposure to COVID-19; E66.01 Morbid (severe) obesity due to excess calories; E78.5 Hyperlipidemia, unspecified; J98.11 Atelectasis; I48.92 Unspecified atrial flutter; Z95.0 Presence of cardiac pacemaker; Z68.43 Body mass index [BMI] 50.0-59.9, adult; I48.91 Unspecified atrial fibrillation; E11.40 Type 2 diabetes mellitus with diabetic neuropathy, unspecified; L89.90 Pressure ulcer of unspecified site, unspecified stage; D63.8 Anemia in other chronic diseases classified elsewhere; E44.1 Mild protein-calorie malnutrition; I11.0 Hypertensive heart disease with heart failure; I50.22 Chronic systolic (congestive) heart failure; J44.0 Chronic obstructive pulmonary disease with (acute) lower respiratory infection; F32.9 Major depressive disorder, single episode, unspecified; F41.9 Anxiety disorder, unspecified; Z79.01 Long term (current) use of anticoagulants; Z82.49 Family history of ischemic heart disease and other diseases of the circulatory system; Z82.5 Family history of asthma and other chronic lower respiratory diseases; Z83.3 Family history of diabetes mellitus; Z86.73 Personal history of transient ischemic attack (TIA), and cerebral infarction without residual deficits; Z90.710 Acquired absence of both cervix and uterus; Z98.51 Tubal ligation status; Z88.1 Allergy status to other antibiotic agents; Z88.8 Allergy status to other drugs, medicaments and biological substances
CPT/HCPCS: 36415; 36600; 51702; 71045; 71250; 80053; 80061; 81001; 82805; 82962; 83036; 83605; 83735; 83880; 84100; 84443; 84484; 85025; 85379; 86141; 87040; 87070; 87205; 87426; 93005; 93306; 93970; 94640; 94660; 96365; 97530; G0378; J1815; J2405; J3490; J7060

== ENCOUNTER 2020-12-29 18:47 | Inpatient (IN) | payer MEDICARE, MEDICAID ==
[~2020-12-29] VITALS: Ht 167.6 cm; Wt 133.3 kg
[~2020-12-29 18:47] MED LIST changes: +ALBUAER3 IN; +ATOR20TA50 PO; -CRAN1CAP9 PO; +DICL1GEL72 EX; -MULT-927 PO; -ONGLYZA PO; +RIV15T PO; -RIV20T PO; -[UNRECOGNIZED DRUG - OTHER] IN
[2020-12-29 21:15] LABS: Basophils # (auto) 0 10 ^3/uL (0-0.2); Basophils % (auto) 0.2 % (0.0-2.0); Eosinophils # (auto) 0.2 10 ^3/uL (0-0.8); Eosinophils % (auto) 1.9 % (0.0-7.0); Hematocrit 37.4 % (36.0-46.0); Hemoglobin 11.8 g/dL (12.2-16.2); Lymphocytes # (auto) 1.4 10 ^3/uL (0.4-5.4); Lymphocytes % (auto) 13.5 % (10.0-50.0); Mean Corpuscular Hemoglobin 27.7 pg (28.0-32.0); Mean Corpuscular Hgb Conc. 31.6 g/dL (32.0-36.0); Mean Corpuscular Volume 87.9 fL (80.0-100.0); Monocytes # (auto) 0.7 10 ^3/uL (0-1.3); Monocytes % (auto) 6.7 % (0.0-12.0); Neutrophils % (auto) 77.7 % (37.0-80.0); Nucleated Red Blood Cells % 0.1 %; Red Blood Cells 4.26 10^6/uL (4.0-5.20); Red Cell Distribution Width 17.8 % (11.8-14.3); White Blood Cell 10.3 10^3/uL (4.4-10.8)
[2020-12-29 21:31] LABS: INR 1.07 (0.9-1.15)
[2020-12-29 21:39] LABS: Albumin 3.4 g/dL (3.4-5.0); Anion Gap 4 (5-15); Blood Urea Nitrogen 43 mg/dL (7-18); Carbon Dioxide 32 mmol/L (21-32); Chloride 100 mmol/L (98-107); Glucose 186 mg/dL (74-106); Magnesium 2.3 mg/dL (1.6-2.6); Sodium 136 mmol/L (136-145)
[2020-12-29 21:50] LABS: Alanine Aminotransferase 28 U/L (13-56); Alkaline Phosphatase 106 U/L (45-117); Aspartate Aminotransferase 25 U/L (15-37); BUN/Creatinine Ratio 29.7; Bilirubin, Total 0.3 mg/dL (0.2-1.0); GFR African American 46 mL/min; GFR Non-African American 38 mL/min; Total Protein 9.2 g/dL (6.4-8.2)
[2020-12-29 22:42] LABS: Urine Bacteria FEW /hpf (None Seen); Urine Blood Negative /uL (Negative); Urine Specific Gravity 1.024 (1.001-1.035); Urine WBC 7 /hpf (0 - 5)
[2020-12-30] VITALS (7 sets, daily range): BP systolic 106–136; BP diastolic 54–71
[2020-12-30] MEDS ORDERED: NITROGLYCERIN 0.4 MG SL TAB SL PRN (04:00)
[2020-12-30] MEDS ORDERED: HYDROcodone-ACET 5/325MG TAB PO PRN (04:00)
[2020-12-30] MEDS ORDERED: DOCUSATE SOD 100 MG CAP PO PRN (04:00)
[2020-12-30] MEDS ORDERED: DEXTROSE (50%) 50ML SYRG IV PRN (04:00)
[2020-12-30] MEDS ORDERED: MORPHINE SULFATE INJECTION 2 MG/ML SYRG IV PRN (04:00)
[2020-12-30] MEDS ORDERED: ONDANSETRON HCL 4 MG/2 ML VIAL IV PRN (04:00)
[2020-12-30 04:41] LABS: Basophils # (auto) 0.1 10 ^3/uL (0-0.2); Basophils % (auto) 0.9 % (0.0-2.0); Eosinophils # (auto) 0.2 10 ^3/uL (0-0.8); Eosinophils % (auto) 2.1 % (0.0-7.0); Hematocrit 34.1 % (36.0-46.0); Hemoglobin 10.7 g/dL (12.2-16.2); Lymphocytes # (auto) 1.4 10 ^3/uL (0.4-5.4); Lymphocytes % (auto) 16.7 % (10.0-50.0); Mean Corpuscular Hemoglobin 27.8 pg (28.0-32.0); Mean Corpuscular Hgb Conc. 31.5 g/dL (32.0-36.0); Mean Corpuscular Volume 88.2 fL (80.0-100.0); Monocytes # (auto) 0.8 10 ^3/uL (0-1.3); Monocytes % (auto) 9.8 % (0.0-12.0); Neutrophils # (auto) 5.7 10 ^3/uL (1.6-8.6); Neutrophils % (auto) 70.5 % (37.0-80.0); Nucleated Red Blood Cells % 0.1 %; Red Blood Cells 3.86 10^6/uL (4.0-5.20); Red Cell Distribution Width 17.5 % (11.8-14.3); White Blood Cell 8.1 10^3/uL (4.4-10.8)
[2020-12-30 05:30] LABS: BUN/Creatinine Ratio 33.3; Calcium 9.8 mg/dL (8.5-10.1); Potassium 5.3 mmol/L (3.5-5.1)
[2020-12-30 05:33] LABS: Bilirubin, Total 0.3 mg/dL (0.2-1.0); Total Protein 8.3 g/dL (6.4-8.2)
[2020-12-30] MEDS ORDERED: FUROSEMIDE 20 MG/2 ML VIAL IV SCH (06:00)
[2020-12-30] MEDS: SODIUM CHLOR 0.9% PF (SALINE LOCK) 10ML VIAL/SYR IV SCH ×3 (06:00→21:57)
[2020-12-30] MEDS ORDERED: ALBUTEROL SULF HFA 90MCG INH 200DOSE IN SCH (06:00)
[2020-12-30] MEDS: ACCU-CHEK COMFORT CURVE STRIP VI SCH ×4 (06:55→21:59)
[2020-12-30] MEDS: InsuLIN REG 1unit/0.01ml Soln (100units/ml) SC SCH ×4 (06:56→22:01)
[2020-12-30] MEDS ORDERED: CHOL20007 PO (07:14)
[2020-12-30] MEDS ORDERED: FURO40TA4 PO (07:14)
[2020-12-30] MEDS ORDERED: FERR-20 PO (07:14)
[2020-12-30] MEDS ORDERED: ALBUAER3 IN (07:14)
[2020-12-30] MEDS: ZINC SULFATE 220mg CAP or TAB PO SCH (09:46)
[2020-12-30] MEDS: MULTIPLE VITAMIN TAB PO SCH (09:47)
[2020-12-30] MEDS: ASCORBIC ACID 500 MG TAB PO SCH ×2 (09:47→21:58)
[2020-12-30] MEDS ORDERED: HEPARIN SODIUM (PORCINE) 5000 UNITS/ML 1ML VIAL SC SCH (10:00)
[2020-12-30] MEDS: ACETAMINOPHEN 325 MG TAB PO PRN (13:32)
[2020-12-30] MEDS ORDERED: cefTRIAXone 1GM/50ML D5W 50 ML IV ONE (14:00)
[2020-12-30] MEDS: ALBUTEROL SULF 2.5 MG/0.5ML(0.5%) NEB SOLN NEB SCH ×3 (15:20→22:24)
[2020-12-30] MEDS: IPRATROPIUM BROM 0.5 MG/2.5ML INH SOL NEB SCH ×3 (15:20→22:24)
[2020-12-30] MEDS: FUROSEMIDE 40 MG TAB PO SCH (17:43)
[2020-12-30] MEDS: RIVAROXABAN 15 MG TAB PO SCH (17:43)
[2020-12-30] MEDS: METOPROLOL TARTRATE 25 MG TAB PO SCH (21:57)
[2020-12-30] MEDS: ALPRAZolam 0.5 MG TAB PO SCH (21:58)
[2020-12-30] MEDS: ATORVASTATIN 20 MG TAB PO SCH (22:09)
[2020-12-31 05:00] VITALS: BP 136/56
[2020-12-31] MEDS: SODIUM CHLOR 0.9% PF (SALINE LOCK) 10ML VIAL/SYR IV SCH ×3 (05:23→21:06)
[2020-12-31] MEDS: FUROSEMIDE 40 MG TAB PO SCH ×2 (05:24→18:16)
[2020-12-31] MEDS: ACETAMINOPHEN 325 MG TAB PO PRN (05:26)
[2020-12-31 05:59] LABS: Albumin 2.8 g/dL (3.4-5.0); Potassium 4.4 mmol/L (3.5-5.1)
[2020-12-31 06:00] LABS: BUN/Creatinine Ratio 35.3
[2020-12-31 06:03] LABS: Bilirubin, Total 0.3 mg/dL (0.2-1.0); Total Protein 7.5 g/dL (6.4-8.2)
[2020-12-31 06:11] LABS: Basophils # (auto) 0.1 10 ^3/uL (0-0.2); Basophils % (auto) 0.8 % (0.0-2.0); Eosinophils # (auto) 0.2 10 ^3/uL (0-0.8); Eosinophils % (auto) 2.4 % (0.0-7.0); Hematocrit 29.9 % (36.0-46.0); Hemoglobin 9.5 g/dL (12.2-16.2); Lymphocytes # (auto) 1.6 10 ^3/uL (0.4-5.4); Lymphocytes % (auto) 21.9 % (10.0-50.0); Mean Corpuscular Hemoglobin 27.8 pg (28.0-32.0); Mean Corpuscular Hgb Conc. 31.7 g/dL (32.0-36.0); Mean Corpuscular Volume 87.6 fL (80.0-100.0); Monocytes # (auto) 0.7 10 ^3/uL (0-1.3); Monocytes % (auto) 9.3 % (0.0-12.0); Neutrophils # (auto) 4.8 10 ^3/uL (1.6-8.6); Neutrophils % (auto) 65.6 % (37.0-80.0); Red Blood Cells 3.42 10^6/uL (4.0-5.20); Red Cell Distribution Width 17.6 % (11.8-14.3); White Blood Cell 7.3 10^3/uL (4.4-10.8)
[2020-12-31] MEDS: ACCU-CHEK COMFORT CURVE STRIP VI SCH ×4 (06:48→22:33)
[2020-12-31] MEDS: InsuLIN REG 1unit/0.01ml Soln (100units/ml) SC SCH ×4 (06:54→22:35)
[2020-12-31] MEDS: ALBUTEROL SULF 2.5 MG/0.5ML(0.5%) NEB SOLN NEB SCH ×6 (07:21→22:44)
[2020-12-31] MEDS: IPRATROPIUM BROM 0.5 MG/2.5ML INH SOL NEB SCH ×6 (07:21→22:44)
[2020-12-31] MEDS: cefTRIAXone 1GM/50ML D5W 50 ML IV SCH (08:39)
[2020-12-31 09:00] VITALS: BP 121/57
[2020-12-31] MEDS ORDERED: DOXYCYCLINE 100MG/250ML 250 ML IV SCH (10:00)
[2020-12-31] MEDS: ZINC SULFATE 220mg CAP or TAB PO SCH (10:37)
[2020-12-31] MEDS: METOPROLOL TARTRATE 25 MG TAB PO SCH ×2 (10:37→22:00)
[2020-12-31] MEDS: MULTIPLE VITAMIN TAB PO SCH (10:38)
[2020-12-31] MEDS: ASCORBIC ACID 500 MG TAB PO SCH ×2 (10:39→22:32)
[2020-12-31] MEDS: ALPRAZolam 0.5 MG TAB PO SCH ×2 (10:39→22:32)
[2020-12-31] MEDS ORDERED: DOCUSATE SOD 100 MG CAP PO PRN (12:00)
[2020-12-31] MEDS ORDERED: FLUCONAZOLE 100 MG TAB PO ONE (12:00)
[2020-12-31 13:00] VITALS: BP 144/72
[2020-12-31 17:00] VITALS: BP 140/62
[2020-12-31] MEDS: RIVAROXABAN 15 MG TAB PO SCH (18:14)
[2020-12-31 20:00] VITALS: BP 110/50
[2020-12-31 21:50] VITALS: BP 110/50
[2020-12-31] MEDS: DOXYCYCLINE 100 MG TAB/CAP PO SCH (22:32)
[2020-12-31] MEDS: ATORVASTATIN 20 MG TAB PO SCH (22:32)
[2021-01-01 05:22] VITALS: BP 123/61
[2021-01-01] MEDS: SODIUM CHLOR 0.9% PF (SALINE LOCK) 10ML VIAL/SYR IV SCH ×2 (06:16→14:43)
[2021-01-01] MEDS: FUROSEMIDE 40 MG TAB PO SCH ×2 (06:17→17:35)
[2021-01-01] MEDS: InsuLIN REG 1unit/0.01ml Soln (100units/ml) SC SCH ×3 (06:17→17:35)
[2021-01-01] MEDS: ACCU-CHEK COMFORT CURVE STRIP VI SCH ×3 (06:17→17:28)
[2021-01-01] MEDS: ALBUTEROL SULF 2.5 MG/0.5ML(0.5%) NEB SOLN NEB SCH ×3 (06:40→14:10)
[2021-01-01] MEDS: IPRATROPIUM BROM 0.5 MG/2.5ML INH SOL NEB SCH ×3 (06:40→14:11)
[2021-01-01] MEDS: cefTRIAXone 1GM/50ML D5W 50 ML IV SCH (08:53)
[2021-01-01 08:56] LABS: Basophils # (auto) 0.1 10 ^3/uL (0-0.2); Eosinophils # (auto) 0.1 10 ^3/uL (0-0.8); Eosinophils % (auto) 1.9 % (0.0-7.0); Hematocrit 30.8 % (36.0-46.0); Hemoglobin 9.9 g/dL (12.2-16.2); Lymphocytes # (auto) 1.4 10 ^3/uL (0.4-5.4); Lymphocytes % (auto) 18.3 % (10.0-50.0); Mean Corpuscular Hemoglobin 28.3 pg (28.0-32.0); Mean Corpuscular Hgb Conc. 32.2 g/dL (32.0-36.0); Mean Corpuscular Volume 87.7 fL (80.0-100.0); Monocytes # (auto) 0.7 10 ^3/uL (0-1.3); Monocytes % (auto) 9.5 % (0.0-12.0); Neutrophils # (auto) 5.2 10 ^3/uL (1.6-8.6); Neutrophils % (auto) 69.3 % (37.0-80.0); Red Blood Cells 3.51 10^6/uL (4.0-5.20); Red Cell Distribution Width 17.4 % (11.8-14.3); White Blood Cell 7.6 10^3/uL (4.4-10.8)
[2021-01-01] MEDS: ACETAMINOPHEN 325 MG TAB PO PRN (08:56)
[2021-01-01] MEDS: ZINC SULFATE 220mg CAP or TAB PO SCH (08:56)
[2021-01-01] MEDS: DOXYCYCLINE 100 MG TAB/CAP PO SCH (08:56)
[2021-01-01] MEDS: ASCORBIC ACID 500 MG TAB PO SCH (08:56)
[2021-01-01] MEDS: ALPRAZolam 0.5 MG TAB PO SCH (08:56)
[2021-01-01] MEDS: MULTIPLE VITAMIN TAB PO SCH (08:56)
[2021-01-01 09:00] VITALS: BP 128/54
[2021-01-01] MEDS: METOPROLOL TARTRATE 25 MG TAB PO SCH (09:04)
[2021-01-01 09:10] LABS: BUN/Creatinine Ratio 36.2; Calcium 9.1 mg/dL (8.5-10.1); Magnesium 1.9 mg/dL (1.6-2.6); Potassium 4.4 mmol/L (3.5-5.1)
[2021-01-01 13:00] VITALS: BP 136/69
[2021-01-01 16:38] VITALS: BP 147/79
[2021-01-01 17:00] VITALS: BP 131/73
[2021-01-01] MEDS: RIVAROXABAN 15 MG TAB PO SCH (17:35)
== END 2021-01-01 18:45 | DRG 140 ==
LOC: EDBD 18:47 → ER 18:49 → TELE 18:50 → TELE-EAST 12-30 06:22 → TELE-CENTR 12-30 14:57
PROVIDERS: ADMIT Nurse Practitioner Family; ATTEND Internal Medicine
DX: J44.0 Chronic obstructive pulmonary disease with (acute) lower respiratory infection (principal); J96.21 Acute and chronic respiratory failure with hypoxia; J44.1 Chronic obstructive pulmonary disease with (acute) exacerbation; J18.9 Pneumonia, unspecified organism; E11.40 Type 2 diabetes mellitus with diabetic neuropathy, unspecified; E66.01 Morbid (severe) obesity due to excess calories; E11.65 Type 2 diabetes mellitus with hyperglycemia; N39.0 Urinary tract infection, site not specified; F41.9 Anxiety disorder, unspecified; Z68.42 Body mass index [BMI] 45.0-49.9, adult; E78.5 Hyperlipidemia, unspecified; I48.91 Unspecified atrial fibrillation; F32.9 Major depressive disorder, single episode, unspecified; G47.33 Obstructive sleep apnea (adult) (pediatric); L03.116 Cellulitis of left lower limb; L03.115 Cellulitis of right lower limb; Z20.822 Contact with and (suspected) exposure to COVID-19; Z79.899 Other long term (current) drug therapy; Z80.9 Family history of malignant neoplasm, unspecified; Z82.49 Family history of ischemic heart disease and other diseases of the circulatory system; Z82.5 Family history of asthma and other chronic lower respiratory diseases; Z83.3 Family history of diabetes mellitus; Z86.73 Personal history of transient ischemic attack (TIA), and cerebral infarction without residual deficits; Z90.710 Acquired absence of both cervix and uterus; Z88.1 Allergy status to other antibiotic agents; Z88.8 Allergy status to other drugs, medicaments and biological substances; Z98.51 Tubal ligation status; I13.0 Hypertensive heart and chronic kidney disease with heart failure and stage 1 through stage 4 chronic kidney disease, or unspecified chronic kidney disease; N18.31 Chronic kidney disease, stage 3a; I50.22 Chronic systolic (congestive) heart failure; N17.9 Acute kidney failure, unspecified
CPT/HCPCS: 36415; 51702; 71045; 80048; 80053; 81001; 82962; 83605; 83735; 83880; 84484; 85025; 85610; 87081; 87086; 87426; 93005; 94640; 96365; 96375; G0378; J0696; J1815; J3490